=== PATIENT | female | born 1990 | race Caucasian/White ===

== ENCOUNTER 2022-11-24 20:44 | Outpatient (REF) | payer BC, SELFPAY ==
[2022-11-28 11:09] LABS: Age Gdln ACOG Testing Note (.); HPV Aptima Negative (Negative); IGP, Aptima HPV, rfx 16/18,45 Note (.)
== END 2022-11-24 20:45 | disposition home or self-care (01) ==
LOC: LAB 20:44
PROVIDERS: Visit Provider Physician Assistant
DX: Z12.4 Encounter for screening for malignant neoplasm of cervix (principal)
CPT/HCPCS: G0145

== ENCOUNTER 2023-12-30 19:39 | Outpatient (REF) | payer BC, SELFPAY ==
[2024-01-06 12:09] LABS: Age Gdln ACOG Testing Note (.); HPV Aptima Negative (Negative); IGP, Aptima HPV, rfx 16/18,45 Note (.)
== END 2023-12-30 19:40 | disposition home or self-care (01) ==
LOC: LAB 19:39
PROVIDERS: Visit Provider Physician Assistant
DX: Z01.419 Encounter for gynecological examination (general) (routine) without abnormal findings (principal)
CPT/HCPCS: 88175

== ENCOUNTER 2025-02-22 15:21 | Outpatient (REF) | payer BC, SELFPAY ==
--- OUTSIDE RECORDS SUMMARY | 2025-02-22 10:00 | XMS_ITS | Encounter Summary ---
Author Organization [facility] Address [address] [place] [address] Care Team Providers Care Marine Engineering Consultant Name Role Phone Rossana Reyes MD Primary Care Provider [phone] Reason for Visit * ReasonCommentsGynecologic Exam Encounter Details DateTypeDepartmentCare Team (Latest Contact Info)Bhaqqahnchz47/26/2025 10:00 AM ESTProcedure Visit [facility] [address] [facility] [id number] Ashely Nowak PA [address] [facility] [address] [place], [facility]11 Well woman exam with routine gynecological exam; Vaginal pain; Pelvic pain in female; Irregular periods/menstrual cycles Social History Tobacco UseTypesPacks/DayYears UsedDateSmoking Tobacco: NeverAlcohol UseStandard Drinks/WeekCommentsNot Currently0 (1 standard drink = 0.6 oz pure alcohol) CommentsNoSex and Gender InformationValueDate RecordedSex Assigned at BirthNot on fileLegal DojQexzei59/15/2023 11:47 PM EDTGender IdentityNot on file Sexual OrientationNot on filedocumented as of this encounter Last Filed Vital Signs Vital SignReadingTime TakenCommentsBlood Qpwxexqe598/7402/22/2025 10:03 AM EST Pulse--Temperature--Respiratory Rate--Oxygen Saturation--Inhaled Oxygen Concentration--Dandta239 kg (292 lb 1.9 oz)02/22/2025 10:03 AM ESTHeight--Body Mass Index45.7510 1:13 PM EDTdocumented in this encounter Progress Notes * CONNOR Otero - 02/22/2025 10:00 AM EST Reason for Appointment: Patient ID: Eli Leahy is a 34 y.o. female who presents for Gynecologic Exam Patient presents today for Annual Exam. and STD Check. MEDICATIONS Current Outpatient Medications Medication Instructions albuterol 2.5 mg, Every 4 hours PRN ferrous sulfate 325 (65 Fe) MG tablet TAKE 1 TABLET BY MOUTH IN THE MORNING AND IN THE EVENING. TAKE WITH MEALS. DO ALL THIS FOR 30 DAYS. ferrous sulfate 325 (65 Fe) MG tablet TAKE 1 TABLET BY MOUTH IN THE MORNING AND IN THE EVENING. TAKE WITH MEALS. DO ALL THIS FOR 30 DAYS. ibuprofen 800 MG tablet TAKE 1 TABLET BY MOUTH EVERY 8 HOURS NEEDED WITH FOOD montelukast (SINGULAIR) 10 mg, Oral, Daily sertraline (ZOLOFT) 25 mg, Daily Wixela Inhub 250-50 MCG/ACT aerosol powder INHALE 1 PUFF BY MOUTH AND INTO THE LUNGS TWICE DAILY FOR 30 DAYS. RINSE AFTER USE ALLERGIES Allergies Allergen Reactions Shellfish Allergy Shortness of breath Iodine Unknown Other Unknown PROBLEMS Active Ambulatory Problems Diagnosis Date Noted Well woman exam with routine gynecological exam 02/22/2025 Pelvic pain in female 02/22/2025 Resolved Ambulatory Problems Diagnosis Date Noted No Resolved Ambulatory Problems Past Medical History: Diagnosis Date Allergic rhinitis Anemia in ([facility]) Asthma (HCC) Cardiac murmur Hammer toe Heart palpitations Heartburn during ([facility]) HISTORY PAST MEDICAL HISTORY SOCIAL HISTORY Past Medical History: Diagnosis Date Allergic rhinitis Anemia in ([facility]) Asthma (HCC) Cardiac murmur Hammer toe Heart palpitations Heartburn during ([facility]) Social History Tobacco Use Smoking status: Never Smokeless tobacco: Not on file Vaping Use Vaping status: Never Used Substance Use Topics Alcohol use: Not Currently Drug use: Never FAMILY HISTORY No family history on file. SURGICAL HISTORY Past Surgical History: Procedure Laterality Date SECTION, LOW TRANSVERSE 09/19/2019 SECTION, LOW TRANSVERSE 02/03/2022 CT GUIDED TRANSVAGINAL TRANSRECTAL FLUID DRAIN 06/06/2020 CT GUIDED TRANSVAGINAL TRANSRECTAL FLUID DRAIN 06/06/2020 REVIEW OF SYSTEMS Review of Systems: Review of Systems Constitutional: Negative. HENT: Negative. Eyes: Negative. Respiratory: Negative. Cardiovascular: Negative. Gastrointestinal: Negative. Genitourinary: Negative. Musculoskeletal: Negative. Skin: Negative. Neurological: Negative. All other systems reviewed and are negative. Hematological: Negative. Endocrine: Negative. Allergic/Immunologic: Negative. OBJECTIVE Objective: Physical Exam Constitutional: Appearance: Normal appearance. She is well-developed. Genitourinary: Vulva normal. Right Adnexa: not tender and no mass present. Left Adnexa: not tender and no mass present. No cervical discharge. Breasts: Breasts are soft. Right: Normal. Left: Normal. HENT: Head: Normocephalic. Nose: Nose normal. Mouth/Throat: Mouth: Mucous membranes are moist. Cardiovascular: Rate and Rhythm: Normal rate and regular rhythm. Pulmonary: Effort: Pulmonary effort is normal. Breath sounds: Normal breath sounds. Abdominal: General: Bowel sounds are normal. There is no distension. Palpations: Abdomen is soft. Tenderness: There is no abdominal tenderness. There is no guarding or rebound. Musculoskeletal: General: No swelling. Normal range of motion. Cervical back: Normal range of motion. Right lower leg: No edema. Left lower leg: No edema. Neurological: General: No focal deficit present. Mental Status: She is alert and oriented to person, place, and time. Skin: General: Skin is warm and dry. Psychiatric: Mood and Affect: Mood normal. Behavior: Behavior normal. Vitals and nursing note reviewed. Exam conducted with a profile shaper operator present. Vitals: Estimated body mass index is 45.75 kg/m?? as calculated from the following: Height as of 12/30/23: 5' 7 . Weight as of this encounter: 292 lb 1.9 oz. BP: 118/74 Patient's last menstrual period was 02/17/2025 (exact date). ASSESSMENT & PLAN ICD-10-CM 1. Well woman exam with routine gynecological exam Z01.419 Pap Smear HPV DNA probe, amplified POCT urinalysis dipstick manually resulted 2. Vaginal pain R10.20 POCT urinalysis dipstick manually resulted SURESWAB(R) ADVANCED VAGINITIS PLUS, TMA CHLAMYDIA TRACHOMATIS (GENITO/STI) Neisseria gonorrhea DNA probe, direct 3. Pelvic pain in female R10.20 SURESWAB(R) ADVANCED VAGINITIS PLUS, TMA CHLAMYDIA TRACHOMATIS (GENITO/STI) Neisseria gonorrhea DNA probe, direct US Pelvis w/ TV 4. Irregular periods/menstrual cycles N92.6 US Pelvis w/ TV Orders Placed This Encounter Procedures HPV DNA probe, amplified US Pelvis w/ TV CHLAMYDIA TRACHOMATIS (GENITO/STI) Neisseria gonorrhea DNA probe, direct POCT urinalysis dipstick manually resulted Annual Wellness Exam: Patient presents today for routine annual exam. Patient states she has complaints of AUB and pelvicpain, pt given ultrasound order to have obtained. . Patients vitals were reviewed and within normal limits. Growth and development is noted to be appropriate for age. Menstrual history is noted to be irregular with concerns reported. No mental health concerns was expressed. Pap Smear: Speculum was inserted into the vagina and pap was obtained without difficulty. HPV testing was performed per age guideline. Patient was advised that pap results could take anywhere from 7 to 10 days to receive and our office will reach out to the patient with those once we have them. Patient can also view results via [employer]. I reinforced importance of condom use for STI prevention. Patient requested cultures to be performed with today's visit. Breast Exam: Upon examination, clinical breast exam was noted to be normal. Patient was counseled on breast self-awareness, including the importance of knowing what is normal for her own breasts and promptly reporting any changes such as new lumps, skin dimpling, nipple discharge, or pain. Screening mammogram recommended annually beginning at age 40 or earlier if risk factors are present. Discussed signs and symptoms of breast cancer and when to seek medical attention. Answered all patient questions. Contraceptive Counseling (if applicable): Patient is currently using vasectomy as a form of contraceptive. Patient does not desire control at this time. Follow Up: Patient is to return to our office in one year for annual exam unless needed otherwise. Documented by Vanessa Maria LPN on behalf of: CONNOR Otero documented in this encounter Plan of Treatment DateTypeDepartmentCare Team (Latest Contact Info)Zusmuxmaqmw45/10/2025 9:00 AM ESTAncillary Procedure [facility] [address] [place] [id number] 02/27/2026 11:00 AM ESTProcedure Visit [facility] [address] [facility] [place] [phone] Ashely Nowak PA [address] [facility] [place] [address] NameTypePriorityAssociated DiagnosesOrder SchedulePap SmearPathology and CytologyRoutine Well woman exam with routine gynecological exam Ordered: 02/22/2025HPV DNA probe, amplifiedMicrobiologyRoutine Well woman exam with routine gynecological exam Ordered: 02/22/2025SURESWAB(R) ADVANCED VAGINITIS PLUS, TMAPathology and CytologyRoutine Vaginal pain Pelvic pain in female Ordered: 02/22/2025HLAMYDIA TRACHOMATIS (GENITO/STI)LabRoutine Vaginal pain Pelvic pain in female Ordered: 02/22/2025Neisseria gonorrhea DNA probe, directLabRoutine Vaginal pain Pelvic pain in female Ordered: 02/22/2025US Pelvis w/ TVImagingRoutine Pelvic pain in female Irregular periods/menstrual cycles Expected: 02/22/2025, Expires: 08/22/2025documented as of this encounter Procedures Procedure NamePriorityDate/TimeAssociated DiagnosisCommentsPOCT URINALYSIS PLEOEIWQUvpkaod17/26/2025 10:48 AM EST Well woman exam with routine gynecological exam Vaginal pain documented in this encounter Results * POCT urinalysis dipstick manually resulted (02/22/2025 10:48 AM EST)Component ValueRef RangeTest MethodAnalysis TimePerformed AtPathologist SignatureColor, UAYellowClarity, UAClearGlucose, UANegativeNegative - 2000(110) ++++ mg/dL Bilirubin, UANegativeNegative - 4(70) +++ mg/dLKetones, UANegativeNegative - 160(16) ++++ mg/dLSpec Grav, UA1.0151 - 1.03Blood, UANegativeNegative - 50 Julio/mcLpH, UA6.05 - 9Protein, UANegativeNegative - 1999(20) ++++ mg/dL Urobilinogen, UA0.20.2 - 12 mg/dLLeukocytes, UANegativeNegative - 500+++ Francisco/mcLNitrite, UANegativeNegative - PositiveSpecimen (Source)Anatomical Location / LateralityCollection Method / VolumeCollection TimeReceived Time Urine02/22/2025 10:48 AM EST Narrative Authorizing ProviderResult TypeResult StatusDale [facility] OF CARE TEST ENTER/EDIT ORDERABLESFinal Result documented in this encounter Visit Diagnoses Diagnosis Well woman exam with routine gynecological exam Routine gynecological examination Vaginal pain Unspecified symptom associated with female genital organs Pelvic pain in female Unspecified symptom associated with female genital organs Irregular periods/menstrual cycles documented in this encounter Care Teams Team MemberRelationshipSpecialtyStart DateEnd Date Rossana Reyes MD [address] [place] [address], [address], [place] [address] PCP - GeneralFamily Medicine11/24/22documented as of this encounter
--- OUTSIDE RECORDS SUMMARY | 2025-02-22 15:26 | XMS_ITS | Clinical Summary ---
Author Organization [facility] Address [address] [facility] [facility], [address] [place] [address] Care Team Providers Care Metal Bending Machine Operator Name Role Phone Reyes Rossana DRE - AUTOMATIC CIGAR WRAPPER TENDER Primary Care Provider Social History Tobacco UseTypesPacks/DayYears UsedDateSmoking Tobacco: Never Assessed CommentsUnknownSex and Gender InformationValueDate RecordedSex Assigned at Obgvoz6501/31/2025 12:58 PM ESTLegal WwfWjkcbd49/04/2025 12:55 PM ESTGender PnelugneTaiwyj47/04/2025 12:58 PM ESTSexual JxhwphkbivwIazllefu67/04/2025 12:58 PM EST Plan of Treatment DateTypeDepartmentCare Team (Latest Contact Info)Vitbtjmoxwc48/10/2026 10:00 AM ESTOffice Visit [facility] [address] [place] [address] [address] [place] [address] [place] [address] [place] [address] [address] [place] [address] [facility] MaintenanceDue DateLast DoneCommentsDepression Iukcqf5910/26/2002Varicella vaccine (1 of 2 - 13+ 2-dose series)10/27/2003HIV xxikvy6010/26/2005Hepatitis C bxxswn6610/26/2008DTaP/Tdap/Td vaccine (1 - Tdap) 2009Hepatitis B vaccine (1 of 3 - 19+ 3-dose series)2009Pap smear 10/27/2011Cervical cancer wixgxj4910/26/2020HPV (without or with Pap)2020Flu vaccine (#1)10/28/2024OVID-19 Vaccine ( season)2024HPV vaccine (No Doses Required)CompletedHepatitis A vaccineAged OutNo longer eligible based on patient's age to complete this topicHib vaccineAged OutNo longer eligible based on patient's age to complete this topicMeningococcal (ACWY) vaccineAged OutNo longer eligible based on patient's age to complete this topicMeningococcal B vaccineAged OutNo longer eligible based on patient's age to complete this topicPneumococcal 0-49 years VaccineAged OutNo longer eligible based on patient's age to complete this topicPolio vaccineAged OutNo longer eligible based on patient's age to complete this topic Care Teams Team MemberRelationshipSpecialtyStart DateEnd Date Rossana Reyes APRN - NP [address] [place] [phone] PCP - GeneralFamily Uzoukell78/4/25
--- OUTSIDE RECORDS SUMMARY | 2025-02-22 15:27 | XMS_ITS | Encounter Summary ---
Author Organization [facility] Address [address] [facility] [place] [address] Care Team Providers Care Spring Coiling Machine Setter Name Role Phone Rossana Reyes MD Primary Care Provider [phone] Encounter Details DateTypeDepartmentCare Team (Latest Contact Info)Gqwpeonnacl18/26/2025amboo flowsheet [facility] [address] [place] [address] [place] [address] Ashely Nowak PA [address] [facility] [address] [place], [place] [address] Social History Tobacco UseTypesPacks/DayYears UsedDateSmoking Tobacco: NeverAlcohol UseStandard Drinks/WeekCommentsNot Currently0 (1 standard drink = 0.6 oz pure alcohol) CommentsNoSex and Gender InformationValueDate RecordedSex Assigned at BirthNot on fileLegal PohKmpcpa08/15/2023 11:47 PM EDTGender IdentityNot on file Sexual OrientationNot on filedocumented as of this encounter Plan of Treatment DateTypeDepartmentCare Team (Latest Contact Info)Ttapgnhbvnz48/10/2025 9:00 AM ESTAncillary Procedure [facility] [place] [address] 02/27/2026 11:00 AM ESTProcedure Visit [facility] [address] [place], [place] [address] [address] Ashely Nowak PA [address] [place] [address] [place] [address] documented as of this encounter Visit Diagnoses Not on filedocumented in this encounter Care Teams Team MemberRelationshipSpecialtyStart DateEnd Date Rossana Reyes MD [address], [place] [address] PCP - GeneralFamily Medicine11/24/22documented as of this encounter
--- OUTSIDE RECORDS SUMMARY | 2025-02-22 15:27 | XMS_ITS | Clinical Summary ---
Author Organization [facility] Address [address] [place] [address] Care Team Providers Care Promotional Advertising Assistant Name Role Phone Rossana Reyes MD Primary Care Provider [phone] Allergies Active AllergyReactionsCriticalityNoted FwvpKtgslyaeWqxozlZiixxwq11/28/2023Other Xzyfcvf9111/24/2022Shellfish AllergyShortness of gmwqomKazc60/20/2019 Medications MedicationSigDispense QuantityRefillsLast FilledStart DateEnd DateStatus ferrous sulfate 325 (65 Fe) MG tablet TAKE 1 TABLET BY MOUTH IN THE MORNING AND IN THE EVENING. TAKE WITH MEALS. DO ALL THIS FOR 30 DAYS.10/25/2022ctive Wixela Inhub 250-50 MCG/ACT aerosol powder INHALE 1 PUFF BY MOUTH AND INTO THE LUNGS TWICE DAILY FOR 30 DAYS. RINSE AFTER USE10/07/2022ctive ferrous sulfate 325 (65 Fe) MG tablet TAKE 1 TABLET BY MOUTH IN THE MORNING AND IN THE EVENING. TAKE WITH MEALS. DO ALL THIS FOR 30 DAYS.10/01/2022ctive ibuprofen 800 MG tablet TAKE 1 TABLET BY MOUTH EVERY 8 HOURS NEEDED WITH FOOD02/05/2022ctive montelukast (Singulair) 10 MG tablet Take 10 mg by mouth in the morning.05/08/2022ctive albuterol (2.5 MG/3ML) 0.083% nebulizer solution Inhale 2.5 mg every 4 (four) hours if rpvwna0104/25/2024tive sertraline (Zoloft) 25 MG tablet Take 25 mg by mouth Daily5Active predniSONE (Deltasone) 10 MG tablet Indications:Plantar fasciitis of right foot1 tablet twice daily x 7 days; followed by 1 tablet daily as directed until complete 21 tablet Discontinued Active Problems ProblemNoted DateDiagnosed DateWell woman exam with routine gynecological exam 02/22/2025Pelvic pain in ixwlfo8302/22/2025 Encounters DateTypeDepartmentCare LpldKehgihjdvxl47/26/2025 10:00 AM ESTProcedure Visit [facility] [address] [place] [address] [place] [address] Ashely Nowak PA Well woman exam with routine gynecological exam; Vaginal pain; Pelvic pain in female; Irregular periods/menstrual zcrocy4202/22/2025amboo flowsheet [facility]DE [facility] [address] [place] [address] [place] [address] Ashely Nowak PA from Last 3 Months Family History RelationNameStatusCommentsFatherAliveMotherAlive Social History Tobacco UseTypesPacks/DayYears UsedDateSmoking Tobacco: Never Tobacco Cessation:Counseling Given: Not Answered Alcohol UseStandard Drinks/WeekCommentsNot Currently0 (1 standard drink = 0.6 oz pure alcohol)CommentsNoSex and Gender InformationValueDate RecordedSex Assigned at BirthNot on fileLegal CmrRuvfew58/15/2023 11:47 PM EDTGender IdentityNot on fileSexual OrientationNot on file Last Filed Vital Signs Vital SignReadingTime TakenCommentsBlood Lohfeaok743/7402/22/2025 10:03 AM EST Pulse--Temperature--Respiratory Rate--Oxygen Saturation--Inhaled Oxygen Concentration--Tdmoji399 kg (292 lb 1.9 oz)02/22/2025 10:03 AM AMRAbfgsu673.2 cm (5' 7 )12/30/2023 1:13 PM EDTBody Mass Index45.7512/30/2023 1:13 PM EDT Plan of Treatment DateTypeDepartmentCare Team (Latest Contact Info)Vzzieezbitr74/10/2025 9:00 AM ESTAncillary Procedure [facility] [address] [place] [address] [place] [address] 02/27/2026 11:00 AM ESTProcedure Visit [facility] [address] [facility] [place] [address] Ashely Nowak PA [address] [facility] [address] [place], [place] [id number] Procedures Procedure NamePriorityDate/TimeAssociated DiagnosisCommentsPOCT URINALYSIS TVIWTGFQRxrxmjc22/26/2025 10:48 AM EST Well woman exam with routine gynecological exam Vaginal pain from Last 3 Months Results * POCT urinalysis dipstick manually resulted (02/22/2025 10:48 AM EST)Component ValueRef RangeTest MethodAnalysis TimePerformed AtPathologist SignatureColor, UAYellowClarity, UAClearGlucose, UANegativeNegative - 2000(110) ++++ mg/dL Bilirubin, UANegativeNegative - 4(70) +++ mg/dLKetones, UANegativeNegative - 160(16) ++++ mg/dLSpec Grav, UA1.0151 - 1.03Blood, UANegativeNegative - 50 Julio/mcLpH, UA6.05 - 9Protein, UANegativeNegative - 2000(20) ++++ mg/dL Urobilinogen, UA0.20.2 - 12 mg/dLLeukocytes, UANegativeNegative - 500+++ Francisco/mcLNitrite, UANegativeNegative - PositiveSpecimen (Source)Anatomical Location / LateralityCollection Method / VolumeCollection TimeReceived Time Urine02/22/2025 10:48 AM EST Narrative Authorizing ProviderResult TypeResult StatusAmy She [facility] TEST ENTER/EDIT ORDERABLESFinal Result from Last 3 Months Insurance Care Teams Team MemberRelationshipSpecialtyStart DateEnd Date Rossana Reyes MD [address], [place] [address] PCP - GeneralFaspaulding rehabilitation [facility] Medicine11/24/22
--- OUTSIDE RECORDS SUMMARY | 2025-02-22 15:28 | XMS_ITS | CCD ---
Author Organization [facility] Care Team Providers Care Phd Intern Name Role Phone SAMSA ., RUDOLPH Admitting Unavailable SAMSA ., RUDOLPH Attending Unavailable TAM ., DR COLLIER Consulting Unavailable ANNE-MARIE, DIANE Primary Care Unavailable TAM ., DR COLLIER Admitting Unavailable TAM ., DR COLLIER Attending Unavailable TAM ., DR COLLIER Consulting Unavailable TAM ., DR COLLIER Attending Unavailable ANNE-MARIE, DIANE Primary Care Unavailable TAM ., DR COLLIER Admitting Unavailable TAM ., DR COLLIER Admitting Unavailable TAM ., DR COLLIER Consulting Unavailable TAM ., DR COLLIER Attending Unavailable ANNE-MARIE, DIANE Primary Care Unavailable TAM ., DR COLLIER Attending Unavailable TAM ., DR COLLIER Admitting Unavailable ANNE-MARIE, DIANE Primary Care Unavailable WILBURN, YUNG Attending Unavailable ANNE-MARIE, DIANE Primary Care Unavailable WILBURN, YNUG Admitting Unavailable ANNE-MARIE, DIANE Primary Care Unavailable SAMSA ., RUDOLPH Admitting Unavailable SAMSA ., RUDOLPH Attending Unavailable ANNE-MARIE, DIANE Primary Care Unavailable TAM ., DR COLLIER Admitting Unavailable TAM ., DR COLLIER Attending Unavailable ANNE-MARIE, DIANE Primary Care Unavailable SAMSA ., RUDOLPH Consulting Unavailable SAMSA ., RUDOLPH Attending Unavailable SAMSA ., RUDOLPH Admitting Unavailable TAM ., DR COLLIER Procedure Practitioner Unavail able TAM ., DR COLLIER Consulting Unavailable TAM ., DR COLLIER Attending Unavailable ANNE-MARIE, DIANE Primary Care Unavailable TAM ., DR COLLIER Admitting Unavailable JONI DAVIS Consulting Unavailable MARQUITAAYAYESHA SARAH Consulting Unavailable MARILYN CRAWFORD Consulting Unavailable CORY ALCALA Consulting Unavailable TAM ., DR COLLIER Admitting Unavailable TAM ., DR COLLIER Consulting Unavailable TAM ., DR COLLIER Attending Unavailable ANNE-MARIE, DIANE Primary Care Unavailable Zieber, Ramin Consulting Unavailable TAM ., DR COLLIER Consulting Unavailable TAM ., DR COLLIER Attending Unavailable ANNE-MARIE, DIANE Primary Care Unavailable TAM ., DR COLLIER Admitting Unavailable Zieber, Ramin Consulting Unavailable TAM ., DR COLLIER Consulting Unavailable TAM ., DR COLLIER Attending Unavailable ANNE-MARIE, DIANE Primary Care Unavailable TAM ., DR COLLIER Admitting Unavailable ANNE-MARIE, DIANE Primary Care Unavailable TAM ., DR COLLIER Attending Unavailable TAM ., DR COLLIER Admitting Unavailable WENDOVER, DR MARY ANNE Mckeon Consulting Unavailable TAM ., DR COLLIER Consulting Unavailable TAM ., DR COLLIER Admitting Unavailable TAM ., DR COLLIER Consulting Unavailable TAM ., DR COLLIER Attending Unavailable ANNE-MARIE, DIANE Primary Care Unavailable ASHELY NOWAK Attending Unavailable Eric ELLISON, [facility] Primary Care Provider Reyes VIDEO GAME ENGINEER-FEEDER LOADER, [facility] Primary Care Provider Reyes VIDEO GAME ENGINEER-[facility], [facility] Primary Care Provider REYES, ARTURO Primary Care Unavailable GABRIEL GARCIA Attending Unavailable REYES, ARTURO Referring Unavailable REYES, ARTURO Primary Care Unavailable LAURYN CHANEL Referring Unavailable REYES, ARTURO Primary Care Unavailable REYES, ARTURO Referring Unavailable REYES, ARTURO Primary Care Unavailable Reyes VIDEO GAME ENGINEER-[facility], [facility] Primary Care Provider REYES, ARTURO Attending Unavailable REYES, ARTURO Referring Unavailable REYES, ARTURO Primary Care Unavailable REYES, ARTURO Attending Unavailable REYES, ARTURO Referring Unavailable REYES, ARTURO Primary Care Unavailable LAURYN CHANLE Attending Unavailable REYES, ARTURO Referring Unavailable REYES, ARTURO Primary Care Unavailable REYES, ARTURO Attending Unavailable REYES, ARTURO Referring Unavailable REYES, ARTURO Primary Care Unavailable REYES, ARTURO Attending Unavailable REYES, ARTURO Referring Unavailable REYES, ARTURO Primary Care Unavailable BECKY REECE Attending Unavailable REYES, ARTURO Referring Unavailable REYES, ARTURO Primary Care Unavailable BECKY REECE Attending Unavailable REYES, ARTURO Referring Unavailable REYES, ARTURO Primary Care Unavailable BECKY REECE Attending Unavailable REYES, ARTURO Referring Unavailable REYES, ARTURO Primary Care Unavailable Allergies Allergy ClassificationReported Allergen(s)Allergy TypeDate of OnsetReaction(s) Facility (4 sources)IodineDrug Khmcbov58-30-9080MrjnrhcOF[facility] Work Phone: (4 sources)ShellfishPropensity to adverse zypebuobl33-29-6861Tvsuxuloi of breath [facility] Healthcare (4 sources)OtherAllergy to ircwmkgpt53-58-5995CylmxhqNFSG Healthcare (20 sources)Shellfish; Translations: [SHELLFISH DERIVED]Propensity to adverse reactions to xmjz54-08-1923Cdeuvfjjc [facility]ath[facility] Medications Current Medications MedicationDrug Class(es)DatesSig (Normalized)Sig (Original)albuterol 0.83 mg/ml inhalation solution (20 sources)beta2-Adrenergic AgonistStart: 49-23-7560duja 3 mL by inhalation every four hours as needed for wheezingalbuterol (PROVENTIL,VENTOLIN) 2.5 mg /3 mL (0.083 %) nebulizer solution Indications: Moderate persistent asthma, unspecified whether complicated , Acute bronchitis, unspecified organism Inhale 3 mL (2.5 mg total) by nebulization every 4 (four) hours as needed for wheezing or shortness of breath. 75 mL 2 04/25/2024 ActiveStart: 07-09-2022 End: 33-06-3944yiuu 2 puff(s) by inhalation every four hours as neededalbuterol HFA 90 mcg/act inhaler INHALE 2 PUFFS INTO THE LUNGS EVERY 4 HOURS NEEDED FOR SHORTNESS OF BREATH 07/09/2022 12/30/2023 DiscontinuedStart: 02-22-2020 End: 13-15-7074shgx 2 puff(s) by inhalation every four hours as needed for wheezingalbuterol (PROVENTIL HFA;VENTOLIN HFA) 90 mcg/actuation inhaler Indications: Moderate persistent asthma with acute exacerbation Inhale 2 puffs every 4 (four) hours as needed for wheezing or shortnessof breath. 18 g 2 02/02/2024 Active End: 25-16-3015kpcjnkspm HFA 90 mcg/act inhaler every 4 (four) hours. 12/30/2023 Discontinuedamoxicillin 500 mg oral capsule (1 source)Penicillin-class AntibacterialStart: 12-23-2024 End: 59-34-3154xmsh 1 capsule by mouth in the morning, then take 1 capsule by mouth at bedtimeamoxicillin (AMOXIL) 500 mg capsule Indications: 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 Take 1capsule (500 mg total) by mouth in the morning and 1 capsule (500 mg total) before bedtime. Do all this for 7 days. 14 capsule 12/23/2024 12/30/2024 Activeamoxicillin 875 mg / clavulanate 125 mg oral tablet (4 sources)Penicillin-class AntibacterialStart: 09-02-2024 End: 66-80-0246djap 1 tablet by mouth once in the morningamoxicillin-pot clavulanate (AUGMENTIN) 875-125 mg per tablet Indications: Right non-suppurative otitis media Take 1 tablet by mouth in the morning and 1 tablet before bedtime. Do all this for 7 days. 14 tablet 09/02/2024 09/09/2024 ActiveStart: 04-25-2024 End: 61-15-4401xwlg 1 tablet by mouth once in the morningamoxicillin-pot clavulanate (AUGMENTIN) 875-125 mg per tablet Take 1 tablet by mouth in the morningand 1 tablet before bedtime. Do all this for 10 days. 20 tablet 04/25/2024 05/05/2024 ActiveStart: 02-02-2024 End: 87-49-6962vrnl 1 tablet by mouth once in the morningamoxicillin-pot clavulanate (AUGMENTIN) 875-125 mg per tablet Take 1 tablet by mouth in the morningand 1 tablet before bedtime. Do all this for 7 days. 14 tablet 02/02/2024 02/09/2024 Activeazithromycin 250 mg oral tablet (13 sources)Macrolide AntimicrobialStart: 05-11-2024 End: 85-21-1321kkil 1 tablet by mouth in the morning, then take 2 tablets by mouth once daily, then take 1 tablet by mouth once dailyazithromycin (ZITHROMAX) 250 mg tablet Take 1 tablet (250 mg total) by mouth in the morning for 5 days. Take 2 tablets the first day, then 1 tablet daily for 4 days.. 6 tablet 05/11/2024 05/16/2024 Active End: 30-54-4322tbcx 1 tablet by mouth in the morningazithromycin (ZITHROMAX) 500 mg tablet Take 1 tablet (500 mg total) by mouth in the morning. 05/11/2024 Discontinued (Therapy completed)60 actuat budesonide 0.16 mg/actuat / formoterol fumarate 0.0045 mg/actuat metered dose inhaler (3 sources)Corticosteroid, beta2-Adrenergic Agonist End: 63-57-3444Yqavmpmmd 160-4.5 MCG/ACT inhaler every 12 (twelve) hours. 12/30/2023 Discontinuedcalcium polycarbophil 625 mg oral tablet (12 sources)Start: 84-92-7021ltzm 1 tablet by mouth in the morningpolycarbophil (FIBERCON) 625 mg tablet Take 1 tablet (625 mg total) by mouth in the morning. 30 tablet 2 10/05/2024 Activecholecalciferol 0.125 mg oral tablet (9 sources)Vitamin DStart: 57-40-7296qdbu 1 tablet by mouth in the morning cholecalciferol 25 mcg (1,000 unit) tablet Take 1 tablet (1,000 Units total) by mouth in the morning. 12/23/2024 ActiveStart: 29-46-1454yqwj 1 tablet by mouth once in the morningcholecalciferol, vitamin D3, (VITAMIN D3) 5,000 units tablet Indications: Vitamin D deficiency Take1 tablet (5,000 Units total) by mouth in the morning. 90 tablet 12/23/2024 Activediclofenac sodium 75 mg delayed release oral tablet (1 source)Nonsteroidal Anti-inflammatory DrugStart: 05-26-2023 End: 18-97-7379kzyu 1 tablet by mouth twice daily as needed for paindiclofenac (VOLTAREN) 75 mg EC tablet Take 1 tablet (75 mg total) by mouth 2 (two) times a day as needed (back pain) for up to 10 days. 20 tablet 0 05/26/2023 06/05/2023 Activeferrous sulfate 325 mg oral tablet (20 sources)Start: 10-01-2022 End: 24-33-7056kpua 1 tablet by mouth at mealtimeferrous sulfate 325 (65 FE) MG tablet Indications: Iron deficiency anemia, unspecified iron deficiency anemia type TAKE 1 TABLET BY MOUTH IN THE MORNING AND IN THE EVENING. TAKE WITH MEALS. DO ALL THIS FOR 30 DAYS. 180 tablet 5 06/21/2024 Activefluticasone propionate 0.05 mg/actuat metered dose nasal spray (20 sources)CorticosteroidStart: 66-09-6434kfko 2 spray(s) nasal route in the morningfluticasone propionate (FLONASE) 50 mcg/actuation nasal spray SPRAY 2 SPRAYS INTO EACH NOSTRIL IN THE MORNING 48 mL 1 02/29/2024 ActiveStart: 05-26-2023 End: 54-02-6744szci 2 spray(s) nasal route in the morningfluticasone propionate (FLONASE) 50 mcg/actuation nasal spray Administer 2 sprays into each nostrilin the morning. 16 mL 02/02/2024 02/29/2024 Zajaknmvgcgv52 actuat fluticasone propionate 0.25 mg/actuat / salmeterol 0.05 mg/actuat dry powder inhaler (20 sources)Corticosteroid, beta2-Adrenergic AgonistStart: 07-79-4059xevt 1 puff(s) by mouth twice dailyWixela Inhub 250-50 MCG/ACT aerosol powder INHALE 1 PUFF BY MOUTH AND INTO THE LUNGS TWICE DAILY FOR 30 DAYS. RINSE AFTER USE 10/07/2022 ActiveStart: 46-79-9320qtby 1 puff(s) by inhalation at bedtime fluticasone propion-salmeteroL (WIXELA INHUB) 250-50 mcg/dose DISKUS Inhale 1 puff in the morning and at bedtime. 07/29/2022 ActiveStart: 09-45-3533tfya 1 puff(s) by inhalation at bedtimefluticasone propion-salmeteroL (WIXELA INHUB) 250-50 mcg/dose DISKUS Inhale 1 puff in the morning and at bedtime. 0 07/29/2022 Urspsj16 hr guaiFENesin 600 mg extended release oral tablet (20 sources)Start: 13-92-8935huij 1 tablet by mouth onceguaiFENesin (MUCINEX) 600 mg tablet extended release 12hr Take 1 tablet (600 mg total) by mouth every 12 (twelve) hours. 30 tablet 05/11/2024 ActiveStart: 04-25-2024 End: 38-57-9628hbhv 1 tablet by mouth onceguaiFENesin (MUCINEX) 600 mg tablet extended release 12hr Take 1 tablet (600 mg total) by mouth every 12 (twelve) hours for 10 days. 20 tablet 04/25/2024 05/05/2024 ActiveStart: 05-26-2023 End: 88-56-6798wbsr 1 tablet by mouth onceguaiFENesin (MUCINEX) 600 mg tablet extended release 12hr Take 1 tablet (600 mg total) by mouth every 12 (twelve) hours for 10 days. 20 tablet 0 05/26/2023 06/05/2023 ActivehydrOXYzine hydrochloride 10 mg oral tablet (3 sources)AntihistamineStart: 12-23-2024 End: 91-80-5652mdob 1 tablet by mouth every eight hours as needed for anxiety and anxiety and anxietyhydrOXYzine (ATARAX) 10 mg tablet Indications: Anxiety Take 1 tablet (10 mg total) by mouth every 8(eight) hours as needed for anxiety for up to 20 days. 30 tablet 12/23/2024 01/12/2025 Activeibuprofen 800 mg oral tablet (4 sources)Nonsteroidal Anti-inflammatory DrugStart: 09-63-6922tnzg 1 tablet by mouth every eight hours as neededibuprofen 800 MG tablet TAKE 1 TABLET BY MOUTH EVERY 8 HOURS NEEDED WITH FOOD 02/05/2022 Activeloratadine 10 mg oral tablet (20 sources)Start: 05-26-2023 End: 52-51-5971qnme 1 tablet by mouth in the morningloratadine (CLARITIN) 10 mg tablet TAKE 1 TABLET (10 MG TOTAL) BY MOUTH IN THE MORNING 90 tablet 1 1 04/25/2023 Activemeclizine hydrochloride 12.5 mg oral tablet (20 sources)AntiemeticStart: 88-63-3056cghn 1 tablet by mouth in the morning, then take 1 tablet by mouth at bedtimemeclizine (ANTIVERT) 12.5 mg tablet Indications: Vertigo Take 1 tablet (12.5 mg total) by mouth in the morning and 1 tablet (12.5 mg total) before bedtime. 60 tablet 1 12/23/2024 ActiveStart: 11-18-2023 End: 51-38-0097ttmnrvgkh (ANTIVERT) 25 mg tablet Indications: Vertigo Chew 1 tablet (25 mg total) and swallow 3 (three) times a day as needed for dizziness. 30 tablet 2 11/18/2023 12/23/2024 Discontinued (Dose adjustment)montelukast 10 mg oral tablet (8 sources)Leukotriene Receptor AntagonistStart: 99-37-2930zgwv 1 tablet by mouth in the morningmontelukast (Singulair) 10 MG tablet Take 10 mg by mouth in the morning. 05/08/2022 Activemontelukast (SINGULAIR) 5 mg chewable tablet Chew 1 tablet (5 mg total) and swallow nightly. Activenorethindrone 0.35 mg oral tablet (3 sources)Start: 10-28-2022 End: 66-92-4662iyas 1 tablet by mouth in the morningnorethindrone (Incassia) 0.35 MG tablet Indications: Encounter for surveillance of contraceptive pills Take 1 tablet (0.35 mg) by mouth in the morning. 28 tablet 12 10/28/2022 12/30/2023 Discontinuedondansetron 4 mg oral tablet (20 sources)Serotonin-3 Receptor AntagonistStart: 05-07-2024 End: 48-85-3239coeg 1 tablet by mouth every eight hours as needed for nausea and vomitingondansetron (ZOFRAN) 4 mg tablet Take 1 tablet (4 mg total) by mouth every 8 (eight) hours as needed for nausea or vomiting. 20 tablet 09/02/2024 Activepantoprazole 40 mg delayed release oral tablet (14 sources)Proton Pump InhibitorStart: 09-02-2024 End: 38-06-2457qsep 1 tablet by mouth once daily before breakfast, then take 1 tablet by mouth at bedtimepantoprazole (PROTONIX) 40 mg EC tablet Indications: Gastroesophageal reflux disease, unspecified whether esophagitis present Take 1 tablet (40 mg total) by mouth every morning before breakfast. TAKE1 TABLET (40 MG TOTAL) BY MOUTH IN THE MORNING AND BEFORE BEDTIME 90 tablet 10/05/2024 01/20/2025 Discontinued (Therapy completed)predniSONE 20 mg oral tablet (5 sources)Start: 04-25-2024 End: 27-86-7578crel 2 tablets by mouth in the morningpredniSONE (DELTASONE) 20 mg tablet Take 2 tablets (40 mg total) by mouth in the morning for 5 days. 10 tablet 04/25/2024 04/30/2024 ActiveStart: 66-29-6653zeqieiGVLW (Deltasone) 10 MG tablet Indications: Plantar fasciitis of right foot 1 tablet twice daily x 7 days; followed by 1 tablet daily as directed until complete 21 tablet 12/16/2022 Activesertraline 25 mg oral tablet (11 sources)Serotonin Reuptake InhibitorStart: 73-07-0386cqat 1 tablet by mouth in the morningsertraline (ZOLOFT) 25 mg tablet Indications: Anxiety Take 1 tablet (25 mg total) by mouth in the morning. 90 tablet 1 01/23/2025 Active Start: 12-23-2024 End: 44-45-3252byhl 1 tablet by mouth in the morningsertraline (ZOLOFT) 25 mg tablet Indications: Anxiety Take 1 tablet (25 mg total) by mouth in the morning. 90 tablet 1 01/20/2025 01/23/2025 Discontinued (Reorder) Completed/Discontinued Medications MedicationDrug Class(es)DatesSig (Normalized)Sig (Original)benzonatate 100 mg oral capsule (15 sources)Non-narcotic AntitussiveStart: 01-20-2025 End: 66-23-8872fkuz 1 capsule by mouth three times daily as needed for cough benzonatate (TESSALON PERLES) 100 mg capsule Indications: Mild persistent asthma with exacerbation , Upper respiratory infection, viral Take 1 capsule (100 mg total) by mouth 3 (three) times a day asneeded for cough. 30 capsule 01/20/2025 02/03/2025 Discontinued (Therapy completed)Start: 05-07-2024 End: 45-35-3675akyd 1 capsule by mouth three times daily as needed for cough benzonatate (TESSALON PERLES) 100 mg capsule Take 1 capsule (100 mg total) by mouth 3 (three) timesa day as needed for cough. 30 capsule 05/07/2024 12/23/2024 Discontinued (Therapy completed)cyclobenzaprine hydrochloride 5 mg oral tablet (20 sources)Muscle RelaxantStart: 05-26-2023 End: 80-18-3017uahl 1 tablet by mouth three times daily as needed for muscle spasmscyclobenzaprine (FLEXERIL) 5 mg tablet Take 1 tablet (5 mg total) by mouth 3 (three) times a day asneeded for muscle spasms. 30 tablet 05/26/2023 12/23/2024 Discontinued (Therapy completed)methylPREDNISolone 4 mg oral tablet (20 sources)CorticosteroidStart: 10-18-2024 End: 14-84-3473vbpr 1 tablet by mouth in the morningmethylPREDNISolone (MEDROL, KADEN,) 4 mg tablet Indications: Mild persistent asthma with exacerbation, Upper respiratory infection, viral Take 1 tablet (4 mg total) by mouth in the morning. follow package directions. 21 tablet 01/20/2025 02/03/2025 Discontinued (Therapy completed)Start: 05-26-2023 End: 04-60-8346gzvi 1 tablet by mouth in the morningmethylPREDNISolone (MEDROL, KADEN,) 4 mg tablet Take 1 tablet (4 mg total) by mouth in the morning. follow package directions. 21 tablet 02/02/2024 Active Problems Active Problems Problem ClassificationProblemDateDocumented DateEpisodic/ChronicAnxiety disorders (5 sources)Anxiety; Translations: [Anxiety disorder, unspecified]Onset: 424292-41-3437VwlmygxZdunll (20 sources)Unspecified asthma, uncomplicated; Translations: [Moderate persistent asthma]Onset: 307053-77-2547ZvdfegdOceammzzbj associated with dizziness or vertigo (6 sources)Vertigo; Translations: [Dizziness and giddiness]Onset: 12-23-2024 00-66-4023KvdpkhmcFqmsmksamc and other anemia (1 source)Iron deficiency anemia; Translations: [Iron deficiency anemia, unspecified]04-60-2378EzdxabbzYqnuvfujql disorders (4 sources)Gastroesophageal reflux disease; Translations: [Gastro-esophageal reflux disease without esophagitis]Onset: 441063-08-0669XekaketDgsbwawphov chest pain (5 sources)Chest pain, unspecified; Translations: [Chest pain]Onset: 11-29-2024 57-59-9857ZomwozmqRimyrxugykg deficiencies (2 sources)Vitamin D deficiency; Translations: [Vitamin D deficiency, unspecified]Onset: 415029-85-3062XigawsqVtxec ear and sense organ disorders (1 source)Malignant otitis externa; Translations: [Malignant otitis externa, right ear]51-00-8449UfuapafXsbjm ear and sense organ disorders (1 source)Malignant otitis externa, right ear; Translations: [Malignant otitis externa, right ear]Onset: 32-01-7026NznywchCvgki ear and sense organ disorders (2 sources)Bilateral earache; Translations: [Otalgia, bilateral]02-03-2025 EpisodicOther ear and sense organ disorders (1 source)Otalgia, bilateral; Translations: [Otalgia, bilateral]Onset: 17-86-6453UgqiqaicTlysp lower respiratory disease (1 source)Cough; Translations: [Acute cough]11-03-0375IdwkkwugSovzz nervous system disorders (1 source)Paresthesia; Translations: [Paresthesia of skin]37-73-0469Abivlrpf Other upper respiratory infections (4 sources)Upper respiratory infection; Translations: [Acute upper respiratory infection, unspecified]Onset: 104723-95-8819QxxmdabfAmqnadtv codes; unclassified (4 sources)Obstructive sleep apnea (adult) (pediatric); Translations: [OBSTRUCTIVE SLEEP APNEA]Onset: 54-91-9760GnsrmwvSkpfqnfn codes; unclassified (20 sources)Obstructive sleep apnea syndrome; Translations: [Obstructive sleep apnea (adult) (pediatric)]Onset: 882936-58-4868EtrhvimQzgzyuk disorders (2 sources)Subclinical hypothyroidism; Translations: [Other specified hypothyroidism]Onset: 524966-68-1765ZaxdbjrJibqrynqieoz (1 source)CONTACT W/AND (SUSP) EXPOS COVID-19; Translations: [CONTACT W/AND (SUSP) EXPOS COVID-19]Onset: 85-83-2079Owmdzvhsuxec (1 source)Acute cough; Translations: [Acute cough]Onset: 04-25-2024 Past or Other Problems Problem ClassificationProblemDateDocumented DateEpisodic/ChronicAbdominal pain (9 sources)Right lower quadrant pain; Translations: [Epigastric pain]Onset: 827584-15-3025JqhfwtfnCxllb bronchitis (2 sources)Acute bronchitis; Translations: [Acute bronchitis, unspecified]Onset: 833558-60-8616DrgvetjtFkvgeycmdp and other anemia (20 sources)Anemia; Translations: [Anemia, unspecified]Onset: 06-20-2020 67-94-0305ZmtxpvxdJlxvpwniwy and other anemia (1 source)Anemia, unspecified; Translations: [Anemia, unspecified]Onset: 32-80-8256RxokunahObmeikxx mellitus without complication (1 source)Other abnormal glucose; Translations: [OTHER ABNORMAL GLUCOSE]Onset: 54-63-2432UluvipbaGbspdxgx or abnormal glucose tolerance complicating ; childbirth; or the puerperium (1 source)Gestational diabetes mellitus in childbirth, unspecified control; Translations: [GEST DM CHILDBIRTHUNS CONTROL]Onset: 54-41-7371Jelxgidr Immunizations and screening for infectious disease (2 sources)Encounter for screening for human papillomavirus (HPV); Translations: [Encounter for screening for infections with a predominantly sexual mode of transmission]Onset: 21-64-2965FdgmyetnHuyoqgd and fatigue (3 sources)Fatigue; Translations: [Other fatigue]Onset: 128545-73-5881 EpisodicMood disorders (20 sources)Mood disordersOnset: 10-01-2022 Resolved: 340544-48-0068Khcxt complications of ; puerperium affecting management of mother (1 source)Onset (spontaneous) of labor after 37 completed weeks of gestation but before 39 completed weeks gestation, with delivery by (planned) section; Translations: [ONSET SPNT LBR 37WK<39WK DELC SEC]Onset: 02-12-2022 EpisodicOther complications of ; puerperium affecting management of mother (1 source)Diseases of the respiratory system complicating childbirth; Translations: [DISEASES RESP SYS COMP CHILDBIRTH]Onset: 86-31-8083IermablgKhlom complications of (4 sources)Maternal care for excessive growth, third trimester, not applicable or unspecified; Translations: [MAT CARE EXCSS FT GR 3RD TRI UNS] Onset: 54-05-6882QwonemkzEqxzb ear and sense organ disorders (20 sources)Acute otitis externa of left ear; Translations: [Unspecified acute noninfective otitis externa, left ear]Onset: 840081-60-7735ZyhxmfpxYlgqv ear and sense organ disorders (20 sources)Sensation of blocked ear; Translations: [Other specified disorders of left ear]Onset: 904044-26-2536VjwzxogmHlrmu female genital disorders (1 source)Other specified noninflammatory disorders of vagina; Translations: [OTH SPEC NONINFLAMMATORY D/O VAGINA]Onset: 38-61-9413BtclueqqOmjzs lower respiratory disease (1 source)CoughOnset: 11-17-8761SzhllalwNdqtk nervous system disorders (1 source)Paresthesia of skin; Translations: [Paresthesia of skin]Onset: 40-03-2498EzuepoxcHqqqe non-traumatic joint disorders (18 sources)Pain in left knee; Translations: [Pain in joint, lower leg]Onset: 224136-13-0045PqukkhcbPezyw non-traumatic joint disorders (1 source)Knee painOnset: 74-00-4932EqcheqqvItjty and delivery including normal (9 sources)Encounter for care and examination of lactating mother; Translations: [Encounter for routine follow-up]Onset: 16-42-7455UgwuqbjhHkqil screening for suspected conditions (not mental disorders or infectious disease) (20 sources)Encounter for screening for Streptococcus B; Translations: [Encounter for screening for malignant neoplasm of cervix]Onset: 09-24-2021 EpisodicOther upper respiratory disease (1 source)Nasal congestionOnset: 79-66-9874TyzlnomdIbiasm media and related conditions (4 sources)Otitis media of right ear; Translations: [Otitis media, unspecified, right ear]Onset: 821207-74-3810QsvlsvuwHsimprvecgtneu and other problems of amniotic cavity (1 source)Full-term premature rupture of membranes, unspecified as to length of time between rupture and onset of labor; Translations: [FT PROM UNS TM BTWN RUPT ONSET LABR]Onset: 02-01-3583CzefyndhWvrecnkb (3 sources)Maternal care for low transverse scar from previous delivery; Translations: [MAT CARE LW TRANS SCAR PREV C/S DEL]Onset: 02-03-2022 EpisodicResidual codes; unclassified (1 source)38 weeks gestation of ; Translations: [38 WEEKS GESTATION OF ]Onset: 42-00-4123FjfcvhktAtrlgyic codes; unclassified (1 source)37 weeks gestation of ; Translations: [37 WEEKS GESTATION OF ]Onset: 44-92-5641ZlstnxrgNzhydjub codes; unclassified (1 source)31 weeks gestation of ; Translations: [31 WEEKS GESTATION OF ]Onset: 46-88-6141JzxluumxOclpnqaz codes; unclassified (1 source)PainOnset: 36-66-6093SpohjrgqPtmsjcvunkv; intervertebral disc disorders; other back problems (20 sources)Acute low back pain; Translations: [Acute bilateral low back pain without sciatica]Onset: 512683-34-5735QhjomtnySxkqvpkwctct (20 sources)Onset: 12-17-2018 Resolved: 609943-98-4510Lypbjmomhjyr (1 source)Acute pain of left pwol80-51-9556Khekj infection (4 sources)Enteroviral vesicular stomatitis with exanthem; Translations: [ENTEROVIRL VESICULR STOMAT EXANTHEM]Onset: 07-85-2813Qqmrgfzj Results Test NameValueInterpretationReference RangeFacilityAPTTon 83-05-5881pIVA Coag (Bld) [Time]30 aWinsps21-25HsfYmijjzLake Granbury Medical CenterComment on above:Performed By: #### PTT ####[facility] ([facility])[address] [place] [address] VIRB-TYPE NATRIURETIC PEPTIDEon 87-20-4322Hvxogkbofkf peptide B (Bld) [Mass/Vol]55 pg/mLNormal<=100ProLake Granbury Medical CenterComment on above:Performed By: #### BNP ####[facility] ([address] [place] [address] VIRCBC WITH AUTO DIFFERENTIALon 11-29-2024 BASOPHILS ABSOLUTE COUNT (10*3/UL) BY AUTOMATED COUNT0.0 10*3/uLNormal0.0-0.2 [facility] Cleveland-FairhillComment on above:Performed By: #### CBCA ####[facility] ([address], [id number] VIRBASOPHILS RELATIVE PERCENT BY AUTOMATED COUNT0.7 %NormalProLake Granbury Medical CenterComment on above:Performed By: #### CBCA ####[address], [place] VIRCELLAVISION DIFFERENTIAL TYPE AUTOMATED DIFFERENTIALNormalProLake Granbury Medical CenterComment on above:Performed By: #### CBCA ####[facility] ([address], [id number] VIREosinophils (Bld) [#/Vol]0.1 10*3/uLNormal0.0-0.4 [facility] Companyment on above:Performed By: #### CBCA ####[facility] ([address], [id number] VIR EOSINOPHILS RELATIVE PERCENT BY AUTOMATED COUNT2.6 %NormalProLake Granbury Medical CenterComment on above:Performed By: #### CBCA ####[facility] ([address], [place] VIRErythrocyte distribution width (RBC) [Ratio]14.8 %Pyhkap46.5-15[facility]-FairhillComment on above:Performed By: #### CBCA ####[facility] ([address], [id number] VIRHematocrit (Bld) [Volume fraction]36.1 % Mucpoi70-79LctRuahvxSelect Medical Specialty Hospital - Cleveland-FairhillComment on above:Performed By: #### CBCA ####[facility] ([address] [id number] VIRHemoglobin (Bld) [Mass/Vol]12.1 g/bVQzsbrk91.7-15.5PFayette [facility] Comment on above:Performed By: #### CBCA ####[facility] ([address] [id number] VIRLYMPHOCYTES ABSOLUTE COUNT (10*3/UL) BY AUTOMATED COUNT1.5 10*3/uLNormal1.0-3.5PFayette County Memorial Hospital Comment on above:Performed By: #### CBCA ####[facility] ([address], [place] VIRLYMPHOCYTES RELATIVE PERCENT BY AUTOMATED COUNT27.1 %NormalSelect Medical Specialty Hospital - Cleveland-FairhillComment on above:Performed By: #### CBCA ####[facility] ([address], [place] VIRMCH (RBC) [Entitic mass]26.9 ssTvn64-65DbmNfejzsSelect Medical Specialty Hospital - Cleveland-FairhillComment on above:Performed By: #### CBCA ####[facility] ([address], [place] VIRMCHC (RBC) [Mass/Vol]33.5 g/oGPaxhbd25-51SknXzpvnwSelect Medical Specialty Hospital - Cleveland-FairhillComment on above:Performed By: #### CBCA ####[facility] ([address] [place] [address] VIRMCV (RBC) [Entitic vol]81 fHVjpjve30-556FdcPkorljSelect Medical Specialty Hospital [facility] Comment on above:Performed By: #### CBCA ####[facility] ([address], [id number] VIRMONOCYTES ABSOLUTE COUNT (10*3/UL) BY AUTOMATED COUNT0.4 10*3/uLNormal0.0-0.9[facility] Cleveland-FairhillComment on above:Performed By: #### CBCA ####[facility] ([address], [place] VIRMONOCYTES RELATIVE PERCENT BY AUTOMATED COUNT 8.1 %NormalSelect Medical Specialty Hospital - Cleveland-FairhillComment on above:Performed By: #### CBCA ####[facility] ([address], [id number] VIRNEUTROPHILS ABSOLUTE COUNT BY AUTOMATED COUNT3.4 10*3/uLNormal1.5-6.6 [facility]-FairhillComment on above:Performed By: #### CBCA ####[facility] ([address], [place] VIR NEUTROPHILS RELATIVE PERCENT BY AUTOMATED COUNT61.5 %[facility] Shriners HospitalComment on above:Performed By: #### CBCA ####[facility] ([address], [id number] VIRPlatelet mean volume (Bld) [Entitic vol]8.2 fLNormal7-12PFayette County Memorial HospitalComment on above: Performed By: #### CBCA ####[facility] ([address], [place] VIRPlatelets (Bld) [#/Vol]217 10*3/jDXugmai473-491 [facility] HospitalComment on above:Performed By: #### CBCA ####[facility] ([address], [place] VIRRBC COUNT 4.49 X10E12/LNormal3.8-5.2PCentennial Peaks Hospital HospitalComment on above:Performed By: #### CBCA ####[facility] ([facility])[address], [id number] VIRWBC (Bld) [#/Vol]5.6 10*3/uLNormal4-11[facility]-FairhillComment on above:Performed By: #### CBCA ####[facility] ([facility])[address], [id number] VIRCOMPREHENSIVE METABOLIC PANELon 31-81-7114Eqmxwrp [Mass/Vol]4.0 g/dLNormal3.2-5.3PFayette County Memorial HospitalComment on above:Performed By: #### CMP ####[facility] ([facility] [place] [address] VIRALP [Catalytic activity/Vol]66 U/VFpqiel24-621KyiFcwtbpLake Granbury Medical CenterComment on above: Performed By: #### CMP ####[facility] ([place] [address] [place] [address] VIRALT [Catalytic activity/Vol]21 U/LNormal<=31 [facility]-FairhillComment on above:Performed By: #### CMP ####[facility] ([facility] [place] [address] VIRAnion gap [Moles/Vol]10 mmol/LNormal5-15ProLake Granbury Medical CenterComment on above: Performed By: #### CMP ####[facility] ([place] [address] [place] [address] VIRAST [Catalytic activity/Vol]14 U/LNormal<=41 [facility]-FairhillComment on above:Performed By: #### CMP ####[facility] ([facility] [place] [place] [address] VIRBilirubin [Mass/Vol]0.7 mg/dLNormal0.3-1.2PFayette County Memorial HospitalComment on above: Performed By: #### CMP ####[facility] ([address] [place] [address] VIRCalcium [Mass/Vol]8.7 mg/dLNormal8.5-10.5PFayette County Memorial HospitalComment on above:Performed By: #### CMP ####[facility] ([address] [place] [address] VIRChloride [Moles/Vol]102 mmol/YErruwo02-233RhhNgqbwuLake Granbury Medical CenterComment on above: Performed By: #### CMP ####[facility] ([address] [place] [address] VIRCO2 [Moles/Vol]25 mmol/VFcsbuu77-59YsmItirniFayette County Memorial HospitalComment on above:Performed By: #### CMP ####[address] [place] [address] VIRCreatinine [Mass/Vol]0.77 mg/dLNormal0.40-1.00ProLake Granbury Medical CenterComment on above: Result Comment: METHOD TRACEABLE TO IDMS STANDARDPerformed By: #### CMP ####[address], [place] [address] VIREGFR (CKD-EPI) NON-RACE DEPENDENT>^90Normal>=60ProLake Granbury Medical CenterComment on above:Result Comment: eGFR not reported due to non-numeric value for Creatinine. Reported eGFR is based on the CKD-EPI 2021 equation that does not use a race coefficient.Performed By: #### CMP ####[facility] ([address] [place] [address] VIRGlucose [Mass/Vol]93 mg/pBCvgdmr73-12ZwjQpycuyLake Granbury Medical CenterComment on above:Performed By: #### CMP ####[facility] ([address] [place] [address] VIRPotassium [Moles/Vol]3.8 mmol/LNormal3.5-5.0[facility] Comment on above:Performed By: #### CMP ####[facility] ([facility])[address] [place], [place] [address] [place] [address] VIRProtein [Mass/Vol]7.1 g/dLNormal 6.0-8.0[facility]-FairhillComment on above:Performed By: #### CMP ####[facility] ([address], [place] [address] VIRSodium [Moles/Vol]137 mmol/XYinkab285-303SohWgwjdiSelect Medical Specialty Hospital [facility] Comment on above:Performed By: #### CMP ####[facility] ([address] [place] [address] VIRUrea nitrogen [Mass/Vol]11 mg/dL Normal5-23ProLake Granbury Medical CenterComment on above:Performed By: #### CMP ####[facility] ([address], [place] [address] VIRD-DIMERon 11-29-2024D DIMER<^101Hyxmgl0-588HfnUghelaSelect Medical Specialty Hospital [facility] Comment on above:Result Comment: Results <255 ng/mL DDU: The presensence of a VTE can safely be excluded with a negative D-Dimer result and Wells score. A negative result doesn't exclude the possibility of DIC. The test should be repeated along with other diagnostic tests if the patient's symptoms persist or worsen.Performed By: #### DDMR ####[facility] ([address], [place] VIRMAGNESIUMon 77-39-1865Xehflawpd [Mass/Vol]1.8 mg/dLNormal1.8-2.6ProLake Granbury Medical CenterComment on above:Performed By: #### MG ####[facility] ([address] [place] [address] VIRPOCT NURSING URINE MACROSCOPIC UAon 00-41-4281MFOQUNUUF NURNegative NormalNegativeProMedica Sarpy HospitalComment on above:Performed By: #### NUM ####[facility] ([address], [place] [address] VIRBLOOD/HGB NURTraceAbnormalNegativeProMedica Sarpy HospitalComment on above:Performed By: #### NUM ####[facility] ([address] [place] [address] VIRGLUCOSE NURNegativeNormalNegativeProGenesis Hospitalca Sarpy HospitalComment on above:Performed By: #### NUM ####[facility] ([address] [place] [address] VIRKETONES SAMIA NegativeNormalNegativeProGenesis Hospitalca Sarpy HospitalComment on above:Performed By: #### NUM ####[facility] ([address] [place] [address] VIRLEUKOCYTE ESTERASE NURNegativeNormalNegativeProvidence Hospitalca Northridge Hospital Medical CenterComment on above:Performed By: #### NUM ####[facility] ([address] [place] [address] VIRNITRITE SAMIA NegativeNormalNegativeProGenesis Hospitalca Sarpy HospitalComment on above:Performed By: #### NUM ####[facility] ([address] [place] [address] VIRPH NUR7.3Ardsbo1.0, 6.0, 6.5, 7.0, 7.5, 8.0, 8.5, 5.5 [facility]-FairhillComment on above:Performed By: #### NUM ####[facility] ([address] [place] [address] VIRPROTEIN NURNegativeNormalNegativeProMedica Sarpy HospitalComment on above:Performed By: #### NUM ####[facility] ([address] [address] VIRSPECIFIC GRAVITY NUR1.613Soyfic6.010, 1.015, 1.020, 1.025ProLake Granbury Medical CenterComment on above:Performed By: #### NUM ####[facility] ([address] [address] VIRUROBILINOGEN NUR0.2 E.U./dLNormalProLake Granbury Medical CenterComment on above:Performed By: #### NUM ####[facility] ([address] [address] VIRPOCT , URINE (NUCG)on 11-29-2024 Beta HCG ( test) Ql (U)IndeterminateNormalNegative, Indeterminate [facility]FairhillComment on above:Result Comment: Repeat testing in 48 - 72 hours.Performed By: #### NUCG ####[facility] ([address] [address] VIRPREGNANCY, URINEon 74-83-0437Xngh HCG ( test) Ql (U)NegativeNormalNegativeSelect Medical Specialty [facility] Comment on above:Performed By: #### CBCA #### [facility] ([place]) [address] [place] [address] VIRPROTIME AND INRon 20-69-2963GBB2.4Xhgucv1.9-1.2PFayette County Memorial HospitalComment on above:Performed By: #### PINR ####[facility] ([address] VIRPT Coag (PPP) [Time]11.7 sNormal9.8-13.2PFayette County Memorial HospitalComment on above:Performed By: #### PINR ####[facility] ([address] VIRTROP I, HIGH SENSITIVITY 1 HOURon 53-17-4090ZZXRQLCC I, HIGH SENSITIVITY2 ng/LNormal<16ProLake Granbury Medical CenterComment on above: Performed By: #### CBCA #### [facility] ([facility]) [address] [place] [address] VIRTROPONIN I, HIGH SENSITIVITY 0 HOURon 77-27-7770DHOEFBPQ I, HIGH SENSITIVITY3 ng/LNormal<16ProLake Granbury Medical CenterComment on above: Performed By: #### CBCA #### [facility] ([facility]) [address] [place] [address] VIRCBC WITH AUTO DIFFERENTIALon 69-89-1717MMXNISKER ABSOLUTE COUNT (10*3/UL) BY AUTOMATED COUNT0.0 10*3/uLNormal0.0-0.2PFayette County Memorial HospitalComwalter [facility]. [facility] on above:Performed By: #### CBCA #### [facility] ([facility]) [address] [place] [address] VIRBASOPHILS RELATIVE PERCENT BY AUTOMATED COUNT0.5 %Normal [facility]-FairhillComwalter p. [facility] on above:Performed By: #### CBCA #### [facility] ([facility]) [address] [place] [address] VIRCELLAVISION DIFFERENTIAL TYPEAUTOMATED DIFFERENTIALNormal [facility]-FairhillComment on above:Performed By: #### CBCA #### [facility] ([facility]) [address] [place] [address] VIREosinophils (Bld) [#/Vol]0.2 10*3/uLNormal0.0-0.4[facility]-FairhillComwalter p. [facility] on above:Performed By: #### CBCA #### [facility] ([facility]) [address] [place] [address] VIREOSINOPHILS RELATIVE PERCENT BY AUTOMATED COUNT4.0 %Normal [facility] Cleveland-FairhillComment on above:Performed By: #### CBCA #### [facility] ([facility]) [address] [place] [address] VIRErythrocyte distribution width (RBC) [Ratio]14.4 %Normal 11.5-15[facility]-FairhillComment on above:Performed By: #### CBCA #### [facility] ([facility]) [address] [place] [address] VIRHematocrit (Bld) [Volume fraction]37.9 %Bcwjbh49-90NevIjmzraLake Granbury Medical CenterComment on above:Performed By: #### CBCA #### [facility] ([facility]) [address] [place] [address] VIRHemoglobin (Bld) [Mass/Vol]12.7 g/iVUmseou12.7-15.5PFayette County Memorial HospitalComment on above:Performed By: #### CBCA #### [facility] ([facility]) [address] [place] [address] VIRLYMPHOCYTES ABSOLUTE COUNT (10*3/UL) BY AUTOMATED COUNT1.4 10*3/uLNormal1.0-3.5PFayette County Memorial HospitalComment on above:Performed By: #### CBCA #### [facility] ([facility]) [address] [place] [address] VIRLYMPHOCYTES RELATIVE PERCENT BY AUTOMATED COUNT29.5 %Normal [facility]-FairhillComment on above:Performed By: #### CBCA #### [facility] ([facility]) [address] [place] [address] VIRMCH (RBC) [Entitic mass]27.2 nrIfzook27-04TzyOluagmLake Granbury Medical CenterComment on above:Performed By: #### CBCA #### [facility] ([facility]) [address] [place] [address] VIRMCHC (RBC) [Mass/Vol]33.6 g/sYGoscfa08-89HrhUmhmav Sarpy HospitalComment on above:Performed By: #### CBCA #### [facility] ([facility]) [address] [place] [address] VIRMCV (RBC) [Entitic vol]81 xVOnzsmf29-539YlbLyzayj Fremont HospitalComment on above:Performed By: #### CBCA #### [facility] ([facility]) [address] [place] [address] VIRMONOCYTES ABSOLUTE COUNT (10*3/UL) BY AUTOMATED COUNT0.4 10*3/uLNormal0.0-0.9[facility]hillComwalter [facility] on above:Performed By: #### CBCA #### [facility] ([facility]) [address] [place] [address] VIRMONOCYTES RELATIVE PERCENT BY AUTOMATED COUNT7.7 %Normal [facility]FairhillComwalter [facility] on above:Performed By: #### CBCA #### [facility] ([facility]) [address] [place] [address] VIRNEUTROPHILS ABSOLUTE COUNT BY AUTOMATED COUNT2.7 10*3/uL Normal1.5-6.6[facility]FairhillComwalter p. [facility] on above:Performed By: #### CBCA #### [facility] ([facility]) [address] [place] [address] VIRNEUTROPHILS RELATIVE PERCENT BY AUTOMATED COUNT58.3 %Normal [facility] Cleveland-FairhillComment on above:Performed By: #### CBCA #### [facility] ([facility]) [address] [place] [address] VIRPlatelet mean volume (Bld) [Entitic vol]9.1 fLNormal7-12 [facility]-FairhillComment on above:Performed By: #### CBCA #### [facility] ([facility]) [address] [place] [address] VIRPlatelets (Bld) [#/Vol]226 10*3/hUIuaets541-004LdcMnyppe Fremont HospitalComment on above:Performed By: #### CBCA #### [facility] ([facility]) [address] [place] [address] VIRRBC COUNT4.68 X10E12/LNormal3.8-5.2PFayette County Memorial HospitalComment on above:Performed By: #### CBCA #### [facility] ([facility]) [address] [place] [address] VIRWBC (Bld) [#/Vol]4.7 10*3/uLNormal4-11ProLake Granbury Medical CenterComment on above:Performed By: #### CBCA #### [facility] ([facility]) [address] [place] [address] VIRCOMPREHENSIVE METABOLIC PANELon 13-32-5643Tpietrs [Mass/Vol] 4.3 g/dLNormal3.2-5.3PFayette County Memorial HospitalComment on above:Performed By: #### CMP #### [facility] ([facility]) [address] [place] [address] VIRALP [Catalytic activity/Vol]65 U/UKsbhyc60-859BnuCzmzluLake Granbury Medical CenterComment on above:Performed By: #### CMP #### [facility] ([facility]) [address] [place] [address] VIRALT [Catalytic activity/Vol]18 U/LNormal<=31PFayette County Memorial HospitalComment on above:Performed By: #### CMP #### [facility] ([facility]) [address] [place] [address] VIRAnion gap [Moles/Vol]8 mmol/LNormal5-15ProLake Granbury Medical CenterComment on above:Performed By: #### CMP #### [facility] ([facility]) [address] [place] [address] VIRAST [Catalytic activity/Vol]13 U/LNormal<=41ProLake Granbury Medical CenterComment on above:Performed By: #### CMP #### [facility] ([facility]) [address] [place] [address] VIRBilirubin [Mass/Vol]0.5 mg/dLNormal0.3-1.2PFayette County Memorial HospitalComment on above:Performed By: #### CMP #### [facility] ([facility]) [address] [place] [address] VIRCalcium [Mass/Vol]8.9 mg/dLNormal8.5-10.5PFayette County Memorial HospitalComment on above:Performed By: #### CMP #### [facility] ([facility]) [address] [place] [address] VIRChloride [Moles/Vol]106 mmol/FZwdquq59-002RmoGhhwaqLake Granbury Medical CenterComment on above:Performed By: #### CMP #### [facility] ([facility]) [address] [place] [address] VIRCO2 [Moles/Vol]27 mmol/PKwjavi08-73DflZjhxyeFayette County Memorial HospitalComment on above:Performed By: #### CMP #### [facility] ([facility]) [address] [place] [address] VIRCreatinine [Mass/Vol]0.67 mg/dLNormal0.40-1.00ProLake Granbury Medical CenterComment on above:Result Comment: METHOD TRACEABLE TO IDTN STANDARDPerformed By: #### CMP #### [facility] ([facility]) [address] [place] [address] VIREGFR (CKD-EPI) NON-RACE DEPENDENT>^90Normal>=60ProLake Granbury Medical CenterComment on above:Result Comment: Reported eGFR is based on the CKD-EPI 2021 equation that does not use a race coefficient. EGFR not calculated due to patient's gender not being defined.Performed By: #### CMP #### [facility] ([facility]) [address] [place] [address] VIRGlucose [Mass/Vol]91 mg/iSGuptbr84-80VusCeqrjzLake Granbury Medical CenterComment on above:Performed By: #### CMP #### [facility] ([facility]) [address] [place] [address] VIRPotassium [Moles/Vol]3.9 mmol/LNormal3.5-5.0[facility]-FairhillComment on above:Performed By: #### CMP #### [facility] ([facility]) [address] [place] [address] VIRProtein [Mass/Vol]6.8 g/dLNormal6.0-8.0[facility]-FairhillComment on above:Performed By: #### CMP #### [facility] ([facility]) [address] [place] [address] VIRSodium [Moles/Vol]141 mmol/EBfxsip134-088GeaUbjlfu [facility] HospitalComment on above:Performed By: #### CMP #### [facility] ([facility]) [address] [place] [address] VIRUrea nitrogen [Mass/Vol]10 mg/dLNormal5-23ProLake Granbury Medical CenterComment on above:Performed By: #### CMP #### [facility] ([facility]) [address] [place] [address] VIRIRON AND TIBCon [id number] [Mass/Vol]42 ug/yBWpf12-978 [facility]-FairhillComment on above:Performed By: #### FEPR #### [facility] ([facility]) [address] [place] [address] VIRIRON IZOYWIS139 ug/gFVwhhxy794-668CqcFpnfat [facility] Comment on above:Performed By: #### FEPR #### [facility] ([facility]) [address] [place] [address] VIRIRON YSRMBAVEWF92 % IEAWHQKHOAQoq99-64RidWbgnin [place] HospitalComment on above:Performed By: #### FEPR #### [facility] ([facility]) [address] [place] [address] VIRTransferrin [Mass/Vol]226 mg/qWHvyzqa428-536RynNdsorj [facility] HospitalComment on above:Performed By: #### FEPR #### [facility] ([facility]) [address] [place] [address] VIRLIPID PROFILEon 81-61-8110Wfjgaffgfnl [Mass/Vol]169 mg/dL Agtddz817-560NmvNegjnlSelect Medical Specialty Hospital - Cleveland-FairhillComment on above:Performed By: #### LIPR #### [facility] ([facility]) [address] [place] [address] VIRCholesterol in HDL [Mass/Vol]51 mg/dLNormal>39ProLake Granbury Medical CenterComment on above:Result Comment: HDL <40 mg/dL - High Risk HDL > or = 40mg/dL- Desirable HDL >60 mg/dL - Negative RiskPerformed By: #### LIPR #### [facility] ([facility]) [address] [place] [address] VIRCholesterol in LDL [Mass/Vol]105 mg/dLNormal<130Select [facility] - Cleveland-FairhillComment on above:Result Comment: LDL <100 mg/dL - Desirable LDL >160 mg/dL - High RiskPerformed By: #### LIPR #### [facility] ([facility]) [address] [place] [address] VIRCHOLESTEROL:HDL3.8Nciypp1.0-5.0[facility] Comment on above:Performed By: #### LIPR #### [facility] ([facility]) [address] [place] [address] VIRTriglyceride [Mass/Vol]65 mg/lUEtlfpb49-727DodHqwpvu [facility] HospitalComment on above:Performed By: #### LIPR #### [facility] ([facility]) [address] [place] [address] VIRVERY LOW IBQVHLYXGGL53 mg/dLNormal0-30ProLake Granbury Medical CenterComment on above:Performed By: #### LIPR #### [facility] ([facility]) [address] [place] [address] VIRT4, FREEon 40-28-3722Ytbr T4 [Mass/Vol]0.86 ng/dLNormal 0.61-1.60ProLake Granbury Medical CenterComment on above:Performed By: #### FT4 #### [facility] ([facility]) [address] [place] [address] VIRTSH WITH REFLEXon 19-91-6548KOZ1.48 uIU/mLLow0.49-4.67 [facility] CenterComment on above:Performed By: #### TSHR #### [facility] ([facility]) [address] [place] [address] VIRVITAMIN B12on 34-16-4904Rojpqjlgs (Vitamin B12) [Mass/Vol] 743 pg/yPVybfba589-423DawZdxush [facility]ont HospitalComment on above:Performed By: #### B12 #### [facility] ([facility]) [address] [place] [address] VIRVITAMIN D 25 HYDROXYon 30-57-7156QWVXVGE D 25 HYD TOT21.4 ng/mLLow30.0-100.0Select [facility] - Cleveland-FairhillComment on above:Order Comment: Vitamin D status 25 [place] Vitamin D Deficiency <20 ng/mL Insufficiency 20-29 ng/mL Sufficiency 30-100 ng/mL Toxicity >100 ng/mL NOTE: A pediatric reference range has not been established by the cage maker of this kit. The [place] [employer] recommends a Vitamin D level of = or >20ng/mL in infants and children.Performed By: #### VITD #### [facility] ([facility]) [address] [place] [address] VIRXR KNEE LT MIN 4 VWSon [id number] KNEE LT MIN 4 VWSXR KNEE LT MIN 4 VWS XR KNEE LT MIN 4 VWS History: Acute pain of left knee Findings: No fracture or destructive lesion Impression: No acute findings. Consider MRI if you suspect occult process. Finalized by Luis Valle MD on 09/27/2024 2:[address] [facility] [address] ABDOMEN AND PELVIS WO CONTon [id number] ABDOMEN AND PELVIS WO CONTCT ABDOMEN AND PELVIS WO CONT CLINICAL INFORMATION: Right lower quadrant abdominal pain; Epigastric pain. TECHNIQUE: CT Abdomen and Pelvis without intravenous contrast. All CT scans at this facility use dose modulation, iterative reconstruction, and/or weight based dosing when appropriate to reduce radiation dose to as low as reasonably achievable. COMPARISON: CT abdomen pelvis 04/03/2013 FINDINGS: Benign calcified right lower lobe granuloma. The liver, spleen, gallbladder, adrenal glands, and pancreas are unremarkable. No evidence of biliary dilatation. No renal collecting system dilatation or stones. Bladder is decompressed limiting evaluation. Retroflexed uterus. No bowel obstruction or inflammatory changes. Normal colonic stool burden. Normal appendix. Stomachis unremarkable. No small bowel distention. No free fluid or free air. The abdominal aorta is normal in course and caliber. No enlarged lymph nodes identified. Mild degenerative changes in the spine. Vertebral body heights are maintained. No aggressive osseous lesions identified. Small fat-containing umbilical hernia. IMPRESSION: * No acute process in the abdomen or pelvis. Finalized by Adi Chavarria MD on 09/20/2024 11:26 [facility], Xpress CoV-2, FLU, RSV Plus (Cepheid)on 04-25-2024 External Poct Influenza A CepheidNegativeNegativeProOhiohealth Nelsonville Health Center SystemExternal Poct Influenza B CepheidNegativeNegativeProOhiohealth Nelsonville Health Center SystemExternal Poct Rsv CepheidNegativeNegativeSelect Medical [facility] SystemInterpretation and review of laboratory resultsNormalProChildren's Hospital of ColumbusARS-CoV-2 (COVID-19) RNA RIKI+probe Ql (Unsp spec)NegativeNegativeProMedica [facility] Clinic [facility] SystemProOhiohealth Nelsonville Health Center SystemIGP,APTIMA HPV,AGE GDLNon 71-25-8775CHC GDLN ACOG TESTINGNote.NOMS HealthcareComment on above:TESTS RESULT FLAG UNITS REF RANGE LAB Clinician Provided Cytology Information Source.............Cervix;Endocervix No. of containers..01 ThinPrep Vial Age Aarti CHAO Shantel... FLAG LEGEND: L-Low Normal,H-High Normal,LL-Alert Low,HH-Alert High <-Panic Low,>-Panic High,A-Abnormal,AA-Critical Abnormal Performed at: 01 =[address] [place] [address] Susi Jimenez MD, HPV APTIMANegativeNegativeNOMS HealthcareComment on above:This nucleic acid amplification test detects fourteen high- risk HPV types (16,18,31,33,35,39,45,51,52,56,58,59,66,68) without differentiation. Performed at: =[address] [id number] Labor Arbitrator: Susi Jimenez MD, Phone: [phone] Performed at: WB - [facility] [address], [place] [id number] Labor Arbitrator: Susi Jimenez MD, Phone: [phone] IGP, APTIMA HPV, RFX 16/18,45Note.NOMS [facility] Cleveland EastComment on above:TESTS RESULT FLAG UNITS REF RANGE LAB DIAGNOSIS: 02 NEGATIVE FOR INTRAEPITHELIAL LESION OR MALIGNANCY. Specimen adequacy: 02 Satisfactory for evaluation. Endocervical and/or squamous metaplastic cells (endocervical component) are present. Performed by: Valentino Grimes Location And Measurement Technician ([facility]) . 02 Note: Note 02 The Pap smear is a screening test designed to aid in the detection of premalignant and malignant conditions of the uterine cervix. It is not a diagnostic procedure and should not be used as the sole means of detecting cervical cancer. Both false-positive and false-negative reports do occur. Test Methodology: Note 02 This liquid based ThinPrep(R) pap test was screened with the use of an image guided system. HPV Genotype Reflex Note 02 Criteria not met, HPV Genotype not performed. FLAG LEGEND: L-Low Normal,H-High Normal,LL-Alert Low,HH-Alert High <-Panic Low,>-Panic High,A-Abnormal,AA-Critical Abnormal Performed at: 02 WB [facility] [address] [place] [address] Susi Jimenez MD, BRUSH-SPATULA CERVIX ENDOCERVIX CLINISYNCNOMS [facility] AUTO DIFFon [id number] #0.0 103/ulNormal0.0-0.1 The [facility] Bing, MD, Cancer Centerment on above:Performed By: #### CBC #### [facility] [address] [place] [address] Dr. Kavitha WillisBasophils/100 WBC (Bld)0.2 %Normal0.2-2.0The [facility] Comment on above:Performed By: #### CBC #### [facility] [address] [place] [address] Dr. Kavitha Kamara #0.0 103/ulNormal0.0-0.7The [facility] HospitalComment on above: Performed By: #### CBC #### [facility] [address] [place] [address] Dr. Kavitha Dorseyosinophils/100 WBC (Bld)0.1 %Critically low0.9-7.0The [facility].H. Bing, MD, Cancer Centerment on above:Performed By: #### CBC #### [facility] [address] [place] [address] Dr. Kavitha Dorseyrythrocyte distribution width (RBC) [Ratio]14.5 %Qwtuzf59.0-15.0 [facility] Ohioment on above:Performed By: #### CBC #### [facility] [address] [place] [address] Dr. Kavitha WillisHematocrit (Bld) [Volume fraction]27.0 %Critically low36.0-48.0 [facility] Ohioment on above:Performed By: #### CBC #### [facility] [address] [place] [address] Dr. Kavitha WillisHemoglobin (Bld) [Mass/Vol]9.0 g/dLCritically low12.0-16.0The [facility] on above:Performed By: #### CBC #### [facility] [address] [place] [address] Dr. Kavitha Gutierrez #0.03 10e3/ulNormal0.00-0.03The [facility]udy HospitalComment on above:Performed By: #### CBC #### [facility] [address] [address] [address] Kavitha Gutierrez %0.3 %Normal0.0-0.5The [facility] HospitalComment on above: Performed By: #### CBC #### [facility] [address] [address] [address] Kavitha Negron #0.8 103/ulCritically low1.2-3.8The [facility] Comment on above:Performed By: #### CBC #### [facility] [address] [address] [address] Kavitha Cavazoshocytes/100 WBC (Bld)7.0 %Critically low20.5-60.0The [facility] HospitalComment on above:Performed By: #### CBC #### [facility] [address] [place] [address] Dr. Kavitha AlcocerUAL DIFF REQNONormalThe [facility] HospitalComment on above: Performed By: #### CBC #### [facility] [address] [address] [address] Kavitha Hines (RBC) [Entitic mass]29.1 tzOnctoa78.7-34.0The [facility] HospitalComment on above:Performed By: #### CBC #### [facility] [address] [place] [address] Dr. Kavitha Hines (RBC) [Mass/Vol]33.3 g/jOWwmzlf22.9-35.2The [facility] HospitalComment on above:Performed By: #### CBC #### [facility] [address] [place] [address] Dr. Kavitha Hines (RBC) [Entitic vol]87.4 cSTschlj90.0-99.0The [facility] HospitalComment on above:Performed By: #### CBC #### [facility] [address] [place] [address] Dr. Kavitha Lobo #0.6 103/ulNormal0.3-0.8The [facility] HospitalComment on above:Performed By: #### CBC #### [facility] [address] [address] [address] Kavitha Rochaocytes/100 WBC (Bld)5.1 %Normal1.7-12.0[facility] Comment on above:Performed By: #### CBC #### [facility] [address] [place] [address] Dr. Kavitha Hills #10.3 103/ulCritically high1.4-6.5The [facility] Comment on above:Performed By: #### CBC #### [facility] [address] [place] [address] Dr. Kavitha Jayutrophils/100 WBC (Bld)87.3 %Critically high43.0-75.0The [facility] HospitalComment on above:Performed By: #### CBC #### [facility] [address] [place] [address] Dr. Kavitha Cooklet mean volume (Bld) [Entitic vol]10.9 fLNormal9.5-13.5The [facility] HospitalComment on above:Performed By: #### CBC #### [facility] [address] [place] [address] Dr. Kavitha WillisPLT118 103/ulCritically khy006-373Fgt [facility] HospitalComment on above:Result Comment: A rare platelet clump seen which may falsely decrease the platelet count. Notify lab if redraw and repeat platelet count required.Performed By: #### CBC #### [facility] [address] [place] [address] Dr. Kavitha WillisRBC3.09 106/ulCritically low4.20-5.40The [facility] HospitalComment on above:Performed By: #### CBC #### [facility] [address] [place] [address] Dr. Kavitha WillisWBC11.8 103/ulCritically high4.0-11.0The [facility] HospitalComment on above:Performed By: #### CBC #### [facility] [address] [place] [address] Dr. Kavitha Romero AUTO DIFFon [id number] #0.0 103/ulNormal0.0-0.1The [facility] HospitalComment on above:Performed By: #### CBC #### [facility] [address] [address] [address] Kavitha WillisBasophils/100 WBC (Bld)0.3 %Normal0.2-2.0The [facility] Comment on above:Performed By: #### CBC #### [facility] [address] [place] [address] Dr. Kavitha Kamara #0.1 103/ulNormal0.0-0.7The [facility] HospitalComment on above: Performed By: #### CBC #### [facility] [address] [place] [address] Dr. Kavitha Dorseyosinophils/100 WBC (Bld)0.7 %Critically low0.9-7.0The [facility] HospitalComment on above:Performed By: #### CBC #### [facility] [address] [place] [address] Dr. Kavitha Dorseyrythrocyte distribution width (RBC) [Ratio]14.3 %Dwlqvp90.0-15.0 [facility] HospitalComment on above:Performed By: #### CBC #### [facility] [address] [place] [address] Dr. Kavitha WillisHematocrit (Bld) [Volume fraction]34.4 %Critically low36.0-48.0 The [facility] HospitalComment on above:Performed By: #### CBC #### [facility] [address] [place] [address] Dr. Kavitha WillisHemoglobin (Bld) [Mass/Vol]11.3 g/dLCritically low12.0-16.0The [facility] HospitalComment on above:Performed By: #### CBC #### [facility] [address] [place] [address] Dr. Kavitha Gutierrez #0.05 10e3/ulCritically high0.00-0.03The [facility] Comment on above:Performed By: #### CBC #### [facility] [address] [address] [address] Kavitha Gutierrez %0.7 %Critically high0.0-0.5The [facility] HospitalComment on above:Performed By: #### CBC #### [facility] [address] [address] [address] Kavitha Negron #1.8 103/ulNormal1.2-3.8The [facility] HospitalComment on above:Performed By: #### CBC #### [facility] [address] [address] [address] Kavitha Cavazoshocytes/100 WBC (Bld)22.9 %Hcqelq39.5-60.0The [facility] HospitalComment on above:Performed By: #### CBC #### [facility] [address] [place] [address] Dr. Kavitha AlcocerUAL DIFF REQNONormalThe [facility] HospitalComment on above: Performed By: #### CBC #### [facility] [address] [place] [address] Dr. Kavitha Hines (RBC) [Entitic mass]28.4 sgWtexyl58.7-34.0The [facility] HospitalComment on above:Performed By: #### CBC #### [facility] [address] [place] [address] Dr. Kavitha Hines (RBC) [Mass/Vol]32.8 g/zREruosc06.9-35.2The [facility] HospitalComment on above:Performed By: #### CBC #### [facility] [address] [place] [address] Dr. Kavitha Hines (RBC) [Entitic vol]86.4 kJZdwptn96.0-99.0The [facility] HospitalComment on above:Performed By: #### CBC #### [facility] [address] [place] [address] Dr. Kavitha Lobo #0.6 103/ulNormal0.3-0.8The [facility] HospitalComment on above:Performed By: #### CBC #### [facility] [address] [address] [address] Kavitha Rochaocytes/100 WBC (Bld)7.3 %Normal1.7-12.0The [facility] on above:Performed By: #### CBC #### [facility] [address] [place] [address] Dr. Kavitha JayUT #5.2 103/ulNormal1.4-6.5The [facility] HospitalComment on above:Performed By: #### CBC #### [facility] [address] [place] [address] Dr. Kavitha Jayutrophils/100 WBC (Bld)68.1 %Ifkhrq03.0-75.0The [facility] HospitalComment on above:Performed By: #### CBC #### [facility] [address] [place] [address] Dr. Kavitha WillisPlatelet mean volume (Bld) [Entitic vol]11.8 fLNormal9.5-13.5The [facility] HospitalComment on above:Performed By: #### CBC #### [facility] [address] [place] [address] Dr. Kavitha WillisPLT160 103/ylVorjdt697-107Mjs [facility], Cancer Centerment on above: Performed By: #### CBC #### [facility] [address] [place] [address] Dr. Kavitha WillisRBC3.98 106/ulCritically low4.20-5.40The [facility], Cancer Centerment on above:Performed By: #### CBC #### [facility] [address] [place] [address] Dr. Kavitha WillisWBC7.6 103/ulNormal4.0-11.0The [facility] on above: Performed By: #### CBC #### [facility] [address] [place] [address] Dr. Kavitha Christiansonvid-19 PCR (CVDTB)on 12-89-6825NDCH-CoV-2 (COVID-19) RNA RIKI+probe Ql (Unsp spec)Not detectedNormalNOT DETECTEDOhiohealth Berger Hospital Comment on above:Result Comment: When diagnostic testing is negative, the possibility of a false negative should be considered in the context of a patient's recent exposures and the presence of clinical signs and symptoms consistent with SARS-CoV-2. This test is not yet approved or cleared by the [place] FDA. When there are no FDA-approved or cleared tests available, and other criteria are met, FDA can make tests available under an emergency access mechanism called an Emergency Use Authorization (EUA). The EUA for this test is supported by the [place] of Health and Human Service's declaration that circumstances exist to justify the emergency use of in vitro diagnostics for the detection and/or diagnosis of the virus that causes COVID-19. This EUA will remain in effect for the duration of the COVID-19 declaration justifying emergency of IVDs, unless it is terminated or revoked by the FDA (after which the test may no longer be used).Performed By: #### DRUGRPD #### [facility] [address] [place] [address] Dr. Kavitha WillisDRUG SCREEN RAPID (URINE)on 60-72-9772LDIOapcqoduRxdrizZSPRHVHP [facility] on above:Performed By: #### DRUGRPD #### [facility] [address] [place] [address] Dr. Kavitha WillisBARNegativeNormalNEGATIVEOhiohealth Berger HospitalComment on above: Performed By: #### DRUGRPD #### [facility] [address] [place] [address] Dr. Kavitha WillisBUPNegativeNormalNEGATIVEOhiohealth Berger HospitalComment on above: Performed By: #### DRUGRPD #### [facility] [address] [place] [address] Dr. Kavitha WillisBZONegativeNormalNEGATIVEOhiohealth Berger HospitalComwalter p. [facility] on above: Performed By: #### DRUGRPD #### [facility] [address] [place] [address] Dr. Kavitha WillisCOCNegativeNormalNEGATIVEOhiohealth Berger HospitalComment on above: Performed By: #### DRUGRPD #### [facility] [address] [place] [address] Dr. Kavitha TeeHolzer Medical Center – JacksonComwalter p. [facility] hospital on above: Result Comment: AMP (Amphetamine): 500ng/mL, BAR (Barbituates): 200 ng/mL, BZO (Benzodiazepines): 150 ng/mL, BUP (Buprenorphine): 10 ng/mL, FABIÁN (Cocaine): 150 ng/mL, mAMP (Methamphetamine): 500 ng/mL, MTD (Methadone): 200 ng/mL, OPI (Opiates): 100 ng/mL, OXY (Oxycodone): 100 ng/mL, PCP (Phencyclidine): 25 ng/mL, PPX (Propoxyphene): 300 ng/mL, THC (Cannabinoids): 50 ng/mL, TCA (Trycyclic Antidepressants): 300 ng/mLPerformed By: #### DRUGRPD #### [facility] [address] [place] [address] Dr. Kavitha WillisDRUG CUT HEADERDRUG CLASS TEST SYSTEM CUT-OFF CONCENTRATIONS ARE FOLLOWS:NormalOhiohealth Berger HospitalComwalter p. reuther psychiatric hospital on above:Performed By: #### DRUGRPD #### [facility] [address] [place] [address] Dr. Kavitha WillismAMPNegativeNormalNEGATIVESt. Charles Hospital on above: Performed By: #### DRUGRPD #### [facility] [address] [place] [address] Dr. Kavitha WillisMTDNegativeNormalNEGATIVEOhiohealth Berger HospitalComwalter p[facility] on above: Performed By: #### DRUGRPD #### [facility] [address] [place] [address] Dr. Kavitha SwiftINegativeNormalNEGATIVEOhiohealth Berger HospitalComwalter p. [facility] on above: Performed By: #### DRUGRPD #### [facility] [address] [place] [address] Dr. Kavitha WillisOXYNegativeNormalNEGATIVEOhiohealth Berger HospitalComwalter p[facility] on above: Performed By: #### DRUGRPD #### [facility] [address] [address] [address] Kavitha WillisPCPNegativeNormalNEGATIVEOhiohealth Berger HospitalComment on above: Performed By: #### DRUGRPD #### [facility] [address] [address] [address] Kavitha WillisPPXNegativeNormalNEGATIVEOhiohealth Berger HospitalComment on above: Performed By: #### DRUGRPD #### [facility] [address] [place] [address] Dr. Kavitha WillisTCANegativeNormalNEGATIVEOhiohealth Berger HospitalComment on above: Performed By: #### DRUGRPD #### [facility] [address] [place] [address] Dr. Kavitha WillisTHCNegativeNormalNEGATIVEOhiohealth Berger HospitalComment on above: Performed By: #### DRUGRPD #### [facility] [address] [place] [address] Dr. Kavitha Colón AND SCREENon 55-89-1186EQFM AND SCREENNegativeNormalThe [facility] HospitalComment on above:Performed By: #### DRUGRPD #### [facility] [address] [place] [address] Dr. Kavitha Lowery (CLEAN/CATCH) ORNAMENTAL IRONWORKER/MICRO IF IND.on 13-18-3414Oqkydhkzb Ql (U) NegativeNormalNEGATIVEOhiohealth Berger HospitalComment on above:Performed By: #### UACSIND #### [facility] [address] [place] [address] Dr. Kavitha Montielarity (U)CLEARNormalCLEAROhiohealth Berger HospitalComment on above: Performed By: #### UACSIND #### [facility] [address] [address] [address] Kavitha Rader (U)LT. YELLOWNormalYELLOWOhiohealth Berger HospitalComment on above:Performed By: #### UACSIND #### [facility] [address] [place] [address] Dr. Kavitha WillisGlucose Ql (U)NegativeNormalNEGChillicothe HospitalComment on above:Performed By: #### UACSIND #### [facility] [address] [address] [address] Kavitha WillisHemoglobin Ql (U)NegativeNormalNEGChillicothe Hospital Comment on above:Performed By: #### UACSIND #### [facility] [address] [address] [address] Kavitha WillisKetones Ql (U)NegativeNormalNEGATIVEThe [facility] City HospitalComment on above:Performed By: #### UACSIND #### [facility] [address] [address] [address] Kavitha WillisLEUKOCYTESNegativeNormalNEGATIVEOhiohealth Berger HospitalComment on above:Performed By: #### UACSIND #### [facility] [address] [place] [address] Dr. Kavitha WillisNitrite Ql (U)NegativeNormalNEGATIVEOhiohealth Berger HospitalComment on above:Performed By: #### UACSIND #### [facility] [address] [place] [address] Dr. Kavitha WillispH (U)6.0 [pH]Normal5-9The [facility] HospitalComment on above: Performed By: #### UACSIND #### [facility] [address] [place] [address] Dr. Kavitha WillisSPEC GRAVITY1.161Rdzswn6.005-<=1.025The [facility] HospitalComment on above:Performed By: #### UACSIND #### [facility] [address] [place] [address] Dr. Kavitha Lowery PROTEINNegativeNormalNEGATIVE/ TRACEThe [facility] Comment on above:Performed By: #### UACSIND #### [facility] [address] [place] [address] Dr. Kavitha Lozada MICRO INDNOT INDICATEDNoDoctors HospitalComment on above:Performed By: #### UACSIND #### [facility] [address] [place] [address] Dr. Kavitha Sebastianinogen Qn (U)0.2 {Erica'U}/dLNormal0.2 - 1.0The [facility] HospitalComment on above:Performed By: #### UACSIND #### [facility] [address] [place] [address] Dr. Kavitha Stout B STREP CULTUREon 01-23-2022. agalactiae Ag Ql (Unsp spec) Culture Observations: NEGATIVE FOR GROUP B STREPTOCOCCUS.NormalThe [facility] HospitalComment on above: Performed By: #### DRUGRPD #### [facility] [address] [place] [address] Dr. Kavitha Sherman PREG GROWTHon [id number] PREG GROWTHEXAMINATION: US PREG GROWTH HISTORY: Large for gestation age fetus COMPARISON: Ultrasound anatomy 09/16/2021, 10/23/2021 FINDINGS: Heart Rate: 149.0 bpm Number: 1.0 Position: CEPHALIC Amniotic Fluid Volume: 11.5 cm Maximum Vertical Pocket: 3.9 cm BIOMETRY: BPD: 8.2 cm cm; 32 weeks 6 days; 76% HC: 29.8 cmcm; 33 weeks 0 days; 47% AC: 28.2 cm cm; 32 weeks 2 days; 64% FL: 6.7 cm cm; 34 weeks 3 days; 94% EFW: 2103.9 grams; 81% FL/AC: 23.8 FL/BPD: 81.8 HC/AC: 1.1 GESTATIONAL AGE: Age by EDC: 31 weeks 5 days MULUGETA by EDC: 02/13/2022 Age by US: 33 weeks, 1 day MULUGETA by US: 02/03/2022 IMPRESSION: 1. Single live intrauterine with growth detailed above. Electronically authenticated by: RAMIN ALVAREZ Date: 2021-12-17 16:25[facility] ACOG PANEL 2: 30 to 65on 11-27-2021..NormalOhiohealth Berger HospitalComment on above:Result Comment: Performed at: WBPerformed By: #### COXSIGM #### [facility] [address] [place] [address] Dr. Kavitha Ramos Gdln ACOG Bpmjqag71-68PjaguqCfwDoctors HospitalComment on above:Performed By: #### COXSIGM #### [facility] [address] [place] [address] Dr. Kavitha WillisDIAGNOSIS:CommentSelect Medical [facility] on above: Result Comment: NEGATIVE FOR INTRAEPITHELIAL LESION OR MALIGNANCY. Performed at: WBPerformed By: #### COXSIGM #### [facility] [address] [place] [address] Dr. Kavitha WillisHPV AptimaNegativeNormalNegativeThe [facility] on above:Result Comment: This nucleic acid amplification test detects fourteen high-risk HPV types (16,18,31,33,35,39,45,51,52,56,58,59,66,68) without differentiation. Performed at: =GPerformed By: #### COXSIGM #### [facility] [address] [place] [address] Dr. Kavitha WillisMethodology:CommentSelect Medical [facility] on above: Result Comment: This liquid based ThinPrep(R) pap test was screened with the use of an image guided system. Performed at: WBPerformed By: #### COXSIGM #### [facility] [address] [place] [address] Dr. Kavitha WillisNote:CommentSelect Medical [facility] on above:Result Comment: The Pap smear is a screening test designed to aid in the detection of premalignant and malignant conditions of the uterine cervix. It is not a diagnostic procedure and should not be used as the sole means of detecting cervical cancer. Both false-positive and false-negative reports do occur. . Performed at: WBPerformed By: #### COXSIGM #### [facility] [address] [place] [address] Dr. Kavitha WillisPerformed by:CommentSelect Medical [facility] on above: Result Comment: Linda Isidro, Location And Measurement Technician (ASCP) Performed at: WBPerformed By: #### COXSIGM #### [facility] [address] [place] [address] Dr. Kavitha WillisSpecimen adequacy:CommentMagruder HospitalComwalter p. reuther psychiatric hospital on above:Result Comment: Satisfactory for evaluation. Endocervical and/or squamous metaplastic cells (endocervical component) are present. Performed at: WBPerformed By: #### COXSIGM #### [facility] [address] [place] [address] Dr. Kavitha WillisCHLAMYDIA/GONOCOCCUS RIKI (SWAB/URINE/PAPon [id number] trachomatis, NAANegativeNormalNegativeOhiohealth Berger HospitalComment on above: Performed By: #### CT/NGNA #### [facility] [address] [place] [address] Dr. Kavitha WillisNeisseria gonorrhoeae, NAANegativeNormalNegativeOhiohealth Berger HospitalComwalter p. reuther psychiatric hospital on above:Performed By: #### CT/NGNA #### [facility] [address] [place] [address] Dr. Kavitha WillisVAGINITIS/VAGINOSIS DNA PROBEon 11-21-6170Bbkiqsb speciesNegative NormalNegativeOhiohealth Berger HospitalComwalter p. reuther psychiatric hospital on above:Performed By: #### VAGINT #### [facility] [address] [place] [address] Dr. Kavitha WillisGardnerella vaginalisNegativeSanteeNegCleveland Clinic Mercy Hospital Comment on above:Performed By: #### VAGINT #### [facility] [address] [place] [address] Dr. Kavitha WillisTrichomonas vaginalisNegativeSanteeNegCleveland Clinic Mercy Hospital Comment on above:Performed By: #### VAGINT #### [facility] [address] [place] [address] Dr. Kavitha WillisGTT 3 HR PREGon 91-18-6093Exisyup [Mass/Vol]82 mg/lQGzrtva32-373 Ohio[facility] Berger HospitalComwalter p. reuther psychiatric hospital on above:Performed By: #### GTT3P #### [facility] [address] [place] [address] Dr. Kavitha WillisGlucose [Mass/Vol]158 mg/dLNoDoctors HospitalComwalter p. reuther psychiatric hospital on above:Performed By: #### GTT3P #### [facility] [address] [place] [address] Dr. Kavitha WillisGlucose [Mass/Vol]130 mg/dLNoDoctors HospitalComment on above:Performed By: #### GTT3P #### [facility] [address] [place] [address] Dr. Kavitha WillisGlucose [Mass/Vol]118 mg/dLNormSalem Regional Medical CenterComment on above:Performed By: #### GTT3P #### [facility] [address] [place] [address] Dr. Kavitha WillisGLUCOSE - 1HRon 30-47-3565Fdnqjdt [Mass/Vol]155 mg/dLCritically uevo50-562Apf [facility] HospitalComment on above:Performed By: #### GLU1HR #### [facility] [address] [place] [address] Dr. Kavitha WillisHEMOGRAM AND PLATELon 75-87-6568Wyyuzevjui (Bld) [Volume fraction]31.7 %Critically low36.0-48.0The [facility] HospitalComment on above: Performed By: #### DRUGRPD #### [facility] [address] [place] [address] Dr. Kavitha WillisHemoglobin (Bld) [Mass/Vol]10.6 g/dLCritically low12.0-16.0The [facility] HospitalComment on above:Performed By: #### DRUGRPD #### [facility] [address] [place] [address] Dr. Kavitha HinesH (RBC) [Entitic mass]29.2 tmOpfugr72.7-34.0The [facility] HospitalComment on above:Performed By: #### DRUGRPD #### [facility] [address] [place] [address] Dr. Kavitha Hines (RBC) [Mass/Vol]33.4 g/nVTbbktm71.9-35.2The [facility] HospitalComment on above:Performed By: #### DRUGRPD #### [facility] [address] [place], [place] [address] Dr. Kavitha WillisMCV (RBC) [Entitic vol]87.3 iYMytaic18.0-99.0The [facility] HospitalComment on above:Performed By: #### DRUGRPD #### [facility] [address] [address] [address] Kavitha WillisPLT154 103/mdJkbcjc252-864Vdr [facility] HospitalComment on above: Performed By: #### DRUGRPD #### [facility] [address] [address] [address] Kavitha WillisRBC3.63 106/ulCritically low4.20-5.40The [facility] HospitalComment on above:Performed By: #### DRUGRPD #### [facility] [address] [place] [address] Dr. Kavitha WillisWBC6.3 103/ulNormal4.0-11.0The [facility] HospitalComment on above: Performed By: #### DRUGRPD #### [facility] [address] [place] [address] Dr. Kavitha Sherman PREG INCOMPLETE ANATOMYon [id number] PREG INCOMPLETE ANATOMY EXAMINATION: US PREG INCOMPLETE ANATOMY HISTORY: screening COMPARISON: Ultrasound anatomy 09/16/2021 FINDINGS: Presentation: Cephalic Heart rate: 147 bpm Anatomy: Right ventricle outflow tract, left ventricle outflow tract, diaphragm IMPRESSION: 1. Single live intrauterine . 2. Adequate visualization of cardiac outflow tracts and diaphragms; no appreciable abnormality. Electronically authenticated by: RAMIN ALVAREZ Date: 2021-10-23 17:30NormSalem Regional Medical CenterCOXSACKIE B VIRUS ANTIBODIESon 21-74-5285Jmouxxgxc B-1 Ab NegativeNormalNeg:<1:8The [facility] HospitalComment on above:Performed By: #### COXSIGM #### [facility] [address] [place] [address] Dr. Kavitha WillisCoxsblu B-2 AbNegativeNormalNeg:<1:8The [facility] Comment on above:Performed By: #### COXSIGM #### [facility] [address] [address] [address] Kavitha Fierro B-3 AbNegativeNormalNeg:<1:8The [facility] Comment on above:Performed By: #### COXSIGM #### [facility] [address] [address] [address] Kavitha Fierro B-4 AbNegativeNormalNeg:<1:8The [facility] Comment on above:Performed By: #### COXSIGM #### [facility] [address] [address] [address] Kavitha Fierro B-5 AbNegativeNormalNeg:<1:8The [facility] Comment on above:Performed By: #### COXSIGM #### [facility] [address] [place] [address] Dr. Kavitha Fierro B-6 AbNegativeNormalNeg:<1:8ThGuernsey Memorial Hospital Comment on above:Performed By: #### COXSIGM #### [facility] [address] [address] [address] Kavitha Fierro A VIRUS AB IGMon [id number] A16 IgMNegative NormalNeg:<1:10ThGuernsey Memorial HospitalComment on above:Performed By: #### COXSIKATIA #### [facility] [address] [address] [address] Kavitha Fierro A24 IgMNegativeNormalNeg:<1:10The [facility] Comment on above:Performed By: #### COXSIGM #### [facility] [address] [address] [address] Kavitha Fierro A7 IgMNegativeNormalNeg:<1:10ThGuernsey Memorial Hospital Comment on above:Performed By: #### COXSIGM #### [facility] [address] [place] [address] Dr. Kavitha Fierro A9 IgMNegativeNormalNeg:<1:10ThGuernsey Memorial Hospital Comment on above:Performed By: #### COXSIGM #### [facility] [address] [address] [address] Kavitha WillisGROUP A STREP CULTUREon 10-16-2021. pyogenes Ag Ql (Unsp spec) Culture Observations: NEGATIVE FOR GROUP A STREPTOCOCCUS.NormalThe [facility] HospitalComment on above: Performed By: #### DRUGRPD #### [facility] [address] [address] [address] Kavitha WillisSTREPT SCREENon 01-05-4239EITUF SCREEN ANegativeNormalNEGATIVEThe [facility] HospitalComment on above:Performed By: #### DRUGRPD #### [facility] [address] [address] [address] Kavitha WillisUS PREG ANATOMY SINGLEon [id number] PREG ANATOMY SINGLE EXAMINATION: US PREG ANATOMY SINGLE HISTORY: screening COMPARISON: No relevant comparison available. TECHNIQUE: Transabdominal sonographic examination was performed for obstetrical and evaluation. FINDINGS: Number: 1 Heart Rate: 153.0 bpm H.B. /min Amniotic Fluid Volume: Subjectively normal position: Breech presentation, longitudinal lie Placental Location: Posterior, grade 0. Placental edge 5.8 cm from the cervical os Cervix Length: 4.1 cm, closed, nabothian cysts. Normally visualized anatomy: Cerebellum, choroid plexus, cisterna magna, lateral cerebral ventricles, orbits, midline falx, hard palate, four-chamber heart, stomach, kidneys, bladder, umbilical cord insertion into the abdomen, three-vessel cord, cervical spine, thoracic spine, lumbar spine, sacral spine, right upper extremity, left upper extremity, right lower extremity, left lower extremity Suboptimally visualized anatomy: RVOT, LVOT, diaphragm BIOMETRY: BPD: 4.6 cm 20 weeks 0 days , 55% HC: 17.9 cm 20 weeks 2 days, 66% AC: 14.8 cm 20 weeks 0 days, 50% FL: 3.5 cm 21 weeks 0 days, 82% EFW:355.6 grams; 13 ounces, 79% FL/AC: 23.7 FL/BPD: 75.8 HC/AC: 1.2 GESTATIONAL AGE: Age by EDC: 19 weeks 6 days MULUGETA by EDC: 02/09/2022 Age by current US: 20 weeks 2 days MULUGETA by current US: 02/12/2022 IMPRESSION: Suboptimal visualization of the ventricular outflow tracts and diaphragm Otherwise normal anatomy scan *Reference: [employer] Practice Guideline for the performance of Obstetric Ultrasound Examinations, December 28, 2006. Electronically authenticated by: MARY ANNE MCKEON Date: 2021-09-24 16:[address] [place], [place] [address]ABO/Rhon 39-31-6769LXN/RhNegativeUniversity Hospitals [facility] Comment on above:Performed By: #### [id number], [id number] #### [facility] [address], [place] [address]Hipf Don 13-23-6343Az D InterpPositiveRegency Hospital ToledoComment on above:Performed By: #### [id number], [id number] #### [facility] [address], [place] [address]Sy D InterpPosiEast Ohio Regional HospitalComment on above:Performed By: #### [id number] #### [facility] [address] [place] [address] Vital Signs Date TimeVital SignValuePerforming SirydtiggQqvewenk95-31-2504 09:36-0500Body gtemcf988.2 cmAssumpta Destiney ERICKSON-FEEDER LOADER Work Phone: [facility]11-07-2025 09:36-0500Body mass index (BMI) [Ratio]45.03 kg/x9Dytecxvf Destiney MCPHERSONN-FEEDER LOADER Work Phone: [facility]11-07-2025 09:36-0500Body bvwxavamodi40.59 [degF]Assumpta Destiney MCPHERSONN-FEEDER LOADER Work Phone: [facility]11-07-2025 09:36-0500Body xliyar022.46 kgAssumpta Destiney MCPHERSONN-FEEDER LOADER Work Phone: [facility]11-07-2025 09:36-0500Diastolic blood esuiplil32 mm[Hg]Assumpta Destiney MCPHERSONN-FEEDER LOADER Work Phone: [facility]11-07-2025 09:36-0500Heart rate 81 /minAssumpta Destiney MCPHERSONN-FEEDER LOADER Work Phone: 1([phone] [place], [place] [address]11-07-2025 09:36-2891ZsU9% (BldA) [Mass fraction]98 %Assumpta Destiney MCPHERSONN-FEEDER LOADER Work Phone: 1([phone])170-[address] [place], [place] 46[address]11-07-2025 09:36-0500Systolic blood esgbbpzj445 mm[Hg]Assumpta Destiney MCPHERSONN-FEEDER LOADER Work Phone: [phone]10-24-2025 09:39-0400Body fjxehk608.2 cmAssumpronnie Reece APRN-FEEDER LOADER Work Phone: 1([phone] [place], [place] [address]10-24-2025 09:39-0400Body mass index (BMI) [Ratio]45.28 kg/m4Obieatxb Destiney MCPHERSONN-FEEDER LOADER Work Phone: 1(203)172-[address] [place], [place] 46[address]10-24-2025 09:39-0400Body ofzaeuhngbc26.4 [degF]Assumpta Destiney MCPHERSONN-FEEDER LOADER Work Phone: [phone])444-[address] [place], [place] [address]10-24-2025 09:39-0400Body ogftop804.18 kgAssumpta Destiney MCPHERSONN-FEEDER LOADER Work Phone: 1(558)957-[address] [place], [place] [address]10-24-2025 09:39-0400Diastolic blood gkvjbsax28 mm[Hg]Assumpta Destiney MCPHERSONN-FEEDER LOADER Work Phone: 1([phone])325-[address] [place], [place] [address]10-24-2025 09:39-0400Heart rate 84 /minAssumpronnie Reece APRN-FEEDER LOADER Work Phone: [phone])373-[address] [place], [place] [address]10-24-2025 09:39-9098YqT3% (BldA) [Mass fraction]98 %Assumpta Destiney MCPHERSONN-FEEDER LOADER Work Phone: 1(091)242-[address] [place], [place] [address]10-24-2025 09:39-0400Systolic blood mm[Hg]Assumpta Destiney ERICKSON-FEEDER LOADER Work Phone: [facility]09-26-2025 09:45-0400Body imnfsy948.2 cmAssumpronnie Reece APRN-FEEDER LOADER Work Phone: [facility]09-26-2025 09:45-0400Body mass index (BMI) [Ratio]45.97 kg/m9Kegcxahxronnie Reece APRN-FEEDER LOADER Work Phone: [facility]09-26-2025 09:45-0400Body sayozevrukm18.1 [degF]Assumbipin Reece APRN-FEEDER LOADER Work Phone: [facility]09-26-2025 09:45-0400Body ybnhlb381.18 kgAssumpronnie Reece APRN-FEEDER LOADER Work Phone: [facility]09-26-2025 09:45-0400Diastolic blood vexriwoa53 mm[Hg]Assumpta Destiney MCPHERSONN-FEEDER LOADER Work Phone: [facility]09-26-2025 09:45-0400Heart rate 67 /minAssumpronnie Reece APRN-BETTIE Work Phone: [facility]09-26-2025 09:45-5479XuE2% (BldA) [Mass fraction]98 %Assumbipin Reece APRN-FEEDER LOADER Work Phone: [facility]09-26-2025 09:45-0400Systolic blood mm[Hg]Assumpta Destiney MCPHERSONN-FEEDER LOADER Work Phone: [facility]07-09-2025 10:34-0400Body mass index (BMI) [Ratio]44.99 kg/k1Frrhoxjuj Reyes VIDEO GAME ENGINEER-FEEDER LOADER Work Phone: [facility]07-09-2025 10:34-0400Body vxuybvhspdx47.81 [degF]Arturo Reyes VIDEO GAME ENGINEER-FEEDER LOADER Work Phone: [facility]07-09-2025 10:34-0400Body gokida149.17 kgAlerashaun Reyes VIDEO GAME ENGINEER-FEEDER LOADER Work Phone: [facility]07-09-2025 10:34-0400Diastolic blood muuvvddz33 mm[Hg]Arturo Reyes VIDEO GAME ENGINEER-FEEDER LOADER Work Phone: [facility]07-09-2025 10:340400Heart rate 79 /minAlerashaun Reyes VIDEO GAME ENGINEER-FEEDER LOADER Work Phone: [facility]07-09-2025 10:34-1424FmX9% (BldA) [Mass fraction]97 %Arturo Reyes VIDEO GAME ENGINEER-FEEDER LOADER Work Phone: [facility]07-09-2025 10:34-0400Systolic blood ixdwvwft566 mm[Hg]Arturo Reyes VIDEO GAME ENGINEER-FEEDER LOADER Work Phone: [facility]06-25-2025 15:11-0400Body rgauxh956.7 cmNannetetbinu AlonsoYanique VIDEO GAME ENGINEER-FEEDER LOADER Work Phone: [facility]06-25-2025 15:11-0400Body mass index (BMI) [Ratio]45.44 kg/w5Geovie Yanique VIDEO GAME ENGINEER-FEEDER LOADER Work Phone: [facility]06-25-2025 15:11-0400Body drcsnbclmuw97.49 [degF]Lauryn Chanel VIDEO GAME ENGINEER-FEEDER LOADER Work Phone: [facility]06-25-2025 15:11-0400Body foabit034.53 kgLauryn Chanel VIDEO GAME ENGINEER-FEEDER LOADER Work Phone: [facility]06-25-2025 15:11-0400Diastolic blood pbuibsrg79 mm[Hg]Lauryn Chanel VIDEO GAME ENGINEER-FEEDER LOADER Work Phone: [facility]06-25-2025 15:11-0400Heart rate 76 /minLauryn Chanel VIDEO GAME ENGINEER-FEEDER LOADER Work Phone: [facility]06-25-2025 15:11-5828GfJ5% (BldA) [Mass fraction]98 %Lauryn Chanel VIDEO GAME ENGINEER-FEEDER LOADER Work Phone: [facility]06-25-2025 15:11-0400Systolic blood baupilbs738 mm[Hg]Lauryn Chanel VIDEO GAME ENGINEER-FEEDER LOADER Work Phone: [facility]06-06-2025 07:38-0400Body xqwisr101.7 cmAroxadam Reyes VIDEO GAME ENGINEER-FEEDER LOADER Work Phone: [facility]06-06-2025 07:38-0400Body mass index (BMI) [Ratio]45.16 kg/h3Rubfchbuq Reyes VIDEO GAME ENGINEER-FEEDER LOADER Work Phone: [facility]06-06-2025 07:38-0400Body tkiedraelyj01.01 [degF]Arturo Rojas VIDEO GAME ENGINEER-FEEDER LOADER Work Phone: [facility]06-06-2025 07:38-0400Body zocyku258.72 kgAlerashaun Reyes VIDEO GAME ENGINEER-FEEDER LOADER Work Phone: [facility]06-06-2025 07:38-0400Diastolic blood mm[Hg]Arturo Reyes VIDEO GAME ENGINEER-FEEDER LOADER Work Phone: [facility]06-06-2025 07:38-0400Heart rate 92 /minAlejanabisi Reyes VIDEO GAME ENGINEER-FEEDER LOADER Work Phone: [facility]06-06-2025 07:38-1477IzT8% (BldA) [Mass fraction]98 %Arturo Bhagats VIDEO GAME ENGINEER-FEEDER LOADER Work Phone: [facility]06-06-2025 07:38-0400Systolic blood yqozgoyx385 mm[Hg]Arturo Reyes VIDEO GAME ENGINEER-FEEDER LOADER Work Phone: [facility]01-27-2025 10:35-0500Body mass index (BMI) [Ratio]45.77 kg/t6Arvddhsrprashaun Reyes VIDEO GAME ENGINEER-FEEDER LOADER Work Phone: [facility]01-27-2025 10:35-0500Body yyygwfwfnta49.1 [degF]Arturo Reyes VIDEO GAME ENGINEER-FEEDER LOADER Work Phone: [facility]01-27-2025 10:35-0500Body ixjlhq576.53 kgAlerashaun Reyes VIDEO GAME ENGINEER-FEEDER LOADER Work Phone: [facility]01-27-2025 10:35-0500Diastolic blood fqpinlnf68 mm[Hg]Arturo Reyes VIDEO GAME ENGINEER-FEEDER LOADER Work Phone: [facility]01-27-2025 10:35-0500Heart rate 97 /minAlerashaun Reyes VIDEO GAME ENGINEER-FEEDER LOADER Work Phone: [facility]01-27-2025 10:35-5203QyM5% (BldA) [Mass fraction]99 %Arturo Reyes VIDEO GAME ENGINEER-FEEDER LOADER Work Phone: [facility]01-27-2025 10:35-0500Systolic blood mm[Hg]Arturo Reyes VIDEO GAME ENGINEER-FEEDER LOADER Work Phone: [facility]10-02-2024 13:13-0400Body .2 Shyanne RYAN Work Phone: [facility] CenterBdgvyulpru59-06-6319 13:13-0400Body mass index (BMI) [Ratio]45.89 kg/m2Ashely RYAN Work Phone: [facility] CenterNqxdqwmoce68-73-9220 13:13-0400Body udkeou303.9 kgAshely RYAN Work Phone: [facility] CenterLyqntzoqwd94-74-8327 13:13-0400Diastolic blood dqvkoiqu72 mm[Hg]Ashely RYAN Work Phone: [facility] CenterDqsnhmukow72-04-1441 13:13-0400Systolic blood ouypofar747 mm[Hg]Ashely RYAN Work Phone: [facility] CenterRidtvzctwd92-52-8381 08:24-0400Body mass index (BMI) [Ratio]43.85 kg/p5Lquszteikrashaun Reyes VIDEO GAME ENGINEER-FEEDER LOADER Work Phone: [facility]08-21-2024 08:24-0400Body lkuupvwfiqu95.81 [degF]Arturo Reyes VIDEO GAME ENGINEER-FEEDER LOADER Work Phone: [facility]08-21-2024 08:24-0400Body ilcuph357.82 kgAlerashaun Reyes VIDEO GAME ENGINEER-FEEDER LOADER Work Phone: [facility]08-21-2024 08:24-0400Diastolic blood cvnvqgae05 mm[Hg]Arturo Reyes VIDEO GAME ENGINEER-FEEDER LOADER Work Phone: [facility]08-21-2024 08:24-0400Heart rate 80 /minAlerashaun Reyes VIDEO GAME ENGINEER-FEEDER LOADER Work Phone: [facility]08-21-2024 08:24-6144ElO6% (BldA) [Mass fraction]98 %Arturo Reyes VIDEO GAME ENGINEER-FEEDER LOADER Work Phone: [facility]08-21-2024 08:24-0400Systolic blood momfcyva922 mm[Hg]Arturo Rojas VIDEO GAME ENGINEER-FEEDER LOADER Work Phone: [facility]02-27-2024 11:44-0500Body mass index (BMI) [Ratio]45.1 kg/m8Zrkeqjkuorashaun Reyes VIDEO GAME ENGINEER-FEEDER LOADER Work Phone: [facility]02-27-2024 11:44-0500Body zjtwlpgnotg19.29 [degF]Arturo Reyes VIDEO GAME ENGINEER-FEEDER LOADER Work Phone: [facility]02-27-2024 11:44-0500Body vxdivt583.54 kgAlerashaun Reyes VIDEO GAME ENGINEER-FEEDER LOADER Work Phone: [facility] HospitalFlocastsnh [place] Qqqjkr49-37-7953 11:44-0500Diastolic blood eellwytu86 mm[Hg]Arturo Reyes APRN-FEEDER LOADER Work Phone: [facility] [place].lá Pcpbto96-22-1609 11:44-0500Heart rate 92 /minAlerashaun Reyes VIDEO GAME ENGINEER-FEEDER LOADER Work Phone: [facility]02-27-2024 11:44-7775KzG3% (BldA) [Mass fraction]99 %Arturo Reyes VIDEO GAME ENGINEER-FEEDER LOADER Work Phone: [facility] [place] Wagztg09-95-3122 11:44-0500Systolic blood ocsihwbz522 mm[Hg]Arturo Reyes APRN-FEEDER LOADER Work Phone: [facility] Encounters Encounter DateEncounter TypeCare ProviderFacilityStart: 02-03-2025 End: 19-89-7651Rrrvoc outpatient visit 15 minutesAssumpta [facility] VIDEO GAME ENGINEER-FEEDER LOADER Work Phone: [facility] Physicians Family MedicineComment on above: Ear pain, bilateral (Primary Dx); DizzinessStart: 02-03-2025 End: 83-81-3345yxdpaseipuXXYQMQKQ [facility] Ambulatory PPGStart: 01-23-2025 End: 03-30-0517Mlnhpq OnlyAssumpta [facility] AugustaiDiDiDN-FEEDER LOADER Work Phone: [facility] Physicians Family MedicineComment on above: AnxietyStart: 01-21-2025 End: 55-01-9406Kksrjz OnlyLauryn Chanel VIDEO GAME ENGINEER-FEEDER LOADER Work Phone: [facility] Physicians Family MedicineStart: 01-20-2025 End: 17-93-0143Qrrbwn outpatient visit 15 minutesAssumpta Prezi aCloakroom VIDEO GAME ENGINEER-FEEDER LOADER Work Phone: [facility] Physicians Family MedicineComment on above: Mild persistent asthma with exacerbation (Primary Dx); Upper respiratory infection, viral; AnxietyStart: 01-20-2025 End: 46-67-9025yzbztupcetFIEDZSFBFour [facility]s [facility]iatric [facility] Ambulatory PPGStart: 01-16-2025 End: 97-71-6486KubiuyWagewpb [facility] HospitalMed[facility] Physicians Family MedicineComment on above:AnxietyStart: 01-09-2025 End: 23-83-6292Kfxkhebkp encounterSmelissa JiangoMedvirginia Physicians [facility] MedicineStart: 01-04-2025 End: 39-35-1209Nlhjzaqdw encounterSilmarvin Nielsen [facility] MedicineStart: 12-23-2024 End: 61-99-3398Vdggxa outpatient visit 25 minutesAssumpAtlantiCare Regional Medical [facility] Destiney VIDEO GAME ENGINEER-FEEDER LOADER Work Phone: [facility] Physicians Family MedicineComment on above: Anxiety (Primary Dx); Subclinical hypothyroidism; Vitamin D deficiency; Chest pain, unspecified type; Vertigo; 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Start: 12-23-2024 End: 32-90-2791lzmfsmuoxgILATHQEHElmira Psychiatric Center Ambulatory PPGStart: 11-29-2024 End: 72-77-9881Bggsyzzhr department patient visitALEHolzer Health Systemtart: 11-24-2024 End: 04-79-0940Umrekn-up encounterAlerashaun Reyes VIDEO GAME ENGINEER-FEEDER LOADER Work Phone: [facility] Physicians Family MedicineComment on above: Lipid panel, Comprehensive metabolic panel, CBC auto differential, Additional followed-up results: 5Start: 68-08-9819lnlgrajlipRQQZURVXRAtrium Health Wake Forest Baptist Davie Medical Centertart: 10-18-2024 End: 33-24-8134vrndqlehedSHPKYONKFHCA [facility] Ambulatory PPGStart: 67-44-9061Jippwugmv for general adult medical examination without abnormal findingsTexas Health [facility] Ambulatory PPGStart: 10-18-2024 End: 87-17-7970Qjvjlf outpatient visit 15 minutesAlerashaun Reyes VIDEO GAME ENGINEER-FEEDER LOADER Work Phone: [facility] Physicians Family MedicineComment on above: Fatigue, unspecified type (Primary Dx); Healthcare maintenance; Encounter for lipid screening for cardiovascular disease; Anemia, unspecified type; ParesthesiaStart: 10-18-2024 End: 96-95-1833Kmovpqz encounter statusAlerashaun Reyes APRN-FEEDER LOADER Work Phone: [facility] [employer] Work Phone: Start: 10-05-2024 End: 85-98-9378Aowswq-up encounterMerdayna Nielsen Physicians Family MedicineComment on above:CT abdomen and pelvis without contrastStart: 10-05-2024 End: 08-48-9625Wfdtra outpatient visit 15 minutesArturo Reyes APRN-FEEDER LOADER Work Phone: [facility] Family MedicineComment on above: Gastroesophageal reflux disease, unspecified whether esophagitis present (Primary Dx); Acute pain of left kneeStart: 10-05-2024 End: 90-79-2447aiguxcwnifYWYQAQXSNHCA [facility] Ambulatory PPGStart: 09-26-2024 End: 64-91-1156KxwtnhHbydbhkul Rojas VIDEO GAME ENGINEER-FEEDER LOADER Work Phone: [facility] Physicians Family MedicineComment on above: Gastroesophageal reflux disease, unspecified whether esophagitis presentStart: 09-22-2024 End: 69-71-7796egqzgcqpnuOMNCXKMcLeod Regional Medical Center HospitalStart: 09-21-2024 End: 33-28-1465Svemes outpatient visit 15 minutesLauryn Chanel VIDEO GAME ENGINEER-FEEDER LOADER Work Phone: [facility] Physicians Family MedicineComment on above: Acute pain of left knee (Primary Dx)Start: 09-21-2024 End: 31-90-7306hsybzglmxtAKYMHKAvoyelles Hospital Ambulatory PPG Start: 09-16-2024 End: 40-58-7682lprikclvziTJLNVIGKICentral [facility] Medical Center HospitalStart: 09-06-2024 End: 79-67-0544Rhzuwltsg encounterSmelissa Nielsen Physicians Family MedicineComment on above:CTStart: 09-02-2024 End: 01-85-9391Zurrgv outpatient visit 15 minutesAlexabisi Bhagats VIDEO GAME ENGINEER-FEEDER LOADER Work Phone: [facility]icians Family MedicineComment on above: Right non-suppurative otitis media (Primary Dx); Gastroesophageal reflux disease, unspecified whether esophagitis present; Right lower quadrant abdominal pain; Epigastric painStart: 09-02-2024 End: 79-19-0236ptyhajaiibHFZDQLBVSHCA [facility] Ambulatory PPGStart: 06-21-2024 End: 43-06-2953IcicfrVntfjbwls Reyes VIDEO GAME ENGINEER-FEEDER LOADER Work Phone: [facility]ediatric[facility] Comment on above:Iron deficiency anemia, unspecified iron deficiency anemia type Start: 05-11-2024 End: 26-52-2441Ycwstg OnlyAlexand Reyes VIDEO GAME ENGINEER-FEEDER LOADER Work Phone: [facility] Family MedicineStart: 05-07-2024 End: 18-27-5681Qlksbq OnlyAlexandra Reyes VIDEO GAME ENGINEER-FEEDER LOADER Work Phone: [facility] Family MedicineStart: 04-25-2024 End: 11-39-4056Pbxciq outpatient visit 15 minutesAlexabisi Bhagats VIDEO GAME ENGINEER-FEEDER LOADER Work Phone: [facility] Family MedicineComment on above: Acute cough (Primary Dx); Moderate persistent asthma, unspecified whether complicated; Acute bronchitis, unspecified organism; Right otitis media, unspecified otitis media typeStart: 04-25-2024 End: 63-00-4998smzrsxnpvvSLYRTPBVAHCA [facility] Ambulatory PPGStart: 02-29-2024 End: 57-66-7840HyyvbtIxkynvlrn Reyes VIDEO GAME ENGINEER-FEEDER LOADER Work Phone: [facility] Start: 02-24-2024 End: 76-76-9061XjimjqWkatkknhc Reyes VIDEO GAME ENGINEER-FEEDER LOADER Work Phone: [facility] Start: 02-02-2024 End: 93-38-9492Svpvne outpatient visit 10 minutesAlexajudyra Reyes VIDEO GAME ENGINEER-FEEDER LOADER Work Phone: [facility] Comment on above:Vertigo (Primary Dx); Moderate persistent asthma with acute exacerbation; Acute maxillary sinusitis, recurrence not specifiedStart: 12-30-2023 End: 70-25-7015Iwqxat flowsheetAshely RYAN Work Phone: [facility] OBStart: 12-30-2023 End: 20-48-9485Hdlepf flowsheetAshely RYAN Work Phone: [facility] BCP OBStart: 12-30-2023 End: 72-67-2737Gsfldccqp Result EncounterAshely RYAN Work Phone: [facility] External Department UnsolicitedStart: 12-30-2023 End: 46-46-8670Egvhous encounter procedureAshely RYAN Work Phone: noms HealthcareStart: 12-30-2023 End: 59-15-5695Wkshuhlb preventive med est patient 18-39 yrsAshely She RYAN Work Phone: [facility] OBComment on above:Well woman exam with routine gynecological examStart: 12-30-2023 End: 36-29-6682zrijysulmqYJS RAMEYNot AvailableStart: 12-10-2023 End: 59-62-3212Aymrotaps encounterSweta JiangoMedvirginia Physicians Family MedicineComment on above:FMLAStart: 11-18-2023 End: 41-10-2476Yipbwgqxd encounterLisa Bunch CMAProMedica Physicians Family MedicineStart: 11-18-2023 End: 47-92-1961Wqvlby outpatient visit 10 minutesAlexandra Reyes VIDEO GAME ENGINEER-FEEDER LOADER Work Phone: [facility] Family MedicineComment on above: Vertigo (Primary Dx)Start: 11-11-2023 End: 40-88-9931Lbijcz OnlyAlexabisi Bhagats VIDEO GAME ENGINEER-FEEDER LOADER Work Phone: [facility] Comment on above:Health care maintenance (Primary Dx); Fatigue, unspecified type; Anemia, unspecified typeStart: 11-11-2023 End: 23-58-3921Yujrpvj encounter statusAlerashaun Reyes VIDEO GAME ENGINEER-FEEDER LOADER Work Phone: [facility] Work Phone: Start: 06-11-2023 End: 33-69-2242Anqvuq outpatient visit 10 minutesAlebisi Reyes VIDEO GAME ENGINEER-FEEDER LOADER Work Phone: [facility] Physicians Family MedicineComment on above: Acute bilateral back pain, unspecified back location (Primary Dx); Acute bilateral low back pain without sciatica; Low back pain without sciatica, unspecified back pain laterality, unspecified chronicityStart: 05-26-2023 End: 66-72-9016Tpthgm outpatient visit 10 minutesAleOBX Boatworksbisi Eric VIDEO GAME ENGINEER-FEEDER LOADER Work Phone: [facility] Internal Medicine/Pediatrics Comment on above:Upper respiratory tract infection, unspecified type (Primary Dx); Acute bilateral low back pain without sciaticaStart: 63-95-3464hzqboawzepIGDJGR LEHMANNFacility:W5Yuugb: 08-04-2022 End: 77-37-0048pyqvnlxtnjFHNSJX SAMSA .Facility:B0Qdcek: 02-11-2022 End: 47-42-5684quikarlatjZSGIIUDQI SYLVIADIOFacility:W6Nsofi: 02-07-2022 End: 61-85-9613naiihaszwqOJ TOM TAM .Facility:A8Jqdzb: 02-03-2022 End: 31-75-7417Elyqrmbdod and management of inpatientDR TOM TAM .Facility:H1 Start: 01-23-2022 End: 45-06-5876cdjlcruarjHP TOM TAM .Facility:G3Mflnu: 12-17-2021 End: 40-03-6998gtbahfbrsoRI TOM TAM .Facility:C9Flmfi: 11-21-2021 End: 38-44-0072lmlhscfhuyNN TOM TAM .Facility:K6Jthxs: 11-20-2021 End: 52-80-7463wizycetbmlGC TOM TAM .Facility:J3Oulhw: 2021 End: 68-78-3301iqbhhcrdvzMB TOM TAM .Facility:H1Ytcew: 10-23-2021 End: 44-41-1332nzvwsyssweUG TOM TAM .Facility:F6Bkgxd: 10-16-2021 End: 30-57-9984glqekqbpvtOA TOM TAM .Facility:B1Oiwqd: 09-24-2021 End: 56-75-7360badvdnzrgtIELSOO LEHMANNFacility:A9Urzhe: 35-00-3632qjpglrwndw DIANE LEHMANNFacility:H1 Procedures DateProcedureProcedure DetailPerforming ClinicianStart: 82-28-7839Ifsbg depression screening assessmentAssumpta DharmeshUNC Health Work Phone: Start: 69-86-7290Havcu depression screening assessment Assumpta [facility] Work Phone: Start: 57-10-0504Gpdzf depression screening assessment Arturo Reyes [facility] Work Phone: Start: 20-60-6280Gdwuqu-up visitFollow-Sam ORTIZtart: 40-06-4372Uydnm depression screening assessmentSweta Evans CNA Start: 55-33-0057Otroo depression screening assessmentLauryn Chanel [facility] Work Phone: Start: 94-83-7403TBES XPERT, XPRESS COV-2, FLU, RSV PLUS (CEPHEID)Arturo Reyes [facility] Work Phone: Start: 04-37-2523LOR,APTIMA HPV,AGE GDLNAshely RYAN Work Phone: Start: 40-66-1673Xwlfnwirhoa observation [Identifier] in Cervix by Cyto stainAlerashaun Reyes [facility] Work Phone: Start: 33-23-7359Qvmll depression screening assessment Arturo Reyes [facility] Work Phone: Start: 52-89-8467Tgsxsyuwsy of Products of Conception, Low Cervical, Open ApproachDR TOM TAM .Start: 92-39-4164Rnpwufabmqp observation [Identifier] in Cervix by Nataliia LITTLEJOHN Work Phone: Plan of Treatment DateCare ActivityDetailAuthorStart: 45-96-0719Ilrfsujtp for malignant neoplasm of cervixPap SmearProDekalb Regional Medical Center Health SystemStart: 07-79-5104Ldpuc BMI Screening Adult BMI ScreeningProvidence Hospitalca [facility] SystemStart: 05-66-9531Wbnwpjjkro Screening Depression ScreeningSelect Medical [facility] SystemStart: 18-51-8529Swash BMI Screening Adult BMI ScreeningProvidence Hospitalca [facility] SystemStart: 58-14-8530Louvipx Screening Tobacco ScreeningSelect Medical [facility] Rehabilitation Hospital Health SystemStart: 03-36-6796Tzzst BMI Follow Up PlanAdult BMI Follow Up PlanSelect Medical [facility]Health Rehabilitation Hospital SystemStart: 88-08-4618Pomqq BMI ScreeningAdult BMI ScreeningProvidence Hospitalca Health SystemStart: 97-24-1201Gqgzuysocr ScreeningDepression ScreeningProvidence Hospitalca Health SystemStart: 77-09-7506Qagnysl ScreeningTobacco ScreeningProvidence Hospitalca [facility] SystemStart: 57-63-0989Mhbjzpfmez ScreeningDepression ScreeningProvidence Hospitalca Health SystemStart: 97-78-0245Wwvpzko ScreeningTobacco ScreeningProvidence Hospitalca Health SystemStart: 73-86-4358Vtjxa BMI ScreeningAdult BMI ScreeningProvidence Hospitalca [facility] SystemStart: 84-27-0213Mjvrdkmcin ScreeningDepression ScreeningProvidence Hospitalca Health SystemStart: 22-13-8284Hosjzod ScreeningTobacco ScreeningProvidence Hospitalca Health SystemStart: 33-44-7966Htejb BMI ScreeningAdult BMI ScreeningProvidence Hospitalca [facility] SystemStart: 66-93-3727Igsipdbocq ScreeningDepression ScreeningProvidence Hospitalca [facility] SystemStart: 45-32-6101Jxwca BMI ScreeningAdult BMI ScreeningProvidence Hospitalca [facility] SystemStart: 91-06-5629Wshmjpp ScreeningTobacco ScreeningProvidence Hospitalca Health SystemStart: 06-05-2025 End: 33-21-1796Wydqjzn encounter wykcytyph36/09/2026 9:20 AM EDT Office Visit [facility] [address] [place] [address] Arturo Reyes VIDEO GAME ENGINEER-FEEDER LOADER [address] [place] [phone] [facility] MedicineStart: 20-63-2447Syfnh BMI ScreeningAdult BMI ScreeningProOhiohealth [facility] SystemStart: 48-77-4072Golqflh ScreeningTobacco ScreeningSelect Medical [facility] System Start: 03-08-2025 End: 10-99-4722Sigqzgv encounter aapshocgs54/10/2025 11:00 AM EST Office Visit [facility] [address] [address] Arturo Reyes VIDEO GAME ENGINEER-FEEDER LOADER [address] [place] [phone] [facility] MedicineStart: 02-09-2025 End: 67-94-3825kpwakinrnk83/13/2025 9:20 AM EST Lab [facility] Lab [address] [place] [address] DruKnaklmCleveland Clinic [facility] - LabStart: 02-03-2025 End: 76-08-9694Ydzuykh encounter fhupgpruw26/07/2025 9:40 AM EST Office Visit [facility] [address] [phone] Becky Reece, VIDEO GAME ENGINEER-FEEDER LOADER [address] [place] [address] [facility] Physicians [facility] MedicineStart: 94-99-4296Lmetdxt ScreeningTobacco ScreeningSelect Medical [facility] Rehabilitation Hospital SystemStart: 01-22-2025 End: 91-67-3473Exxfewj profile includes TSH WH0Oklsfpe profile includes TSH FT4 Lab Routine Subclinical hypothyroidism Expected: 01/22/2025 (Approximate), Expires: 12/23/2025[facility] Work Phone: Comment on above:Expected: 01/22/2025 (Approximate), Expires: 12/23/2025Start: 01-20-2025 End: 28-36-5528Wcbkpdd encounter tzoplvsny90/24/2025 10:00 AM EDT Office Visit [facility] [address] [place] [address] [place] [address] Becky Reece N, VIDEO GAME ENGINEER-FEEDER LOADER [address] [place] [address] JennyGrand [facility] MedicineStart: 01-06-2025 End: 95-95-7856Rckxayo encounter oqsyddxqm40/10/2025 10:00 AM EDT Office Visit [facility] [address] [place] [address] [place] [address] David Allen, [address] [place] [address], [address], [place] [address] [facility] Physicians [facility] MedicineStart: 01-02-2025 End: 22-36-4776Cpehbvu encounter yqhkpelpc79/06/2025 10:00 AM EDT Office Visit [facility] [address] [place] [phone] Ashely Nowak PA [address] [place] [address] [facility] OBStart: 12-23-2024 End: 28-23-1102Wkmpmaad stress test studyStress test (exercise only) Cardiac Services Routine Chest pain, unspecified type Expected: 12/23/2024, Expires: 12/23/2025[facility] Health SystemComment on above:Expected: 12/23/2024, Expires: 12/23/2025Start: 02-28-7781Qvmbe BMI ScreeningAdult BMI ScreeningProMedica Health SystemStart: 96-18-2774Snggbme ScreeningTobacco ScreeningProOhiohealth [facility] SystemStart: 10-18-2024 End: 62-59-5833NWD with ReflexTSH with Reflex Lab Routine Healthcare maintenance Anemia, unspecified type Fatigue, unspecified type Paresthesia Expected: 10/18/2024 (Approximate), Expires: 10/18/2025[facility] SystemComment on above:Expected: 10/18/2024 (Approximate), Expires: 10/18/2025Start: 10-05-2024 End: 61-85-6682QX Knee WO contrastMR knee left without contrast Imaging Routine Acute pain of left knee Expected: 10/05/2024, Expires: 10/05/2025[facility] Work Phone: Comment on above:Expected: 10/05/2024, Expires: 10/05/2025Start: 10-05-2024 End: 64-96-7683Xtpqtld encounter rvrotavuw92/09/2025 10:40 AM EDT Office Visit [facility] [address] [place] [address] Arturo Reyes APRN-FEEDER LOADER [address] [place] [phone] [facility] Family MedicineStart: 09-21-2024 End: 29-47-9545BL Knee - left 4 ViewsX-ray knee left minimum 4 views Imaging Routine Acute pain of left knee Expected: 09/21/2024, Expires: 09/21/2025 [facility] Work Phone: Comment on above:Expected: 09/21/2024, Expires: 09/21/2025Start: 09-16-2024 End: 28-44-8362Hkidkto encounter rqwbvgtud40/20/2025 3:30 PM EDT Appointment [facility] Imaging [address] [place] [address] [facility] - [place] ImagingStart: 09-02-2024 End: 68-33-9212PS Abdomen and Pelvis WO contrastCT abdomen and pelvis without contrast Imaging Routine Right lower quadrant abdominal pain Epigastric pain Expected: 09/02/2024, Expires: 09/02/2025[facility] Work Phone: Comment on above:Expected: 09/02/2024, Expires: 09/02/2025Start: 11-42-5585Clpdzfa ScreeningTobacco ScreeningSelect Medical [facility] Rehabilitation Hospital SystemStart: 95-63-1306Pxlqr BMI ScreeningAdult BMI ScreeningSelect Medical TriHealth Rehabilitation Hospital SystemStart: 36-07-9457Jgwrris ScreeningTobacco ScreeningSelect Medical [facility] Rehabilitation [facility] System Start: 12-30-2023 End: 66-73-7510Zdjvlzw encounter qahkwzocw84/02/2024 1:00 PM EDT Office Visit [facility] [address] [place] [phone] Ashely Nowak PA [address] [place] [address] ArrivedNOTN BCP OBComment on above:ArrivedStart: 11-18-2023 End: 48-85-5458Kxrmpff encounter jvebglpwv54/21/2024 8:30 AM EDT Office Visit [facility] [address] [place] [phone] Arturo Reyes VIDEO GAME ENGINEER-FEEDER LOADER [address] [place] [address] [place] [phone] [facility] Centertart: 11-02-2023 End: 31-20-6658Jgdgviz encounter fprmzygbm03/05/2024 4:15 PM EDT [facility] [address] [place] [phone] Arturo Reyes VIDEO GAME ENGINEER-FEEDER LOADER [address] [place] [address] [place] [phone] [facility] Physicians Family MedicineStart: 48-78-5908Wginukejti ScreeningDepression ScreeningSelect Medical [facility]Health Rehabilitation Hospital SystemStart: 28-81-5497Wmzcepgyd for malignant neoplasm of cervixPap SmearSelect Medical TriHealth Rehabilitation Hospital SystemStart: 17-28-2661OFuQ,Tdap and Td Vaccines (1 - Tdap)DTaP,Tdap and Td Vaccines (1 - Tdap)[facility] SystemStart: 73-63-2289Rwdgy BMI Follow Up PlanAdult BMI Follow Up PlanSelect Medical TriHealth Rehabilitation Hospital System End: 15-34-3728XIP W Auto Differential panel - BloodCBC auto differential Lab Routine Health care maintenance Anemia, unspecified type 1 Occurrences starting 11/11/2023 until 11/10/2024[facility] SystemComment on above:1 Occurrences starting 11/11/2023 until 11/10/2024 End: 80-91-8055ZQH W Auto Differential panel - BloodCBC auto differential Lab Routine Healthcare maintenance Anemia, unspecified type 1 Occurrences starting 10/18/2024 until 10/18/2025[facility] SystemComment on above:1 Occurrences starting 10/18/2024 until 10/18/2025 End: 43-38-0718Mptudwdcozryo metabolic 2000 panel - Serum or PlasmaComprehensive metabolic panel Lab Routine Health care maintenance 1 Occurrences starting 11/11/2023until 11/10/2024[facility] Work Phone: Comment on above:1 Occurrences starting 11/11/2023 until 11/10/2024 End: 51-63-0066Pmiacmkqfprig metabolic 2000 panel - Serum or PlasmaComprehensive metabolic panel Lab Routine Healthcare maintenance 1 Occurrences starting 10/18/2024 until 10/18/2025[facility] SystemComment on above:1 Occurrences starting 10/18/2024 until 10/18/2025 End: 84-34-5346Dseqobsdvwcflo vitamin b-12Vitamin B12 Lab Routine Healthcare maintenance Paresthesia 1 Occurrences starting 10/18/2024 until 10/18/2025 [facility] SystemComment on above:1 Occurrences starting 10/18/2024 until 10/18/2025ytology Cervical or vaginal smear or scraping studyPap Smear Pathology and Cytology Routine Well woman exam with routine gynecological exam Ordered: 12/30/2023[facility] [employer] Work Phone: comment on above:Ordered: 12/30/2023 End: 82-29-2040Sbwitsjj [Mass/volume] in Serum or PlasmaFerritin Lab Routine Health care maintenance Anemia, unspecified type 1 Occurrences starting 024 until 11/10/2024[facility] [place] SystemComment on above:1 Occurrences starting 11/11/2023 until 11/10/2024Human papilloma virus DNA [Presence] in Unspecified specimen by Probe with amplificationHPV DNA probe, amplified Microbiology Routine Well woman exam with routine gynecological exam Ordered: 12/30/2023[facility] [employer] GeneticsComment on above:Ordered: 12/30/2023 End: 53-14-4031Nsyw and TIBCIron and TIBC Lab Routine Health care maintenance Anemia, unspecified type 1 Occurrences starting 11/11/2023 until 11/10/2024 [facility] [place] SystemComment on above:1 Occurrences starting 11/11/2023 until 11/10/2024 End: 08-93-0042Lsfo and TIBCIron and TIBC Lab Routine Healthcare maintenance Anemia, unspecified type 1 Occurrences starting 10/18/2024 until 10/18/2025 [facility] [place] SystemComment on above:1 Occurrences starting 10/18/2024 until 10/18/2025 End: 05-58-3708Dgstw 1996 panel - Serum or PlasmaLipid profile Lab Routine Health care maintenance 1 Occurrences starting 11/11/2023 until 11/10/2024 [facility] [place]á SystemComment on above:1 Occurrences starting 11/11/2023 until 11/10/2024 End: 19-07-1565Wzbzv panelLipid panel Lab Routine Healthcare maintenance Encounter for lipid screening for cardiovascular disease 1 Occurrences starting 10/18/2024 until 10/18/2025[facility] HospitalWho [facility] Around You Work Phone: Comment on above:1 Occurrences starting 10/18/2024 until 10/18/2025 End: [id number] with ReflexTSH with Reflex Lab Routine Health care maintenance Fatigue, unspecified type 1 Occurrences starting 11/11/2023 until 11/10/2024[facility] SystemComment on above:1 Occurrences starting 11/11/2023 until 11/10/2024 End: 69-82-0131Bukcqfo D 25 hydroxyVitamin D 25 hydroxy Lab Routine Healthcare maintenance Fatigue, unspecified type Paresthesia 1 Occurrences starting 10/18/2024 until 10/18/2025[facility] SystemComment on above:1 Occurrences starting 10/18/2024 until 10/18/2025 Immunizations Immunization DateImmunizationNotesCare ProviderFacilityNEGATED: Highlighted row has not occurred!96-69-5393isfuvraqm, injectable, quadrivalent, preservative freeAlexandra Reyes VIDEO GAME ENGINEER-FEEDER LOADER Work Phone: [facility] HospitalL[facility] SystemComment on above:Deferred: Patient RefusedNEGATED: Highlighted row has not occurred!57-48-5532wyphqsyor, injectable, quadrivalent, preservative freeAlexandra Reyes VIDEO GAME ENGINEER-FEEDER LOADER Work Phone: [facility] SystemComment on above:Deferred: Patient decision Payers DatePayer CategoryPayerPolicy [id number] PPO[facility]M Member Subscriber Plan / Payer (Effective 2022-Present) Name: Eli Leahy MemberID: [id number] Relation to Subscriber: Spouse Name: Rudolph Leahy Date of : 1995 Address: [address] [place] [address] Payer ID: [id number] (NAIC) Group ID: [id number] Type: Not on file Address: [facility] [address] [place] [id number] 1.2.840.830903.1.13.693.2.7.3.419[id number] 2.16.840.1.038555.3.57[id number] 2.16840.1.326344.3.57[id number] 2.16840.1.539294.3.57[id number] 2.16840.1.322885.3.57[id number] 2.840.1.881272.3.57[id number] 2.0.1.502698.3.57[id number] 2.840.1.154296.3.57[id number] 2.0.1.186169.3.57[id number] 2.0.1.232074.3.57[id number] 2.0.1.474085.3.57[id number] 2.0.1.660490.3.57[id number] 2.0.1.971916.3.57[id number] 2.840.1.552618.3.57[id number] 2.0.1.515513.3.579.[id number] 2.840.1.307493.3.579.[id number] 2.840.1.088467.3.57[id number] 2.16840.1.448053.3.579.[id number] 2.16840.1.532549.3.579.[id number] 2.16840.1.272855.3.57[id number] 2.16840.1.450712.3.57[id number] 2.840.1.119624.3.579.2.[id number] 2.0.1.502558.3.57[id number] 2.0.1.777686.3.57[id number] 2.840.1.834650.3.579.[id number] 2.840.1.536024.3.579.[id number] 2.0.1.501539.3.57[id number] 2.0.1.880166.3.57[id number] 2.840.1.099014.3.579.2.641227-30-8074Woea-gmc26675859200-02-9768Rbui-exh [id number]-7999ZizyenuHJC604D1038519-18-8601Wmddmsd [id number] Social History DateTypeDetailFacilityStart: 10-01-2022 End: 34-44-6465[place] smoking status NHISNever smoked tobaccoNOMS Healthcare Start: 12-01-2023 End: 59-93-1562Xcstcbzpn beverage intakeEx-drinker (finding)[facility] Start: 05-10-2020 End: 91-03-2129Vfhvuco of Social functionSelect Medical TriHealth Rehabilitation Hospital SystemStart: 05-10-2020 End: 74-08-4790Lrqdvnv use panelSelect Medical TriHealth Rehabilitation Hospital SystemStart: 09-82-8197Fdk assigned at birthNot on fileSelect Medical TriHealth Rehabilitation Hospital SystemStart: 54-36-3376Qxclbuo use and exposureSmokeless tobacco non-userSelect Medical TriHealth Rehabilitation Hospital SystemStart: 04-25-2024 End: 41-00-9407Fajvprsrq beverage intakeCurrent non-drinker of alcohol (finding) [facility] HospitalFrequency of Alcohol ConsumptionNeverLima Memorial HospitalHow hard is it for you to pay for the very basics like food, housing, medical care, and heatingSomewhat hardMission Family Health Centertart: 11-02-2014 SexFemale (finding)[facility] HospitalHow often do you have a drink containing alcohol?NeverLima Memorial Hospital Functional Status QrxsIayaivmahfMxvevpOzmezksb92-04-5311Nckekwrwqgd anxiety disorder 7 item (MONICA-7)[facility] Clinical Notes 02-03-2022 to 02-03-2025 Note Date & TuxzXqxcUpwiwpsf45-89-1818 History of Present illness Narrative* Becky Reece APRN-FEEDER LOADER - 02/03/2025 9:40 AM EST Subjective Patient ID: Eli Leahy is a 34 y.o. female. Chief Complaint Chief Complaint Patient presents with Follow-up Right ear pain that comes and goes, dizziness is gone HPI HPI Patient reports intermittent dizziness we started more than 4 years ago but has been intermittent. Presently the dizziness has improved. However this dizziness goes and comes back. It started when her daughter was 9-month-old and the daughter is presently 5 years old. She has also been experiencingbilateral ear pain that radiates downward to her jaw. She recently was treated for ear infection inSeptember. She has completed her antibiotics but reports that she has continued to get intermittentear pain that is sudden, severe and last for less than a minute. A few weeks ago she had sudden loss of hearing on the right ear, everything sounded muffled. The ear pain has been occurring since thelast 1 year. She has never seen an ENT. 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 She has always passed the hearing test. There is no fever and no ear drainage. She has a lot of neck pain when she had the ear infection. But the neck pain has resolved. Active Problems Patient Active Problem List Diagnosis Moderate persistent asthma with acute exacerbation Absolute anemia Acute otitis externa of left ear Ear congestion, left BRENTON (obstructive sleep apnea) Acute bilateral low back pain without sciatica Acute pain of left knee Past Medical History Past Medical History: Diagnosis Date Allergic rhinitis Asthma Hernia, hiatal Visual disturbance Past Surgical History Past Surgical History: Procedure Laterality Date SECTION Family History Family History Problem Relation Age of Onset No Known Problems Mother No Known Problems Father Multiple myeloma Maternal Grandfather Bone cancer Maternal Grandfather Social History Social History Socioeconomic History Marital status: Spouse name: Not on file Number of children: Not on file Years of education: Not on file Highest education level: Not on file Occupational History Not on file Tobacco Use Smoking status: Never Smokeless tobacco: Never Vaping Use Vaping status: Never Used Substance and Sexual Activity Alcohol use: No Alcohol/week: 0.0 standard drinks of alcohol Drug use: No Sexual activity: Not Currently Partners: Male control/protection: None Other Topics Concern Not on file Social History Narrative Not on file Social Drivers of Health Financial Resource Strain: Medium Risk (06/11/2023) Overall Financial Resource Strain (CARDIA) Difficulty of Paying Living Expenses: Somewhat hard Food Insecurity: No Food Insecurity (02/03/2025) Hunger Screening Food Insecurity - Worry: Never True Food Insecurity - Inability: Never True Transportation Needs: No Transportation Needs (06/11/2023) PRAPARE - Transportation Lack of Transportation (Medical): No Lack of Transportation (Non-Medical): No Physical Activity: Not on file Stress: Not on file Social Connections: Not on file Interpersonal Safety: Not on file Housing Instability: Low Risk (06/11/2023) Housing Instability Housing Instability: No Allergies Allergies Allergen Reactions Shellfish Derived Shortness Of Breath Current Medications Current Outpatient Medications Medication Sig Dispense Refill albuterol (PROVENTIL HFA;VENTOLIN HFA) 90 mcg/actuation inhaler Inhale 2 puffs every 4 (four) hoursas needed for wheezing or shortness of breath. 18 g 2 albuterol (PROVENTIL,VENTOLIN) 2.5 mg /3 mL (0.083 %) nebulizer solution Inhale 3 mL (2.5 mg total)by nebulization every 4 (four) hours as needed for wheezing or shortness of breath. 75 mL 2 cholecalciferol 25 mcg (1,000 unit) tablet Take 1 tablet (1,000 Units total) by mouth in the morning. cholecalciferol, vitamin D3, (VITAMIN D3) 5,000 units tablet Take 1 tablet (5,000 Units total) by mouth in the morning. 90 tablet 0 ferrous sulfate 325 (65 FE) MG tablet TAKE 1 TABLET BY MOUTH IN THE MORNING AND IN THE EVENING. TAKE WITH MEALS. DO ALL THIS FOR 30 DAYS. 180 tablet 5 fluticasone propion-salmeteroL (WIXELA INHUB) 250-50 mcg/dose DISKUS Inhale 1 puff in the morning and at bedtime. fluticasone propionate (FLONASE) 50 mcg/actuation nasal spray SPRAY 2 SPRAYS INTO EACH NOSTRIL IN THE MORNING 48 mL 1 guaiFENesin (MUCINEX) 600 mg tablet extended release 12hr Take 1 tablet (600 mg total) by mouth every 12 (twelve) hours. 30 tablet 0 loratadine (CLARITIN) 10 mg tablet TAKE 1 TABLET (10 MG TOTAL) BY MOUTH IN THE MORNING 90 tablet 1 meclizine (ANTIVERT) 12.5 mg tablet Take 1 tablet (12.5 mg total) by mouth in the morning and 1 tablet (12.5 mg total) before bedtime. 60 tablet 1 montelukast (SINGULAIR) 5 mg chewable tablet Chew 1 tablet (5 mg total) and swallow nightly. ondansetron (ZOFRAN) 4 mg tablet Take 1 tablet (4 mg total) by mouth every 8 (eight) hours as needed for nausea or vomiting. 20 tablet 0 polycarbophil (FIBERCON) 625 mg tablet Take 1 tablet (625 mg total) by mouth in the morning. 30 tablet 2 sertraline (ZOLOFT) 25 mg tablet Take 1 tablet (25 mg total) by mouth in the morning. 90 tablet 1 No current facility-administered medications for this visit. Review of Systems Review of Systems Constitutional: Positive for activity change. Negative for appetite change, chills, fatigue and fever. HENT: Positive for ear pain. Negative for congestion, dental problem, drooling, ear discharge, hearing loss, nosebleeds, postnasal drip, sinus pain and sore throat. Eyes: Negative for photophobia, pain, discharge and visual disturbance. Respiratory: Negative for cough, chest tightness, shortness of breath and wheezing. Cardiovascular: Negative for chest pain and palpitations. Gastrointestinal: Negative for abdominal distention, abdominal pain, constipation, nausea and vomiting. Endocrine: Negative for cold intolerance and heat intolerance. Genitourinary: Negative for decreased urine volume, difficulty urinating, dyspareunia, dysuria, flank pain, hematuria, vaginal discharge and vaginal pain. Musculoskeletal: Negative for arthralgias, back pain, myalgias and neck stiffness. Skin: Negative. Negative for color change and rash. Allergic/Immunologic: Negative for environmental allergies and food allergies. Neurological: Positive for dizziness. Negative for tremors, seizures, syncope, light-headedness andheadaches. Hematological: Negative. Psychiatric/Behavioral: Negative for agitation, behavioral problems, sleep disturbance and suicidalideas. All other systems reviewed and are negative. Objective Vitals BP 118/72 (BP Site: Left Arm, BP Postition: Sitting) Pulse 81 Temp 36.4 C (97.6 F) (Oral) Ht 170.2 cm (5' 7.01 ) Wt 130.5 kg (287 lb 9.6 oz) SpO2 98% BMI 45.03 kg/m Physical Exam Physical Exam Vitals and nursing note reviewed. Constitutional: Appearance: Normal appearance. HENT: Head: Normocephalic. Right Ear: Hearing, tympanic membrane, ear canal and external ear normal. No decreased hearing noted. No laceration, drainage, swelling or tenderness. No middle ear effusion. There is no impacted cerumen. Tympanic membrane is not injected, scarred, perforated, erythematous, retracted or bulging. Tympanic membrane has normal mobility. Left Ear: Hearing, tympanic membrane, ear canal and external ear normal. No decreased hearing noted. No laceration, drainage, swelling or tenderness. No middle ear effusion. There is no impacted cerumen. Tympanic membrane is not injected, scarred, perforated, erythematous, retracted or bulging. Tympanic membrane has normal mobility. Nose: Nose normal. No nasal tenderness, mucosal edema, congestion or rhinorrhea. Right Turbinates: Not enlarged, swollen or pale. Left Turbinates: Not enlarged, swollen or pale. Right Sinus: No maxillary sinus tenderness or frontal sinus tenderness. Left Sinus: No maxillary sinus tenderness or frontal sinus tenderness. Mouth/Throat: Mouth: Mucous membranes are moist. Pharynx: No pharyngeal swelling, oropharyngeal exudate, posterior oropharyngeal erythema, uvula swelling or postnasal drip. Tonsils: No tonsillar exudate or tonsillar abscesses. Eyes: General: Lids are normal. Extraocular Movements: Right eye: Normal extraocular motion and no nystagmus. Left eye: Normal extraocular motion and no nystagmus. Conjunctiva/sclera: Conjunctivae normal. Right eye: Right conjunctiva is not injected. Left eye: Left conjunctiva is not injected. Neck: Thyroid: No thyroid mass, thyromegaly or thyroid tenderness. Cardiovascular: Rate and Rhythm: Normal rate and regular rhythm. Pulses: Dorsalis pedis pulses are 2+ on the right side and 2+ on the left side. Posterior tibial pulses are 2+ on the right side and 2+ on the left side. Heart sounds: Normal heart sounds, S1 normal and S2 normal. Pulmonary: Effort: Pulmonary effort is normal. Breath sounds: Normal breath sounds. No decreased breath sounds, wheezing, rhonchi or rales. Abdominal: General: Bowel sounds are normal. Palpations: Abdomen is soft. Tenderness: There is no abdominal tenderness. There is no right CVA tenderness or left CVA tenderness. Musculoskeletal: Cervical back: Normal range of motion. Right lower leg: No edema. Left lower leg: No edema. Skin: General: Skin is warm. Neurological: Mental Status: She is alert and oriented to person, place, and time. Psychiatric: Attention and Perception: Attention and perception normal. Mood and Affect: Mood and affect normal. Speech: Speech normal. Behavior: Behavior normal. Behavior is cooperative. Thought Content: Thought content normal. Cognition and Memory: Cognition and memory normal. Judgment: Judgment normal. Assessment/Plan 1. Ear pain, bilateral - [facility] - [place], [place]; Future 2. Dizziness - [facility] - [place], [place]; Future Orders Placed This Encounter Procedures [facility] - [place], [place] Patient was seen today she has intermittent dizziness that has lasted more than 4 years and ear pain that started about a year ago. I do feel like this patient will need evaluated by ENT Plan Will send her to an ENT for evaluation of dizziness and intermittent ear pain Side effects of prescribed medications reviewed with the patient. All the pertinent questions were answered. Return in about 4 months (around 06/03/2025) for ear pain and dizziness. This note is created with the assistance of a speech recognition program. While intending to generate a document that actually reflects the content of the visit, the document can still have some errors including those of syntax and sound a like substitutions which may escape proof reading. It such instances, actual meaning can be extrapolated by contextual diversion. ERON Barrett 02/03/25 1307 documented in this encounterLima [facility] Hospital10-24-2025 History of Present illness Narrative* ERON Barrett - 01/20/2025 10:00 AM EDT Subjective Patient ID: Eli Leahy is a 34 y.o. female. Chief Complaint Chief Complaint Patient presents with Follow-up GI issues-taking medication once a day and feeling better. Nasal Congestion Chest Congestion sick for 5 days started with sore throat on Thursday. Having clear drainage, children have been sick. HPI URI This is a new (Children were sick recently.) problem. The current episode started in the past 7 days (onset of symptoms was Thursday with a ticle on the throat, then congestion the next day and worsening as the days went by.). The problem has been gradually worsening. Associated symptoms include congestion, coughing, headaches (headache better), rhinorrhea, sneezing and wheezing. Pertinent negatives include no abdominal pain, chest pain, diarrhea, dysuria, ear pain, joint pain, joint swelling, nausea, neck pain, plugged ear sensation, rash, sinus pain, sore throat, swollen glands or vomiting. She has tried acetaminophen (lemon tea water. 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 The treatment provided mild (Patient has history of asthma) relief. Active Problems Patient Active Problem List Diagnosis Moderate persistent asthma with acute exacerbation Absolute anemia Acute otitis externa of left ear Ear congestion, left BRENTON (obstructive sleep apnea) Acute bilateral low back pain without sciatica Acute pain of left knee Past Medical History Past Medical History: Diagnosis Date Allergic rhinitis Asthma Hernia, hiatal Visual disturbance Past Surgical History Past Surgical History: Procedure Laterality Date SECTION Family History Family History Problem Relation Age of Onset No Known Problems Mother No Known Problems Father Multiple myeloma Maternal Grandfather Bone cancer Maternal Grandfather Social History Social History Socioeconomic History Marital status: Spouse name: Not on file Number of children: Not on file Years of education: Not on file Highest education level: Not on file Occupational History Not on file Tobacco Use Smoking status: Never Smokeless tobacco: Never Vaping Use Vaping status: Never Used Substance and Sexual Activity Alcohol use: No Alcohol/week: 0.0 standard drinks of alcohol Drug use: No Sexual activity: Not Currently Partners: Male control/protection: None Other Topics Concern Not on file Social History Narrative Not on file Social Drivers of Health Financial Resource Strain: Medium Risk (06/11/2023) Overall Financial Resource Strain (CARDIA) Difficulty of Paying Living Expenses: Somewhat hard Food Insecurity: No Food Insecurity (12/23/2024) Hunger Screening Food Insecurity - Worry: Never True Food Insecurity - Inability: Never True Transportation Needs: No Transportation Needs (06/11/2023) PRAPARE - Transportation Lack of Transportation (Medical): No Lack of Transportation (Non-Medical): No Physical Activity: Not on file Stress: Not on file Social Connections: Not on file Interpersonal Safety: Not on file Housing Instability: Low Risk (06/11/2023) Housing Instability Housing Instability: No Allergies Allergies Allergen Reactions Shellfish Derived Shortness Of Breath Current Medications Current Outpatient Medications Medication Sig Dispense Refill albuterol (PROVENTIL HFA;VENTOLIN HFA) 90 mcg/actuation inhaler Inhale 2 puffs every 4 (four) hoursas needed for wheezing or shortness of breath. 18 g 2 albuterol (PROVENTIL,VENTOLIN) 2.5 mg /3 mL (0.083 %) nebulizer solution Inhale 3 mL (2.5 mg total)by nebulization every 4 (four) hours as needed for wheezing or shortness of breath. 75 mL 2 cholecalciferol, vitamin D3, (VITAMIN D3) 5,000 units tablet Take 1 tablet (5,000 Units total) by mouth in the morning. 90 tablet 0 ferrous sulfate 325 (65 FE) MG tablet TAKE 1 TABLET BY MOUTH IN THE MORNING AND IN THE EVENING. TAKE WITH MEALS. DO ALL THIS FOR 30 DAYS. 180 tablet 5 fluticasone propion-salmeteroL (WIXELA INHUB) 250-50 mcg/dose DISKUS Inhale 1 puff in the morning and at bedtime. fluticasone propionate (FLONASE) 50 mcg/actuation nasal spray SPRAY 2 SPRAYS INTO EACH NOSTRIL IN THE MORNING 48 mL 1 guaiFENesin (MUCINEX) 600 mg tablet extended release 12hr Take 1 tablet (600 mg total) by mouth every 12 (twelve) hours. 30 tablet 0 loratadine (CLARITIN) 10 mg tablet TAKE 1 TABLET (10 MG TOTAL) BY MOUTH IN THE MORNING 90 tablet 1 meclizine (ANTIVERT) 12.5 mg tablet Take 1 tablet (12.5 mg total) by mouth in the morning and 1 tablet (12.5 mg total) before bedtime. 60 tablet 1 montelukast (SINGULAIR) 5 mg chewable tablet Chew 1 tablet (5 mg total) and swallow nightly. ondansetron (ZOFRAN) 4 mg tablet Take 1 tablet (4 mg total) by mouth every 8 (eight) hours as needed for nausea or vomiting. 20 tablet 0 polycarbophil (FIBERCON) 625 mg tablet Take 1 tablet (625 mg total) by mouth in the morning. 30 tablet 2 benzonatate (TESSALON PERLES) 100 mg capsule Take 1 capsule (100 mg total) by mouth 3 (three) timesa day as needed for cough. 30 capsule 0 methylPREDNISolone (MEDROL, KADEN,) 4 mg tablet Take 1 tablet (4 mg total) by mouth in the morning. follow package directions. 21 tablet 0 sertraline (ZOLOFT) 25 mg tablet Take 1 tablet (25 mg total) by mouth in the morning. 90 tablet 1 No current facility-administered medications for this visit. Review of Systems Review of Systems Constitutional: Negative for activity change, appetite change, fatigue and unexpected weight change. HENT: Positive for congestion, rhinorrhea and sneezing. Negative for dental problem, ear pain, hearing loss, postnasal drip, sinus pain, sore throat and trouble swallowing. Eyes: Negative for photophobia, discharge and visual disturbance. Respiratory: Positive for cough, shortness of breath and wheezing. Negative for apnea, choking and chest tightness. A lot of wheezing worse in the morning Cardiovascular: Negative for chest pain, palpitations and leg swelling. Gastrointestinal: Negative for abdominal distention, abdominal pain, constipation, diarrhea, nauseaand vomiting. Endocrine: Negative for cold intolerance, heat intolerance, polydipsia, polyphagia and polyuria. Genitourinary: Negative for difficulty urinating and dysuria. Musculoskeletal: Negative for back pain, joint pain, myalgias, neck pain and neck stiffness. Skin: Negative. Negative for color change and rash. Allergic/Immunologic: Negative for environmental allergies and food allergies. Neurological: Positive for headaches (headache better). Negative for dizziness and weakness. Hematological: Negative. Psychiatric/Behavioral: Negative for agitation, behavioral problems, dysphoric mood, sleep disturbance and suicidal ideas. The patient is not nervous/anxious. Objective Vitals BP 124/68 (BP Site: Left Arm, BP Postition: Sitting) Pulse 84 Temp 36.9 C (98.4 F) (Oral) Ht 170.2 cm (5' 7.01 ) Wt 131.2 kg (289 lb 3.2 oz) SpO2 98% BMI 45.28 kg/m Physical Exam Physical Exam Vitals and nursing note reviewed. Constitutional: Appearance: Normal appearance. HENT: Head: Normocephalic. Right Ear: Hearing, tympanic membrane, ear canal and external ear normal. No decreased hearing noted. No laceration, drainage, swelling or tenderness. No middle ear effusion. There is no impacted cerumen. Tympanic membrane is not injected, scarred, perforated, erythematous, retracted or bulging. Tympanic membrane has normal mobility. Left Ear: Hearing, tympanic membrane, ear canal and external ear normal. No decreased hearing noted. No laceration, drainage, swelling or tenderness. No middle ear effusion. There is no impacted cerumen. Tympanic membrane is not injected, scarred, perforated, erythematous, retracted or bulging. Tympanic membrane has normal mobility. Nose: Nose normal. No nasal tenderness, mucosal edema, congestion or rhinorrhea. Right Turbinates: Not enlarged, swollen or pale. Left Turbinates: Not enlarged, swollen or pale. Right Sinus: No maxillary sinus tenderness or frontal sinus tenderness. Left Sinus: No maxillary sinus tenderness or frontal sinus tenderness. Mouth/Throat: Mouth: Mucous membranes are moist. Pharynx: No pharyngeal swelling, oropharyngeal exudate, posterior oropharyngeal erythema, uvula swelling or postnasal drip. Tonsils: No tonsillar exudate or tonsillar abscesses. Eyes: General: Lids are normal. Extraocular Movements: Right eye: Normal extraocular motion and no nystagmus. Left eye: Normal extraocular motion and no nystagmus. Conjunctiva/sclera: Conjunctivae normal. Right eye: Right conjunctiva is not injected. Left eye: Left conjunctiva is not injected. Neck: Thyroid: No thyroid mass, thyromegaly or thyroid tenderness. Cardiovascular: Rate and Rhythm: Normal rate and regular rhythm. Pulses: Dorsalis pedis pulses are 2+ on the right side and 2+ on the left side. Posterior tibial pulses are 2+ on the right side and 2+ on the left side. Heart sounds: Normal heart sounds, S1 normal and S2 normal. Pulmonary: Effort: Pulmonary effort is normal. Breath sounds: Normal breath sounds. No decreased breath sounds, wheezing, rhonchi or rales. Abdominal: General: Bowel sounds are normal. Palpations: Abdomen is soft. Tenderness: There is no abdominal tenderness. There is no right CVA tenderness or left CVA tenderness. Musculoskeletal: Cervical back: Normal range of motion. Right lower leg: No edema. Left lower leg: No edema. Skin: General: Skin is warm. Neurological: Mental Status: She is alert and oriented to person, place, and time. Psychiatric: Attention and Perception: Attention and perception normal. Mood and Affect: Mood and affect normal. Speech: Speech normal. Behavior: Behavior normal. Behavior is cooperative. Thought Content: Thought content normal. Cognition and Memory: Cognition and memory normal. Judgment: Judgment normal. Assessment/Plan 1. Mild persistent asthma with exacerbation - methylPREDNISolone (MEDROL, KADEN,) 4 mg tablet; Take 1 tablet (4 mg total) by mouth in the morning. follow package directions. Dispense: 21 tablet; Refill: 0 - benzonatate (TESSALON PERLES) 100 mg capsule; Take 1 capsule (100 mg total) by mouth 3 (three) times a day as needed for cough. Dispense: 30 capsule; Refill: 0 2. Upper respiratory infection, viral - methylPREDNISolone (MEDROL, KADEN,) 4 mg tablet; Take 1 tablet (4 mg total) by mouth in the morning. follow package directions. Dispense: 21 tablet; Refill: 0 - benzonatate (TESSALON PERLES) 100 mg capsule; Take 1 capsule (100 mg total) by mouth 3 (three) times a day as needed for cough. Dispense: 30 capsule; Refill: 0 3. Anxiety - sertraline (ZOLOFT) 25 mg tablet; Take 1 tablet (25 mg total) by mouth in the morning. Dispense: 90 tablet; Refill: 1 No orders of the defined types were placed in this encounter. Patient reports low respiratory symptoms. Her children were sick recently and she thinks she may have contacted something from them. She will be treated for asthma exacerbation as well as upper respiratory infection Plan Continue inhalers Wixela and albuterol Continue Singulair Will add Medrol Dosepak because of the wheezing Will add Tessalon for cough Increase fluid intake Continue lemon and honey tea Side effects of prescribed medications reviewed with the patient. All the pertinent questions were answered. Return if symptoms worsen or fail to improve, for asthma exacerbation. This note is created with the assistance of a speech recognition program. While intending to generate a document that actually reflects the content of the visit, the document can still have some errors including those of syntax and sound a like substitutions which may escape proof reading. It such instances, actual meaning can be extrapolated by contextual diversion. ERON Barrett 01/20/25 1022 [facility] Miscellaneous Notes* Telephone Encounter - Linnea Stevenson CNA - 01/09/2025 3:19 PM EDT Patient called office about her FMLA form that we need to complete on our end * Telephone Encounter - Linnea Stevenson CNA - 01/09/2025 3:19 PM EDT FMLA form being faxed over documented in this [facility]10-13-2025 Telephone encounter Note* Telephone Encounter - Linnea Stevenson CNA - 01/09/2025 3:19 PM EDT Patient called office about her FMLA form that we need to complete on our end [facility]10-13-[facility] Telephone encounter Note* Telephone Encounter - Linnea Stevenson CNA - 01/09/2025 3:19 PM EDT FMLA form being faxed over [facility]10-[facility] Miscellaneous Notes* Telephone Encounter - Linnea Stevenson CNA - 01/04/2025 9:46 AM EDT Attempted to call patient to reschedule, left VM to call office back [facility] Telephone encounter Note* Telephone Encounter - Linnea Stevenson CNA - 01/04/2025 9:46 AM EDT Attempted to call patient to reschedule, left VM to call office back [facility]09-[facility] History of Present illness Narrative* Becky Reece APRN-BETTIE - 12/23/2024 10:00 AM EDT Subjective Patient ID: Eli Leahy is a 34 y.o. female. Chief Complaint Chief Complaint Patient presents with Follow-up HPI Patient was seen today due to multiple symptoms including chest pain, anxiety, vertigo, ear pain and thyroid issues. She has been having intermittent chest pain which radiates to the left arm and theback. She was seen and evaluated in the ER and all her testing were negative. However patient states that she is very concerned about this chest pain and will like to get a stress test because she isworried that she may have something going on in her heart. The result of the recent cardiac workup done in the ER was done with patient during this appointment. Her CBC, CMP, BNP, PT INR, APTT, D-dimer, troponin and magnesium were all within normal range except for slight low MCH. She reports history of hernia. EKG: Sinus rhythm . Left axis deviation . Low voltage, precordial leads . RSR' in V1 or V2, probably normal varian She had a recent chest x-ray which was negative done on 11/29/2024. Patient also reports that her chest pain seems to happen or get worse when she is anxious or stressed. Her anxiety has been getting worse lately. Sometimes her anxiety will precipitate dizziness, make her feel lightheaded, nausea and sometimes she is afraid of doing some activities with her family when she is very anxious example when she went to the is a with her family she suddenly started getting very anxious with palpitation and had difficulties continuing with dizzy experience. Patient reports of vertigo, she has had varicose of for so many years. But she feels like the vertigo has been getting worse lately and causing her nausea. She is presently on meclizine but states that the meclizine next her very tired and groggy. When she took the meclizine yesterday she ended up being very tired all day. She reports ear pain, especially the right ear. Sometimes the ear pops and there is reduced hearing. There was no drainage, no fever. Patient had abnormal thyroid profile in October with low TSH. But the free T4 was within normal range. She also had low vitamin-D levels. The result was discussed with her during this appointment. Eply maneuver was negative. Anxiety Presents for initial visit. Onset was more than 5 years ago. Symptoms include chest pain, depressedmood (post after first baby but did not take medication), dizziness, excessive worry, hyperventilation, irritability, nausea, nervous/anxious behavior, palpitations (when she gets anxious), panic and shortness of breath. Patient reports no compulsions, confusion, decreased concentration, drymouth, feeling of choking, impotence, insomnia, malaise, muscle tension, restlessness or suicidal ideas. Primary symptoms comment: dizziness. Has history of vertigo since last year, brain fog, cant think at times and has headache. Neck pain yesterday when she has dizzy spell.. Symptoms occur occasionally (went to [facility] and they have to stop because she was getting very anxious, nausea and dizzy). The severity of symptoms is severe and incapacitating. Risk factors include family history. Her past medical history is significant for anxiety/panic attacks. There is no history of bipolar disorder, CAD, CHF, hyperthyroidism or suicide attempts. Past treatments include nothing. Chest Pain This is a new problem. The current episode started 1 to 4 weeks ago. The problem occurs intermittently. The problem has been waxing and waning. Pain location: left side of the chest. startes at the side of the breast and then goes to the left side. The pain is at a severity of 5/10. The pain is moderate. The quality of the pain is described as sharp. The pain radiates to the left shoulder, left neck and upper back. Associated symptoms include back pain, diaphoresis, dizziness, nausea, palpitations (when she gets anxious) and shortness of breath. Pertinent negatives include no abdominal pain, claudication, cough, exertional chest pressure, fever, headaches, hemoptysis, irregular heartbeat, leg pain, lower extremity edema, malaise/fatigue, near-syncope, numbness, orthopnea, PND, sputum production, syncope, vomiting or weakness. The pain is aggravated by emotional upset (sometimes the painis random). She has tried NSAIDs for the symptoms. The treatment provided moderate relief. Risk factors include obesity. Her past medical history is significant for anxiety/panic attacks. Pertinent negatives for past medical history include no aortic aneurysm, no aortic dissection, no CAD, no hypertension, no pacemaker, no rheumatic fever, Wu syndrome and no valve disorder. Past medical history comments: mother has severe anxiety Her family medical history is significant for CAD (grand father had a heart attack), heart disease and sudden (grandfather had a heart attack). Pertinent negatives for family medical history include: no aortic dissection, no connective tissue disease, no diabetes, no hyperlipidemia, no hypertension, no Marfan's syndrome, no early NM, no PE, no PVD, no sickle cell disease, no stroke and no TIA. Prior workup: EKG, BNP Troponin. Active Problems Patient Active Problem List Diagnosis Moderate persistent asthma with acute exacerbation Absolute anemia Acute otitis externa of left ear Ear congestion, left BRENTON (obstructive sleep apnea) Acute bilateral low back pain without sciatica Acute pain of left knee Past Medical History Past Medical History: Diagnosis Date Allergic rhinitis Asthma Hernia, hiatal Visual disturbance Past Surgical History Past Surgical History: Procedure Laterality Date SECTION Family History Family History Problem Relation Age of Onset No Known Problems Mother No Known Problems Father Multiple myeloma Maternal Grandfather Bone cancer Maternal Grandfather Social History Social History Socioeconomic History Marital status: Spouse name: Not on file Number of children: Not on file Years of education: Not on file Highest education level: Not on file Occupational History Not on file Tobacco Use Smoking status: Never Smokeless tobacco: Never Vaping Use Vaping status: Never Used Substance and Sexual Activity Alcohol use: No Alcohol/week: 0.0 standard drinks of alcohol Drug use: No Sexual activity: Not Currently Partners: Male control/protection: None Other Topics Concern Not on file Social History Narrative Not on file Social Drivers of Health Financial Resource Strain: Medium Risk (06/11/2023) Overall Financial Resource Strain (CARDIA) Difficulty of Paying Living Expenses: Somewhat hard Food Insecurity: No Food Insecurity (12/23/2024) Hunger Screening Food Insecurity - Worry: Never True Food Insecurity - Inability: Never True Transportation Needs: No Transportation Needs (06/11/2023) PRAPARE - Transportation Lack of Transportation (Medical): No Lack of Transportation (Non-Medical): No Physical Activity: Not on file Stress: Not on file Social Connections: Not on file Interpersonal Safety: Not on file Housing Instability: Low Risk (06/11/2023) Housing Instability Housing Instability: No Allergies Allergies Allergen Reactions Shellfish Derived Shortness Of Breath Current Medications Current Outpatient Medications Medication Sig Dispense Refill albuterol (PROVENTIL HFA;VENTOLIN HFA) 90 mcg/actuation inhaler Inhale 2 puffs every 4 (four) hoursas needed for wheezing or shortness of breath. 18 g 2 albuterol (PROVENTIL,VENTOLIN) 2.5 mg /3 mL (0.083 %) nebulizer solution Inhale 3 mL (2.5 mg total)by nebulization every 4 (four) hours as needed for wheezing or shortness of breath. 75 mL 2 amoxicillin (AMOXIL) 500 mg capsule Take 1 capsule (500 mg total) by mouth in the morning and 1 capsule (500 mg total) before bedtime. Do all this for 7 days. 14 capsule 0 cholecalciferol, vitamin D3, (VITAMIN D3) 5,000 units tablet Take 1 tablet (5,000 Units total) by mouth in the morning. 90 tablet 0 ferrous sulfate 325 (65 FE) MG tablet TAKE 1 TABLET BY MOUTH IN THE MORNING AND IN THE EVENING. TAKE WITH MEALS. DO ALL THIS FOR 30 DAYS. 180 tablet 5 fluticasone propion-salmeteroL (WIXELA INHUB) 250-50 mcg/dose DISKUS Inhale 1 puff in the morning and at bedtime. fluticasone propionate (FLONASE) 50 mcg/actuation nasal spray SPRAY 2 SPRAYS INTO EACH NOSTRIL IN THE MORNING 48 mL 1 guaiFENesin (MUCINEX) 600 mg tablet extended release 12hr Take 1 tablet (600 mg total) by mouth every 12 (twelve) hours. 30 tablet 0 hydrOXYzine (ATARAX) 10 mg tablet Take 1 tablet (10 mg total) by mouth every 8 (eight) hours as needed for anxiety for up to 20 days. 30 tablet 0 loratadine (CLARITIN) 10 mg tablet TAKE 1 TABLET (10 MG TOTAL) BY MOUTH IN THE MORNING 90 tablet 1 meclizine (ANTIVERT) 12.5 mg tablet Take 1 tablet (12.5 mg total) by mouth in the morning and 1 tablet (12.5 mg total) before bedtime. 60 tablet 1 methylPREDNISolone (MEDROL, KADEN,) 4 mg tablet Take 1 tablet (4 mg total) by mouth in the morning. follow package directions. (Patient not taking: Reported on 12/23/2024) 21 tablet 0 ondansetron (ZOFRAN) 4 mg tablet Take 1 tablet (4 mg total) by mouth every 8 (eight) hours as needed for nausea or vomiting. 20 tablet 0 pantoprazole (PROTONIX) 40 mg EC tablet Take 1 tablet (40 mg total) by mouth every morning before breakfast. TAKE 1 TABLET (40 MG TOTAL) BY MOUTH IN THE MORNING AND BEFORE BEDTIME 90 tablet 0 polycarbophil (FIBERCON) 625 mg tablet Take 1 tablet (625 mg total) by mouth in the morning. 30 tablet 2 sertraline (ZOLOFT) 25 mg tablet Take 1 tablet (25 mg total) by mouth in the morning. 30 tablet 2 No current facility-administered medications for this visit. Review of Systems Review of Systems Constitutional: Positive for activity change, diaphoresis, fatigue and irritability. Negative for appetite change, chills, fever and malaise/fatigue. HENT: Positive for ear pain. Negative for congestion, dental problem, drooling, ear discharge, hearing loss, nosebleeds, postnasal drip, sinus pain, sore throat and trouble swallowing. Eyes: Negative for photophobia, pain, discharge, redness and visual disturbance. Respiratory: Positive for shortness of breath. Negative for cough, hemoptysis, sputum production, chest tightness and wheezing. Cardiovascular: Positive for chest pain and palpitations (when she gets anxious). Negative for orthopnea, claudication, syncope, PND and near-syncope. Gastrointestinal: Positive for nausea. Negative for abdominal distention, abdominal pain, blood in stool, constipation and vomiting. Endocrine: Negative for cold intolerance and heat intolerance. Genitourinary: Negative for decreased urine volume, difficulty urinating, dyspareunia, dysuria, flank pain, hematuria, impotence, vaginal discharge and vaginal pain. Musculoskeletal: Positive for back pain. Negative for arthralgias, myalgias and neck stiffness. Skin: Negative. Negative for color change and rash. Allergic/Immunologic: Negative for environmental allergies and food allergies. Neurological: Positive for dizziness and light-headedness. Negative for tremors, syncope, weakness,numbness and headaches. Hematological: Negative. Psychiatric/Behavioral: Negative for agitation, behavioral problems, confusion, decreased concentration, dysphoric mood, sleep disturbance and suicidal ideas. The patient is nervous/anxious. The patient does not have insomnia. All other systems reviewed and are negative. Objective Vitals BP 116/78 (BP Site: Left Arm, BP Postition: Sitting) Pulse 67 Temp 36.7 C (98.1 F) (Oral) Ht 170.2 cm (5' 7.01 ) Wt 133.2 kg (293 lb 9.6 oz) SpO2 98% BMI 45.97 kg/m Physical Exam Physical Exam Vitals and nursing note reviewed. Constitutional: Appearance: Normal appearance. Comments: Patient appears tired HENT: Head: Normocephalic. Right Ear: Hearing, tympanic membrane and external ear normal. No decreased hearing noted. No laceration, drainage, swelling or tenderness. No middle ear effusion. There is no impacted cerumen. Tympanic membrane is not injected, scarred, perforated, retracted or bulging. Tympanic membrane has normal mobility. Left Ear: Hearing, tympanic membrane, ear canal and external ear normal. No decreased hearing noted. No laceration, drainage, swelling or tenderness. No middle ear effusion. There is no impacted cerumen. Tympanic membrane is not injected, scarred, perforated, erythematous, retracted or bulging. Tympanic membrane has normal mobility. Ears: Comments: There was redness in the right ear canal. No injection of the tympanic membrane and no drainage of the ear seen. Nose: Nose normal. No nasal tenderness, mucosal edema, congestion or rhinorrhea. Right Turbinates: Not enlarged, swollen or pale. Left Turbinates: Not enlarged, swollen or pale. Right Sinus: No maxillary sinus tenderness or frontal sinus tenderness. Left Sinus: No maxillary sinus tenderness or frontal sinus tenderness. Mouth/Throat: Mouth: Mucous membranes are moist. Pharynx: No pharyngeal swelling, oropharyngeal exudate, posterior oropharyngeal erythema, uvula swelling or postnasal drip. Tonsils: No tonsillar exudate or tonsillar abscesses. Eyes: General: Lids are normal. Extraocular Movements: Right eye: Normal extraocular motion and no nystagmus. Left eye: Normal extraocular motion and no nystagmus. Conjunctiva/sclera: Conjunctivae normal. Right eye: Right conjunctiva is not injected. Left eye: Left conjunctiva is not injected. Neck: Thyroid: No thyroid mass, thyromegaly or thyroid tenderness. Cardiovascular: Rate and Rhythm: Normal rate and regular rhythm. Pulses: Dorsalis pedis pulses are 2+ on the right side and 2+ on the left side. Posterior tibial pulses are 2+ on the right side and 2+ on the left side. Heart sounds: Normal heart sounds, S1 normal and S2 normal. Pulmonary: Effort: Pulmonary effort is normal. Breath sounds: Normal breath sounds. No decreased breath sounds, wheezing, rhonchi or rales. Abdominal: General: Bowel sounds are normal. Palpations: Abdomen is soft. Tenderness: There is no abdominal tenderness. There is no right CVA tenderness or left CVA tenderness. Musculoskeletal: Cervical back: Normal range of motion. Right lower leg: No edema. Left lower leg: No edema. Skin: General: Skin is warm. Neurological: Mental Status: She is alert and oriented to person, place, and time. Comments: A shot Thien maneuver was done in the office but it was negative. Psychiatric: Attention and Perception: Attention and perception normal. Mood and Affect: Affect normal. Mood is anxious and depressed. Affect is not tearful or inappropriate. Speech: Speech normal. Behavior: Behavior normal. Behavior is cooperative. Thought Content: Thought content normal. Cognition and Memory: Cognition and memory normal. Judgment: Judgment normal. Assessment/Plan 1. Anxiety - sertraline (ZOLOFT) 25 mg tablet; Take 1 tablet (25 mg total) by mouth in the morning. Dispense: 30 tablet; Refill: 2 - hydrOXYzine (ATARAX) 10 mg tablet; Take 1 tablet (10 mg total) by mouth every 8 (eight) hours as needed for anxiety for up to 20 days. Dispense: 30 tablet; Refill: 0 2. Subclinical hypothyroidism - Thyroid profile includes TSH FT4; Future 3. Vitamin D deficiency - cholecalciferol, vitamin D3, (VITAMIN D3) 5,000 units tablet; Take 1 tablet (5,000 Units total) by mouth in the morning. Dispense: 90 tablet; Refill: 0 4. Chest pain, unspecified type - Stress test (exercise only); Future 5. Vertigo - meclizine (ANTIVERT) 12.5 mg tablet; Take 1 tablet (12.5 mg total) by mouth in the morning and 1 tablet (12.5 mg total) before bedtime. Dispense: 60 tablet; Refill: 1 6. 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 - amoxicillin (AMOXIL) 500 mg capsule; Take 1 capsule (500 mg total) by mouth in the morning and 1 capsule (500 mg total) before bedtime. Do all this for 7 days. Dispense: 14 capsule; Refill: 0 Orders Placed This Encounter Procedures Thyroid profile includes TSH FT4 Stress test (exercise only) Patient was seen for multiple symptoms including chest pain, dizziness, vertigo, and ear pain. We also reviewed the result of her thyroid profile. Plan Although patient has a negative cardiac blood work, there is a family history of heart attack with her grandfather. I will go ahead and get a stress test. If she is not able to complete exercise stress test the cardiology can change it to medications stress test. Will treat her for ear infection, I suspect that the ear infection could make her dizziness worse I suspect that her chest pain maybe related to anxiety, will start her on Zoloft for anxiety Will add hydroxyzine 12.5 mg to take as needed for anxiety Will decrease the dose of meclizine to 12.5 mg to see if with we reduced her side effects and work more effectively for her dizziness. I advised patient to keep her follow-up on January [address] Allen for re- evaluation of her symptoms. Will rechecked thyroid profile. Most recent ER records reviewed during this office visit. Side effects of prescribed medications reviewed with the patient. All the pertinent questions were answered. Patient noted to have elevated BMI and the following intervention(s) were applied: encouragement toexercise and prescribed diet education. Return in about 1 month (around 01/22/2025) for ear infection, dizziness, anxiety. This note is created with the assistance of a speech recognition program. While intending to generate a document that actually reflects the content of the visit, the document can still have some errors including those of syntax and sound a like substitutions which may escape proof reading. It such instances, actual meaning can be extrapolated by contextual diversion. ERON Barrett 12/23/24 1331 [facility] NoteXR CHEST 1 VW Procedure: Chest x-ray performed Number of views:1 History:Chest pain Comparison:03/13/2014 Findings: The heart and lungs show no acute findings, and the mediastinum and gloria are grossly negative . Impression: 1. No acute change. Finalized by Claude Sotelo MD on 11/29/2024 10:37 [facility] 10-18-2024 History of Present illness Narrative* ERON Tomlin - 10/18/2024 10:00 AM EDT Subjective Patient ID: Eli Leahy is a 33 y.o. female. Video Visit via Real-time Synchronous Audiovisual Provider Location: [facility] [address] [place] [id number] Patient Location: Patient's home Video Visit Consent Statement: I discussed risks, benefits, and alternatives of a real-time synchronous audiovisual consultation with the patient (and any accompanying persons) including the risks that the patient's personal health details and medical records will be discussed over real-time, synchronous, interactive video/audio/telecommunication technology, the visit will not be recorded withoutthe express consent of both the provider and the patient, and that there are some limitations compared to [id number] evaluations. The patient consented to the presence of additional virtual and/or in-person participants. We elected to proceed. LILIA Benitez presents via video visit as she is concerned about temporal pain. She reports she is feeling very drowsy after this pain occurs. She reports this has occurred on 2 occasions. She reports whenthis happened she had a sharp pain to the front of her face or temporal area that only lasted a fewsec and then she felt spacey and tired. She reports she felt like she was alert but felt like she was just there . She describes it is a quick shock that occurs. She reports it happened last and then again yesterday. She denies aura before this occurred. She reports she has gotten migraines in the past but not often, and never this type of pain. She thought maybe dehydration, however she drank water and gatorade, and despite increased fluids the same event occurred again. She does feel mild headache since yesterday to frontal of face. Thursday morning she reports having jaw pain, and today she has neck hurts. The following portions of the patient's history were reviewed and updated as appropriate: allergies, current medications, past family history, past medical history, past social history, past surgicalhistory, problem list, and medication reconciliation was completed including current medication andpost discharge medication. Review of Systems Constitutional: Positive for fatigue. Negative for chills, diaphoresis, fever and unexpected weightchange. HENT: Negative. Respiratory: Negative. Cardiovascular: Negative. Gastrointestinal: Negative. Skin: Negative. Neurological: Positive for headaches. Negative for weakness. Psychiatric/Behavioral: Negative for self-injury and suicidal ideas. Objective Physical Exam Constitutional: Comments: Video visit Psychiatric: Mood and Affect: Mood normal. Behavior: Behavior normal. Comments: Interacting and answering appropriately. Assessment/Plan Discussed need to ensure adequate fluid intake and also ensure increased electrolytes especially now with this heat. We will order wellness labs and additional labs for possible vitamin deficiency. Please keep a log and monitor if these symptoms are continuing to occur. I will send in steroid pack at this time for temporal pain. Discussed if these symptoms continue to occur we will need further evaluation and possibly need to rule out seizure. Eli was seen today for pain. Diagnoses and all orders for this visit: Healthcare maintenance - Lipid panel; Future - Comprehensive metabolic panel; Future - CBC auto differential; Future - Iron and TIBC; Future - TSH with Reflex; Future - Vitamin D 25 hydroxy; Future - Vitamin B12; Future Encounter for lipid screening for cardiovascular disease - Lipid panel; Future Anemia, unspecified type - CBC auto differential; Future - Iron and TIBC; Future - TSH with Reflex; Future Fatigue, unspecified type - TSH with Reflex; Future - Vitamin D 25 hydroxy; Future Paresthesia - TSH with Reflex; Future - Vitamin D 25 hydroxy; Future - Vitamin B12; Future Other orders - methylPREDNISolone (MEDROL, KADEN,) 4 mg tablet; Take 1 tablet (4 mg total) by mouth in the morning. follow package directions. ERON Tomlin 10/23/242101 documented in this encounterL[facility]07-[facility]25 Miscellaneous Notes* Telephone Encounter - Sweta Evans CNA - 10/05/2024 12:07 PM EDT Spoke to Eli. Verbalized understanding. ----- Message from ERON Tomlin sent at 09/22/2024 11:39 AM EDT ----- CT abdomen and pelvis is negative, except there is a small umbilical hernia. ----- Message ----- From: Interface - Rad Results/Orders In 1 Sent: 09/20/2024 11:27 AM EDT To: ERON Tomlin documented in this encounterLima [facility]07-09-2025 Telephone encounter Note* Telephone Encounter - Sweta Evans CNA - 10/05/2024 12:07 PM EDT Spoke to Eli. Verbalized understanding. ----- Message from ERON Tomlin sent at 09/22/2024 11:39 AM EDT ----- CT abdomen and pelvis is negative, except there is a small umbilical hernia. ----- Message ----- From: Interface - Rad Results/Orders In 1 Sent: 09/20/2024 11:27 AM EDT To: ERON Tomlin [facility]07-[facility] History of Present illness Narrative* ERON Tomlin - 10/05/2024 10:40 AM EDT Subjective Patient ID: Eli Leahy is a 33 y.o. female. HPI Eli presents to the office for follow up on GERD and knee pain. She has been taking Protonix 40 mg twice daily and reports this has been effective with GERD symptoms. However, she reports she has been having diarrhea often. She reports when she has diarrhea for the last 3-4 months. she does have abdominal cramping. She reports she feels better after having bowel movement. Eli was seen on 09/21/2024 for acute knee pain. She was instructed to rest ice and elevate leg and continue ibuprofen 800 mg twice daily with food. She was to continue knee brace and x-ray of left knee was ordered. X-ray completed on 09/27/2024 was negative. We were going to discuss additional imaging or physical therapy if knee pain continued. She reports she continues with pain and would like additional imaging. MRI ordered. Bilateral ear pain. A few days. Dizzy as well. The following portions of the patient's history were reviewed and updated as appropriate: allergies, current medications, past family history, past medical history, past social history, past surgicalhistory, problem list, and medication reconciliation was completed including current medication andpost discharge medication. Review of Systems Constitutional: Negative for chills, diaphoresis, fatigue, fever and unexpected weight change. HENT: Positive for ear pain. Respiratory: Negative. Cardiovascular: Negative. Gastrointestinal: Positive for diarrhea. Negative for blood in stool. Musculoskeletal: Positive for back pain. Skin: Negative. Neurological: Positive for dizziness. Psychiatric/Behavioral: Negative for self-injury and suicidal ideas. Objective Physical Exam Vitals and nursing note reviewed. Constitutional: General: She is not in acute distress. Appearance: Normal appearance. She is not ill-appearing. HENT: Head: Normocephalic and atraumatic. Right Ear: Ear canal and external ear normal. Tympanic membrane is not erythematous or retracted. Left Ear: Ear canal and external ear normal. Tympanic membrane is not erythematous or retracted. Ears: Comments: Fluid to bilateral TM. Neck: Vascular: No carotid bruit. Cardiovascular: Rate and Rhythm: Normal rate and regular rhythm. Pulses: Normal pulses. Heart sounds: Normal heart sounds. No murmur heard. Pulmonary: Effort: Pulmonary effort is normal. Breath sounds: Normal breath sounds. Abdominal: General: Bowel sounds are normal. Palpations: Abdomen is soft. Tenderness: There is no abdominal tenderness. Musculoskeletal: Cervical back: Normal range of motion and neck supple. Right lower leg: No edema. Left lower leg: No edema. Lymphadenopathy: Cervical: No cervical adenopathy. Skin: Findings: No erythema or rash. Neurological: General: No focal deficit present. Mental Status: She is alert and oriented to person, place, and time. Psychiatric: Mood and Affect: Mood normal. Behavior: Behavior normal. Assessment/Plan We will switch protonix to once daily as GERD symptoms are better controlled. Ensure adequate fluid intake. Recommend increase fiber intake. Recommend bland diet for the next week. Continue to monitor stools. MRI ordered for continued knee pain. Follow up in 3 months for GI issues. Eli was seen today for follow-up. Diagnoses and all orders for this visit: Gastroesophageal reflux disease, unspecified whether esophagitis present - pantoprazole (PROTONIX) 40 mg EC tablet; Take 1 tablet (40 mg total) by mouth every morning before breakfast. TAKE 1 TABLET (40 MG TOTAL) BY MOUTH IN THE MORNING AND BEFORE BEDTIME Acute pain of left knee - MR knee left without contrast; Future Other orders - polycarbophil (FIBERCON) 625 mg tablet; Take 1 tablet (625 mg total) by mouth in the morning. ERON Tomlin 10/11/24 1443 documented in this encounterL[facility]06-25-2025 History of Present illness Narrative* Lauryn Chanel, ERON - 09/21/2024 3:00 PM EDT Subjective CC: Left knee pain Patient ID: Eli Leahy is a 33 y.o. female. HPI Eli is here for complaint of left knee pain which started yesterday. States the entire area surrounding the knee cap is painful. Is able to walk without discomfort, but position changes such as squatting increases the knee pain. She denies any injury to the knee. 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 She has steel toe boots, orthotics and has a mat she can stand on. Unfortunately, states the matseems to make the pain in her knee worse. She started ibuprofen twice a day yesterday, and states she iced the knee yesterday, but didn't feel any of this helped. The following portions of the patient's history were reviewed and updated as appropriate: allergies, current medications, past family history, past medical history, past social history, past surgicalhistory, problem list, and medication reconciliation was completed including current medication andpost discharge medication. Review of Systems Constitutional: Positive for activity change. HENT: Negative. Eyes: Negative. Respiratory: Negative. Cardiovascular: Negative. Gastrointestinal: Negative. Musculoskeletal: Positive for gait problem and myalgias. Skin: Negative. Hematological: Negative. Psychiatric/Behavioral: Negative. Objective Physical Exam Vitals and nursing note reviewed. Constitutional: Appearance: Normal appearance. She is well-developed. Comments: BMI: 45.44 HENT: Head: Normocephalic and atraumatic. Right Ear: Hearing and external ear normal. Left Ear: Hearing and external ear normal. Nose: Nose normal. No rhinorrhea. Mouth/Throat: Lips: [place]. Mouth: Mucous membranes are moist. Pharynx: Oropharynx is clear. Uvula midline. No oropharyngeal exudate. Eyes: General: Lids are normal. Conjunctiva/sclera: Conjunctivae normal. Cardiovascular: Rate and Rhythm: Normal rate and regular rhythm. Pulses: Normal pulses. Heart sounds: Normal heart sounds. Pulmonary: Effort: Pulmonary effort is normal. Breath sounds: Normal breath sounds and air entry. Abdominal: General: There is no distension. Tenderness: There is no abdominal tenderness. Musculoskeletal: General: Tenderness present. Normal range of motion. Cervical back: Normal range of motion and neck supple. Left knee: Bony tenderness present. No swelling or deformity. Normal range of motion. Right lower leg: No edema. Left lower leg: No edema. Comments: Medial and lateral tenderness of left knee with palpation Lymphadenopathy: Cervical: No cervical adenopathy. Skin: General: Skin is warm and dry. Neurological: General: No focal deficit present. Mental Status: She is alert and oriented to person, place, and time. Psychiatric: Mood and Affect: Mood normal. Behavior: Behavior normal. Assessment/Plan RICE instructions given Continue Ibuprofen 800 mg 1 po bid, instructed on eating with medication, and using Prilosec Continue knee brace X-ray left knee Follow up in 2 weeks, may need PT or additional imaging Eli was seen today for knee pain. Diagnoses and all orders for this visit: Acute pain of left knee - X-ray knee left minimum 4 views; Future ERON Maddox 09/21/24 1542 documented in this encounterMayo [facility] HospitalBioDetego [id number] Miscellaneous Notes* Telephone Encounter - Linnea Stevenson CNA - 09/06/2024 12:53 PM EDT Abdomen and pelvis without contrast was approved, validate is from 09/06- 10/05 Authorization number [id number] documented in this encounterL[facility]06-10-2025 Telephone encounter Note* Telephone Encounter - Linnea Stevenson CNA - 09/06/2024 12:53 PM EDT Abdomen and pelvis without contrast was approved, validate is from 09/06- 10/05 Authorization number [id number] [facility]06-[facility] History of Present illness Narrative* Arturo Reyes APRN-BETTIE - 09/02/2024 7:40 AM EDT Subjective Patient ID: Eli Leahy is a 33 y.o. female. LILIA Benitez presents to the office with concern of stomach pains. She reports she has been having severe abdominal pain for the past week. Upon discussion it appears to be the epigastric area and she reports this radiates amongst the entire abdomen. She reports pain radiates around into the back and upinto the right shoulder. She reports these symptoms seemed to exacerbate after eating pizza the 1sttime and continues to exacerbate with different foods. She reports she is also having nausea and getting abdominal cramps and diarrhea. She reports she has been trying to change her diet to less fatty foods and that has helped minimally. She has been taking Tums and Zofran for symptoms. She also reports she has been having dizziness that has been worse the past 2 weeks. She reports she feels that the room is spinning and it causes her unable to focus. She reports the dizziness comesin waves and she feels that she will pass out. She also reports feeling like a hot flash. She reports this last occurred on Thursday. She has history of iron-deficiency anemia reports she has been taking her iron supplement routinely. The following portions of the patient's history were reviewed and updated as appropriate: allergies, current medications, past family history, past medical history, past social history, past surgicalhistory, problem list, and medication reconciliation was completed including current medication andpost discharge medication. Review of Systems Constitutional: Negative for chills, diaphoresis, fatigue, fever and unexpected weight change. HENT: Negative. Respiratory: Negative. Cardiovascular: Negative. Gastrointestinal: Positive for abdominal pain, diarrhea, nausea and vomiting. Negative for blood instool. Musculoskeletal: Positive for back pain. Skin: Negative. Neurological: Positive for dizziness. Psychiatric/Behavioral: Negative for self-injury and suicidal ideas. Objective Physical Exam Vitals and nursing note reviewed. Constitutional: General: She is not in acute distress. Appearance: Normal appearance. She is not ill-appearing. HENT: Head: Normocephalic and atraumatic. Cardiovascular: Rate and Rhythm: Normal rate and regular rhythm. Pulses: Normal pulses. Heart sounds: Normal heart sounds. No murmur heard. Pulmonary: Effort: Pulmonary effort is normal. Breath sounds: Normal breath sounds. Abdominal: General: Bowel sounds are normal. There is no distension. Palpations: Abdomen is soft. There is no mass. Tenderness: There is abdominal tenderness (RLQ tenderness). There is rebound. There is no guarding. Hernia: No hernia is present. Comments: Rebound tenderness Musculoskeletal: Right lower leg: No edema. Left lower leg: No edema. Skin: Findings: No erythema or rash. Neurological: General: No focal deficit present. Mental Status: She is alert and oriented to person, place, and time. Psychiatric: Mood and Affect: Mood normal. Behavior: Behavior normal. Assessment/Plan There is concern for possible gallbladder etiology, however after assessment I am concerned for Inflammation to appendix. Encouraged bland diet and low-fat low-cholesterol diet. Discussed warning signs and she will either call the office or go to the emergency room if symptomsworsen. Discussed if we are not able to get CT scan completed and symptoms severely worsen I can change the order to stat. We also discussed ordering labs however she will be due for wellness and labs in October. Right otitis media I will treat with Augmentin discussed side effects ensure to take with food. Encouraged increased hydration with electrolytes to see if this helps with dizziness. Start Protonix twice daily for 1 month as I am also concerned for acid reflux causing symptoms. Close follow up. Eli was seen today for abdominal pain. Diagnoses and all orders for this visit: Right non-suppurative otitis media - amoxicillin-pot clavulanate (AUGMENTIN) 875-125 mg per tablet; Take 1 tablet by mouth in the morning and 1 tablet before bedtime. Do all this for 7 days. Gastroesophageal reflux disease, unspecified whether esophagitis present - pantoprazole (PROTONIX) 40 mg EC tablet; Take 1 tablet (40 mg total) by mouth in the morning and 1 tablet (40 mg total) before bedtime. Right lower quadrant abdominal pain - CT abdomen and pelvis without contrast; Future Epigastric pain - CT abdomen and pelvis without contrast; Future Other orders - ondansetron (ZOFRAN) 4 mg tablet; Take 1 tablet (4 mg total) by mouth every 8 (eight) hours as needed for nausea or vomiting. ERON Tomlin 09/02/24 0851 documented in this encounterL[facility]01-27-2025 History of Present illness Narrative* ERON Tomlin - 04/25/2024 10:40 AM EST Subjective Patient ID: Eli Leahy is a 33 y.o. female. LILIA Benitez presents to the office for sick visit. She reports she began with symptoms Thursday and she has quickly worsened. She reports cough, chest pain, shortness of breath, congestion, body aches, lightheadedness, and phlegm production, but having trouble coughing it out. She has been taking albuterol nebulizer treatments and taking OTC medication with no relief. She reports her daughter was diagnosed with RSV. The following portions of the patient's history were reviewed and updated as appropriate: allergies, current medications, past family history, past medical history, past social history, past surgicalhistory, problem list, and medication reconciliation was completed including current medication andpost discharge medication. Review of Systems Constitutional: Positive for chills. Negative for diaphoresis, fatigue, fever and unexpected weightchange. HENT: Positive for congestion, ear pain, postnasal drip, rhinorrhea and sinus pressure. Respiratory: Positive for cough, chest tightness, shortness of breath and wheezing. Cardiovascular: Positive for chest pain. Objective Physical Exam Vitals and nursing note reviewed. Constitutional: Appearance: Normal appearance. HENT: Right Ear: Ear canal and external ear normal. Tympanic membrane is erythematous. Left Ear: Tympanic membrane, ear canal and external ear normal. Nose: Congestion and rhinorrhea present. Mouth/Throat: Mouth: Mucous membranes are moist. Pharynx: Oropharynx is clear. Posterior oropharyngeal erythema (mild) present. No oropharyngeal exudate. Eyes: Extraocular Movements: Extraocular movements intact. Conjunctiva/sclera: Conjunctivae normal. Cardiovascular: Rate and Rhythm: Normal rate and regular rhythm. Pulses: Normal pulses. Heart sounds: Normal heart sounds. Pulmonary: Effort: No respiratory distress. Breath sounds: No stridor. Wheezing (RLL and RUL) and rhonchi (RLL) present. Lymphadenopathy: Cervical: No cervical adenopathy. Skin: Capillary Refill: Capillary refill takes less than 2 seconds. Findings: No erythema or rash. Neurological: General: No focal deficit present. Mental Status: She is alert. Psychiatric: Mood and Affect: Mood normal. Behavior: Behavior normal. Assessment/Plan POCT covid/flu/RSV. Further treatment plan pending results. I will treat for acute bronchitis/right otitis media. Continue symptomatic treatment. She will call me if symptoms persist. Eli was seen today for cough and nasal congestion. Diagnoses and all orders for this visit: Acute cough - Cancel: SARS/FLU A+B/RSV by NAAT/Molecular (M4RT Collection Tube); Future - POCT Xpert, Xpress CoV-2, FLU, RSV Plus (Cepheid) Moderate persistent asthma, unspecified whether complicated - albuterol (PROVENTIL,VENTOLIN) 2.5 mg /3 mL (0.083 %) nebulizer solution; Inhale 3 mL (2.5 mg total) by nebulization every 4 (four) hours as needed for wheezing or shortness of breath. Acute bronchitis, unspecified organism - albuterol (PROVENTIL,VENTOLIN) 2.5 mg /3 mL (0.083 %) nebulizer solution; Inhale 3 mL (2.5 mg total) by nebulization every 4 (four) hours as needed for wheezing or shortness of breath. Right otitis media, unspecified otitis media type Other orders - amoxicillin-pot clavulanate (AUGMENTIN) 875-125 mg per tablet; Take 1 tablet by mouth in the morning and 1 tablet before bedtime. Do all this for 10 days. - guaiFENesin (MUCINEX) 600 mg tablet extended release 12hr; Take 1 tablet (600 mg total) by mouth every 12 (twelve) hours for 10 days. - predniSONE (DELTASONE) 20 mg tablet; Take 2 tablets (40 mg total) by mouth in the morning for 5 days. ERON Tomlin 04/25/24 1209 documented in this encounterLima [facility] Hospital11-05-2024 History of Present illness Narrative* ERON Tomlin - 02/02/2024 2:20 PM EST Subjective Video Visit via Real-time Synchronous Audiovisual Provider Location: [facility] [address] [place] [id number] Patient Location: Patient's home Video Visit Consent Statement: I discussed risks, benefits, and alternatives of a real-time synchronous audiovisual consultation with the patient (and any accompanying persons) including the risks that the patient's personal health details and medical records will be discussed over real-time, synchronous, interactive video/audio/telecommunication technology, the visit will not be recorded withoutthe express consent of both the provider and the patient, and that there are some limitations compared to [id number] evaluations. The patient consented to the presence of additional virtual and/or in-person participants. We elected to proceed. Patient ID: Eli Leahy is a 33 y.o. female. HPI Eli presents via video visit for dizziness with nausea. Eli reports while she was at work on Thursday she was bent over working on a machine, and when she got up, her vertigo started. She states it got so bad she had to leave work. She states she continues with dizziness and has been getting nauseous with it. She states fast movements make it worse. She states she has taken the meclizine, but it is not making the vertigo go away, it still persists today. She states she is concerned for ear infection as she started with allergy symptoms a few days prior, but Thursday morning she woke with ear pain and pressure. She also reports sinus congestion and pressure. No fever, body aches or chills. She states she feels that her asthma is acting up as she is feeling a little short of breath aswell. The following portions of the patient's history were reviewed and updated as appropriate: allergies, current medications, past family history, past medical history, past social history, past surgicalhistory, problem list, and medication reconciliation was completed including current medication andpost discharge medication. Review of Systems Constitutional: Negative for chills, diaphoresis, fever and unexpected weight change. HENT: Positive for congestion, ear pain, postnasal drip, rhinorrhea, sinus pressure and sinus pain.Negative for ear discharge. Respiratory: Positive for cough and shortness of breath. Cardiovascular: Negative. Neurological: Positive for dizziness and light-headedness. Negative for syncope, weakness and numbness. Objective Physical Exam Constitutional: General: She is not in acute distress. Appearance: Normal appearance. She is not ill-appearing. Comments: Video visit. HENT: Head: Normocephalic and atraumatic. Pulmonary: Effort: Pulmonary effort is normal. Neurological: Mental Status: She is alert. Psychiatric: Mood and Affect: Mood normal. Behavior: Behavior normal. Comments: Interacting appropriately. Assessment/Plan Possible otitis media with acute sinusitis. I will treat with augmentin, steroid pack, antihistamine, and flonase. If dizziness does not improve or she continues with ear pain, I need to see her in person. Ensure to stay hydrated. Work note provided. Eli was seen today for dizziness. Diagnoses and all orders for this visit: Moderate persistent asthma with acute exacerbation - albuterol (PROVENTIL HFA;VENTOLIN HFA) 90 mcg/actuation inhaler; Inhale 2 puffs every 4 (four) hours as needed for wheezing or shortness of breath. Other orders - methylPREDNISolone (MEDROL, KADEN,) 4 mg tablet; Take 1 tablet (4 mg total) by mouth in the morning. follow package directions. - fluticasone propionate (FLONASE) 50 mcg/actuation nasal spray; Administer 2 sprays into each nostril in the morning. - loratadine (CLARITIN) 10 mg tablet; Take 1 tablet (10 mg total) by mouth in the morning. - amoxicillin-pot clavulanate (AUGMENTIN) 875-125 mg per tablet; Take 1 tablet by mouth in the morning and 1 tablet before bedtime. Do all this for 7 days. ERON Tomlin 02/02/24 1457 documented in this encounterProvidence HospitalFood on the Table [id number] History of Present illness Narrative* CONNOR Otero - 12/30/2023 1:00 PM EDT Reason for Appointment: Patient ID: Eli Leahy is a 33 y.o. female who presents for Well Women Visit Patient presents today for Annual Exam. MEDICATIONS Current Outpatient Medications Medication Instructions ferrous sulfate 325 (65 Fe) MG tablet [...] FOOD montelukast (SINGULAIR) 10 mg, Oral, Daily predniSONE (Deltasone) 10 MG tablet 1 tablet twice daily x 7 days; followed by 1 tablet daily as directed until complete Wixela Inhub 250-50 MCG/ACT aerosol powder INHALE 1 PUFF BY MOUTH AND INTO THE LUNGS TWICE DAILY FOR 30 DAYS. RINSE AFTER USE ALLERGIES Allergies Allergen Reactions Shellfish Allergy Shortness of breath Iodine Unknown Other Unknown PROBLEMS Active Ambulatory Problems Diagnosis Date Noted No Active Ambulatory Problems Resolved Ambulatory Problems Diagnosis Date Noted No Resolved Ambulatory Problems Past Medical History: Diagnosis Date Allergic rhinitis Anemia in Asthma ([facility]/HCC) Cardiac murmur Hammer toe Heart palpitations Heartburn during HISTORY PAST MEDICAL HISTORY SOCIAL HISTORY Past Medical History: Diagnosis Date Allergic rhinitis Anemia in Asthma ([facility]/HCC) Cardiac murmur Hammer toe Heart palpitations Heartburn during Social History Tobacco Use Smoking status: Never [...] Objective: Physical Exam Constitutional: Appearance: Normal appearance. Genitourinary: Right Adnexa: not tender and no mass present. Left Adnexa: not tender and no mass present. No cervical discharge. Breasts: Breasts are soft. Right: Normal. Left: Normal. HENT: Head: Normocephalic. Nose: Nose normal. Mouth/Throat: Mouth: Mucous membranes are moist. Cardiovascular: Rate and Rhythm: Normal rate. Pulmonary: Effort: Pulmonary effort is normal. Abdominal: General: Bowel sounds are normal. Palpations: Abdomen is soft. Musculoskeletal: General: Normal range of motion. Cervical back: Normal range of motion. Neurological: General: No focal deficit present. Mental Status: She is alert. Skin: General: Skin is warm and dry. Psychiatric: Mood and Affect: Mood normal. Vitals and nursing note reviewed. Exam conducted with a piano assembler present. Vitals: Estimated body mass index is 45.89 kg/m as calculated from the following: Height as of this encounter: 5' 7 . Weight as of this encounter: 293 lb. BP: 110/70 Patient's last menstrual period was 11/30/2023. ASSESSMENT & PLAN ICD-10-CM 1. Well woman exam with routine gynecological exam Z01.419 Pap Smear HPV DNA probe, amplified Annual Exam: Patient presents today for an annual exam. Patient states she is doing well and has no complaints. Pap was obtained without difficulty. Orders Placed This Encounter Procedures HPV DNA probe, amplified Follow Up: Patient is to return in one year for annual unless needed otherwise. Documented by CONNOR Otero on behalf of: CONNOR Otero documented in this encounterJohn [facility]. [facility] [id number] Miscellaneous Notes* Telephone Encounter - Sweta Evans CNA - 12/10/2023 3:58 PM EDT Eli called office to inquire about FMLA paperwork for Vertigo. FABIAN gave patient fax number for employer to fax [employer] paperwork to office. [facility] Tele[facility] encounter Note* Telephone Encounter - Sweta Evans CNA - 12/10/2023 3:58 PM EDT Eli called office to inquire about FMLA paperwork for Vertigo. FABIAN gave patient fax number for employer to fax [employer] paperwork to office. [facility]08-21-[facility] Miscellaneous Notes* Telephone Encounter - Lisa Bunch CMA - 11/18/2023 1:57 PM EDT ----- Message from ERON Tomlin sent at 11/18/2023 1:38 PM EDT ----- Please let her know labs are unremarkable. * Telephone Encounter - Lisa Bunch CMA - 11/18/2023 1:57 PM EDT Called patient, no answer left message to call back * Telephone Encounter - Lisa Bunch CMA - 11/18/2023 1:57 PM EDT Patient called back into the office I did let her know about results, she verbalized understanding. documented [facility] Telephone encounter Note* Telephone Encounter - Lisa Bunch CMA - 11/18/2023 1:57 PM EDT ----- Message from ERON Tomlin sent at 11/18/2023 1:38 PM EDT ----- Please let her know labs are unremarkable. [facility] Telephone encounter Note* Telephone Encounter - Lisa Bunch CMA - 11/18/2023 1:57 PM EDT Called patient, no answer left message to call back [facility] Tele[facility] encounter Note* Telephone Encounter - Lisa Bunch CMA - 11/18/2023 1:57 PM EDT Patient called back into the office I did let her know about results, she verbalized understanding. [facility] History of Present illness Narrative* ERON Tomlin - 11/18/2023 8:30 AM EDT Subjective Patient ID: Eli Leahy is a 33 y.o. female. LILIA Benitez presents to the office with concern for vertigo. Eli reports she has history of Vertigo, as it has been ongoing intermittently for years, but worsening again the last few months. She is not sure what triggered it, but she would like to discuss FMLA for this as she had to call off work yesterday for it. Denies any recent illness or change in lifestyle. She reports starting congestion this morning and headache. She reports she has had some nausea with the vertigo as well. Reports headache is not typical. Ct brain in 2020- normal with pansinusitis. CTA head. Negative but if symptoms persist consider MRI. The following portions of the patient's history were reviewed and updated as appropriate: allergies, current medications, past family history, past medical history, past social history, past surgicalhistory, problem list, and medication reconciliation was completed including current medication andpost discharge medication. Review of Systems Constitutional: Positive for fatigue. Negative for chills, diaphoresis, fever and unexpected weightchange. HENT: Positive for congestion. Negative for ear discharge, ear pain, sore throat and trouble swallowing. Congestion started this morning Eyes: Negative. Respiratory: Negative for cough, chest tightness, shortness of breath and wheezing. Cardiovascular: Negative for chest pain, palpitations and leg swelling. Gastrointestinal: Positive for nausea. Negative for abdominal pain, blood in stool, constipation, diarrhea and vomiting. Endocrine: Negative for polydipsia, polyphagia and polyuria. Genitourinary: Negative for difficulty urinating, dysuria, flank pain, frequency, hematuria and urgency. Musculoskeletal: Negative for gait problem, joint swelling, myalgias and neck pain. Skin: Negative. Negative for color change and rash. Neurological: Positive for dizziness. Negative for tremors, syncope, weakness, light-headedness, numbness and headaches. Vertigo Psychiatric/Behavioral: Negative for self-injury and suicidal ideas. Objective Physical Exam Vitals and nursing note reviewed. Constitutional: General: She is not in acute distress. Appearance: Normal appearance. She is well-developed. She is not ill-appearing. HENT: Head: Normocephalic and atraumatic. Right Ear: Tympanic membrane, ear canal and external ear normal. Left Ear: Tympanic membrane, ear canal and external ear normal. Nose: Nose normal. No rhinorrhea. Mouth/Throat: Mouth: Mucous membranes are moist. Pharynx: No oropharyngeal exudate or posterior oropharyngeal erythema. Eyes: Extraocular Movements: Extraocular movements intact. Conjunctiva/sclera: Conjunctivae normal. Pupils: Pupils are equal, round, and reactive to light. Neck: Vascular: No carotid bruit. Cardiovascular: Rate and Rhythm: Normal rate and regular rhythm. Pulses: Normal pulses. Heart sounds: Normal heart sounds. No murmur heard. Pulmonary: Effort: Pulmonary effort is normal. No respiratory distress. Breath sounds: Normal breath sounds. No wheezing. Musculoskeletal: General: Normal range of motion. Cervical back: Normal range of motion and neck supple. No rigidity or tenderness. Comments: Strong equal strength bialterally Lymphadenopathy: Cervical: No cervical adenopathy. Skin: General: Skin is warm and dry. Capillary Refill: Capillary refill takes less than 2 seconds. Findings: No rash. Neurological: General: No focal deficit present. Mental Status: She is alert and oriented to person, place, and time. Psychiatric: Mood and Affect: Mood normal. Behavior: Behavior normal. Assessment/Plan Discussed intermittent FMLA for vertigo. Discussed 2 times monthly up to 2 days. She completed labs this morning. Since she has previously had evaluation for veritgo with CT brain and CTA head, no additional testing at this time. However, pending results, MRI may be warranted. Meclizine sent in PRN. She can do symptomatic treatment for congestion that started today, she will call the office if symptoms worsen. Eli was seen today for dizziness. Diagnoses and all orders for this visit: Vertigo - meclizine (ANTIVERT) 25 mg tablet; Chew 1 tablet (25 mg total) and swallow 3 (three) times a day as needed for dizziness. ERON Tomlin 11/18/23 0928 documented in this encounterL[facility]03-14-[facility]24 History of Present illness Narrative* ERON Tomlin - 06/11/2023 8:15 AM EDT Subjective Patient ID: Eli Leahy is a 32 y.o. female. Video Visit via Real-time Synchronous Audiovisual Provider Location: [facility] [address] [place] [phone] Patient Location: Patient's home Video Visit Consent Statement: I discussed risks, benefits, and alternatives of a real-time synchronous audiovisual consultation with the patient (and any accompanying persons) including the risks that the patient's personal health details and medical records will be discussed over real-time, synchronous, interactive video/audio/telecommunication technology, the visit will not be recorded withoutthe express consent of both the provider and the patient, and that there are some limitations compared to [id number] evaluations. The patient consented to the presence of additional virtual and/or in-person participants. We elected to proceed. LILIA Benitez presents via video visit as she has been having back pain and has not been able to work. She was seen on 05/26/2023 for back pain. We attempted steroid pack, flexeril, and NSAID, however pain continued. She reports she went to chiropractor on 06/02 whom completed xrays. She reports he informedher that she has herniated discs and will sign her to be off work until 06/14. She reports the pain is affecting the right lower back, and is going up the back affecting bilateral sides of lower back. She cannot sit or stand for a long period of time. She has been taking tylenol, ibuprofen, and flexeril PRN, applying ice and heat, finished the steroid pack and has been wearing a brace for her back, but pain continues. Which is why she needed to go to the chiropractor and cannot go back to work yet. She has been performing back stretches and exercises as recommended by chiropractor. Denies fever, chest pain, shortness of breath, palpitations, syncope, weakness to bilateral lower legs, saddle anesthesia, loss of control of bowel or bladder. The following portions of the patient's history were reviewed and updated as appropriate: allergies, current medications, past family history, past medical history, past social history, past surgicalhistory, problem list, and medication reconciliation was completed including current medication andpost discharge medication. Review of Systems Constitutional: Negative for chills, diaphoresis, fatigue, fever and unexpected weight change. HENT: Negative. Respiratory: Negative for cough, chest tightness, shortness of breath and wheezing. Cardiovascular: Negative for chest pain, palpitations and leg swelling. Gastrointestinal: Negative. Genitourinary: Negative. Musculoskeletal: Positive for arthralgias and back pain. Skin: Negative. Neurological: Negative for dizziness, syncope, weakness and light-headedness. Psychiatric/Behavioral: Negative for self-injury and suicidal ideas. Objective Physical Exam Unable to complete full physical exam via video visit. However, she does not appear to be in acute distress Assessment/Plan Request xray of spine from chiropractor. FMLA completed from 05/21/2023- 06/03/2023. She will be returning to work 06/14 as directed by chiropractor. She will call the office if symptoms continue. She may continue with tylenol, ibuprofen, and flexeril as needed for back pain. Continue with stretches and exercises are recommended by chiropractor. Eli was seen today for back pain. Diagnoses and all orders for this visit: Acute bilateral low back pain without sciatica ERON Tomlin 06/11/232131 documented in this encounterL[facility]02-27-[facility]24 History of Present illness Narrative* ERON Tomlin - 05/26/2023 11:45 AM EST Subjective Patient ID: Eli Leahy is a 32 y.o. female. HPI Eli presents to the office with concern for back pain. She reports she threw out her back aftersneezing on . She reports she felt a pop in her back, and ever since she has been having back pain that has been ongoing and seems to be getting worse. She reports the pain originally seemed to affect the the right lower back, but now it seems to be going up the back and affecting bilateral sides of lower back. She cannot sit or stand for a long period of time. She has been taking tylenol and ibuprofen PRN, applying ice and heat, and has been wearing a brace for her back, but pain continues. Eli reports she has history of having intermittent back pain, and has had sciatica pain, intermittently for a while , admits probably a few years. However, it usually gets better on her own, andthis time the pain is ongoing. Denies loss of control of bowel or bladder, denies saddle anesthesia, denies leg weakness, or tingling or numbness. Also, Eli reports she began this morning with nasal congestion and drainage. No fever, fatigue,chest pain, or shortness of breath. The following portions of the patient's history were reviewed and updated as appropriate: allergies, current medications, past family history, past medical history, past social history, past surgicalhistory, problem list, and medication reconciliation was completed including current medication andpost discharge medication. Review of Systems Constitutional: Negative for chills, diaphoresis, fatigue, fever and unexpected weight change. HENT: Positive for congestion, postnasal drip and rhinorrhea. Respiratory: Positive for cough. Negative for chest tightness, shortness of breath and wheezing. Cardiovascular: Negative for chest pain, palpitations and leg swelling. Gastrointestinal: Negative. Musculoskeletal: Positive for arthralgias and back pain. Negative for gait problem. Skin: Negative. Neurological: Negative for dizziness, syncope, weakness and numbness. Objective Physical Exam Vitals and nursing note reviewed. Constitutional: General: She is not in acute distress. Appearance: Normal appearance. She is not ill-appearing. HENT: Head: Normocephalic and atraumatic. Right Ear: Tympanic membrane, ear canal and external ear normal. Left Ear: Tympanic membrane, ear canal and external ear normal. Nose: Nose normal. Mouth/Throat: Mouth: Mucous membranes are moist. Pharynx: Oropharynx is clear. Posterior oropharyngeal erythema present. Eyes: Extraocular Movements: Extraocular movements intact. Pupils: Pupils are equal, round, and reactive to light. Neck: Vascular: No carotid bruit. Cardiovascular: Rate and Rhythm: Normal rate and regular rhythm. Pulses: Normal pulses. Heart sounds: Normal heart sounds. No murmur heard. Pulmonary: Effort: Pulmonary effort is normal. No respiratory distress. Breath sounds: Normal breath sounds. No stridor. No wheezing, rhonchi or rales. Musculoskeletal: Cervical back: Normal range of motion and neck supple. No rigidity or tenderness. Right lower leg: No edema. Left lower leg: No edema. Comments: She has lumbar paraspinal tenderness with percussion Lymphadenopathy: Cervical: No cervical adenopathy. Skin: General: Skin is warm and dry. Capillary Refill: Capillary refill takes less than 2 seconds. Findings: No erythema or rash. Neurological: General: No focal deficit present. Mental Status: She is alert. Psychiatric: Mood and Affect: Mood normal. Behavior: Behavior normal. Assessment/Plan We will send in muscle relaxer, NSAID, and steroid pack for increased back pain. I will sign her off work for the rest of the week. Encourage back exercises. She will let me know if back pain continues, we may need imaging and PT referral. She will attempt symptomatic treatment for URI, she will let me know if symptoms do not improve. Eli was seen today for back pain. Diagnoses and all orders for this visit: Upper respiratory tract infection, unspecified type Acute bilateral low back pain without sciatica Other orders - diclofenac (VOLTAREN) 75 mg EC tablet; Take 1 tablet (75 mg total) by mouth 2 (two) times a day as needed (back pain) for up to 10 days. - methylPREDNISolone (MEDROL, KADEN,) 4 mg tablet; Take 1 tablet (4 mg total) by mouth in the morning. follow package directions. - cyclobenzaprine (FLEXERIL) 5 mg tablet; Take 1 tablet (5 mg total) by mouth 3 (three) times a dayas needed for muscle spasms. - fluticasone propionate (FLONASE) 50 mcg/actuation nasal spray; Administer 2 sprays into each nostril in the morning. - guaiFENesin (MUCINEX) 600 mg tablet extended release 12hr; Take 1 tablet (600 mg total) by mouth every 12 (twelve) hours for 10 days. - loratadine (CLARITIN) 10 mg tablet; Take 1 tablet (10 mg total) by mouth in the morning. ERON Tomlin 05/26/232051 documented in this [facility]11-07-2022 NoteDISCHARGE SUMMARY DISCHARGE DATE: 02/05/2022 PRIMARY DIAGNOSES: 1. Intrauterine at 38+ weeks. 2. Active labor. 3. Previous . PROCEDURE: Repeat low transverse section. HOSPITAL COURSE: As expected. Please see chart for full details. LABORATORY DATA: Please see chart. COMPLICATIONS: None. DISCHARGE CONDITION: Stable. CONSULTATION: Anesthesia. DISCHARGE INSTRUCTIONS: 1. Diet: Regular. 2. Medications: a. Percocet 5/325 one to two p.o. every 4-6 hours p.r.n. pain. b. Motrin 800 one p.o. every 8 hours p.r.n. pain. 3. Followup in one week. Restrictions: Pelvic rest for 6 weeks. No heavy lifting. May drive when pain free and no longer on narcotics.[facility] [id number] NoteOPERATIVE NOTE OPERATION DATE: 02/03/2022 PROCEDURE: Repeat low transverse section. PREOPERATIVE DIAGNOSIS: 1. Intrauterine at 38+ weeks. 2. Spontaneous rupture of membranes. 3. Active labor. 4. Gestational diabetes mellitus. POSTOPERATIVE DIAGNOSIS: 1. Intrauterine at 38+ weeks. 2. Spontaneous rupture of membranes. 3. Active labor. 4. Gestational diabetes mellitus. ANESTHESIA: Spinal. SURGEON: Tom Lovelace D.O. COOK CHILI: HE Hernandez URINE OUTPUT: Yellow and clear. BLOOD LOSS: 700 mL. FINDINGS: Viable female. Apgars 9 at 1, 9 at 5. Weight unknown at this time. SPECIMEN: Placenta. PROCEDURE: Patient was taken back to the Operating Room where she was given a spinal anesthesia with Duramorph without difficulty. She was prepped and draped in the normal sterile fashion. A Pfannenstiel skin incision was then made 2 cm above the symphysis pubis and carried down to underlying rectus fascia using a Bovie. The fascia was incised in the midline and extended laterally using Manzo scissors. Two Ann clamps were placed on the superior aspect of the fascia and dissected off the underlying rectus muscles. The same was performed on the inferior aspect as well. The muscles were then in the midline. Peritoneum was identified and entered bluntly. The peritoneum was then extended superiorly and inferiorly with good visualization of the bladder. The bladder blade was inserted. A low transverse incision was made on the patient's uterus and extended laterally digitally. The was then delivered atraumatically after the bladder blade was removed in the cephalic position. The cord was clamped and cut. Cord blood was obtained. The infant was handed off to awaiting team. The patient's placenta was spontaneously delivered. The uterus was then exteriorized. The uterus was cleared of all clots and debris. The bladder blade was reinserted. The patient's uterine incision was closed using #0 Vicryl in a running lock fashion. Excellent hemostasis was assured. The uterus was then returned to the patient's abdomen. The patient's abdomen was copiously irrigated using warm saline. Peritoneal gutters were cleared of all clots and debris. Again excellent hemostasis was assured. The patient's peritoneum was closed using 3-0 Vicryl in a running fashion. The patient's fascia was closed using #0 Vicryl in a running fashion. The patient's skin was closed using 4-0 Vicryl subcuticularly. The patient tolerated the procedure well. Sponge, lap, and needle counts were correct x2. The patient was taken to the Recovery Room in stable condition.[facility] Diagnosis Well woman exam with routine gynecological exam Routine gynecological examination documented in this encounter [facility]* Diagnosis Acute cough- Primary Moderate persistent asthma, unspecified whether complicated Acute bronchitis, unspecified organism Right otitis media, unspecified otitis media type [facility] Diagnosis Upper respiratory tract infection, unspecified type- Primary Acute bilateral low back pain without sciatica documented [facility]* Diagnosis Acute bilateral back pain, unspecified back location- Primary Acute bilateral low back pain without sciatica Low back pain without sciatica, unspecified back pain laterality, unspecified chronicity documented [facility]* Diagnosis Health care maintenance- Primary Fatigue, unspecified type Anemia, unspecified type documented [facility]* Diagnosis Vertigo- Primary Dizziness and giddiness documented [facility]* Diagnosis Vertigo- Primary Dizziness and giddiness Moderate persistent asthma with acute exacerbation Acute maxillary sinusitis, recurrence not specified [facility]* Diagnosis Iron deficiency anemia, unspecified iron deficiency anemia type documented [facility]* Diagnosis Right non-suppurative otitis media- Primary Nonsuppurative otitis media, not specified as acute or chronic Gastroesophageal reflux disease, unspecified whether esophagitis present Right lower quadrant abdominal pain Epigastric pain Abdominal pain, epigastric documented [facility]* Diagnosis Acute pain of left knee- Primary documented [facility]* Diagnosis Gastroesophageal reflux disease, unspecified whether esophagitis present documented [facility]* Diagnosis Gastroesophageal reflux disease, unspecified whether esophagitis present- Primary Acute pain of left knee documented [facility]* Diagnosis Fatigue, unspecified type- Primary Healthcare maintenance Encounter for lipid screening for cardiovascular disease Anemia, unspecified type Paresthesia Disturbance of skin sensation documented [facility]* Diagnosis Anxiety- Primary Anxiety state, unspecified Subclinical hypothyroidism Other specified acquired hypothyroidism Vitamin D deficiency Chest pain, unspecified type Vertigo Dizziness and giddiness 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 documented [facility]* Diagnosis Anxiety Anxiety state, unspecified [facility] Diagnosis Mild persistent asthma with exacerbation- Primary Unspecified asthma, with exacerbation Upper respiratory infection, viral Anxiety Anxiety state, unspecified [facility]* Diagnosis Anxiety Anxiety state, unspecified documented in this encounter [facility] SystemEvaluation [facility]* Diagnosis Ear pain, bilateral- Primary Dizziness Dizziness and giddiness documented in this encounter [facility] SystemInstructionsNot on filedocumented in this encounter [facility] SystemInstructionsNot on filedocumented in this encounter [facility] SystemInstructionsNot on filedocumented in this encounter [facility] SystemInstructions* Attachments The following attachments cannot be sent through Care Everywhere. * Back Exercises (Egyptian) * Sciatica Exercises (Egyptian) documented in [facility] encounter[facility] [place] SystemInstructionsNot on file documented in this encounterPro[facility] [place] SystemInstructionsNot on file documented in this encounterPro[facility] [place] SystemInstructionsNot on file documented in this encounterSelect [facility] SystemInstructionsNot on file documented in this encounterSelect [facility] SystemInstructions* Attachments The following attachments cannot be sent through Care Everywhere. * Powell diet (Egyptian) * Low-fat diet (E[place]ian) documented in this encounter[facility] [place] SystemInstructionsNot on file documented in this encounterSelect [facility] SystemInstructions* Attachments The following attachments cannot be sent through Care Everywhere. * Knee Sprain ED (E[place]ian) documented in [facility] encounter[facility] SystemInstructions* Attachments The following attachments cannot be sent through Care Everywhere. * High-fiber diet (Egyptian) * Powell diet (Egyptian) documented in [facility] encounter[facility] [place] SystemInstructionsNot on file documented in this encounterSelect [facility] SystemInstructions* Attachments The following attachments cannot be sent through Care Everywhere. * Generalized anxiety disorder (E[place]ian) documented in this encounterPro[facility] [place] SystemInstructionsNot on file documented in this encounterSelect [facility] [place] SystemInstructionsNot on file documented in this encounterSelect [facility] SystemInstructions* Attachments The following attachments cannot be sent through Care Everywhere. * Asthma action plan for adults (E[place]ian) documented in this encounterSelect [facility] SystemInstructions* Attachments The following attachments cannot be sent through Care Everywhere. * Ear pain ED discharge instructions (E[place]ian) [facility] Family History No Family History Records FoundNo Family History Records FoundNo Family History Records FoundNo Family History Records FoundNo Family History Records FoundNo Family History Records Found Advance Directives No Advanced Directives Records FoundNo Advanced Directives Records FoundNo Advanced Directives Records FoundNo Advanced Directives Records FoundNo Advanced Directives Records FoundNo Advanced Directives Records Found Additional Source Comments INFORMATION SOURCE (unrecogn ized section and content) DATE CREATED AUTHOR 07/06/2019 [facility] DATE CREATED AUTHOR AUTHOR'S ORGANIZ ATION 08/02/2022 [facility] DATE CREATED AUTHOR AUTHOR'S ORGANIZ ATION 08/08/2022 [facility] DATE CREATED AUTHOR AUTHOR'S ORGANIZ ATION 01/01/2024 [facility] DATE CREATED AUTHOR AUTHOR'S ORGANIZ ATION 11/29/2024 [facility] DATE CREATED AUTHOR AUTHOR'S ORGANIZ ATION 02/05/2025 [facility] Reason for Visit (unrecogniz ed section and content) ReasonCommentsWell Women VisitReasonCommentsCoughX3 daysNasal CongestionX 3 days ReasonCommentsBack PainSneezed at work and felt a pop in backReason CommentsBack PainFMLA PaperworkReasonCommentsDizzinessReasonOnset DateComments FMLA12/10/2023easonCommentsMed Change RequestReasonCommentsMed RefillReason CommentsAbdominal PainReasonOnset ZqzoEcepakhxPA44/10/2025ReasonCommentsKnee PainReasonOnset CvbiNdxbbcjmDvpknvg71/09/2025ReasonCommentsFollow-upReason CommentsPainTemple x8 daysReasonCommentsFollow-upGI issues-taking medication once a day and feeling better.Nasal CongestionChest Congestion sick for 5 days started with sore throat on Thursday. Having clear drainage, children have been sick.ReasonCommentsFollow-upRight ear pain that comes and goes, dizziness is gone Care Teams (unrecognized sec tion and content) Team MemberRelationshipSpecialtyStart DateEnd Date Arturo Reyes MD PCP - GeneralFamily Medicine11/24/22am MemberRelationshipSpecialtyStart DateEnd Date Arturo Reyes MD PCP - GeneralFamily Medicine11/24/22am MemberRelationshipSpecialtyStart DateEnd Date Arturo Reyes MD PCP - GeneralFamily Medicine11/24/22am MemberRelationshipSpecialtyStart DateEnd Date rAturo Reyes APRN-FEEDER LOADER PCP - GeneralNurse Practitioner10/01/22am MemberRelationshipSpecialtyStart Date End Date Arturo Reyes APRN-BETTIE PCP - GeneralNurse Practitioner10/01/22 MemberRelationshipSpecialtyStart Date End Date Arturo Reyes APRN-BETTIE PCP - GeneralNurse Practitioner10/01/22 MemberRelationshipSpecialtyStart Date End Date Arturo Reyes APRN-FEEDER LOADER PCP - GeneralNurse Practitioner10/01/22 MemberRelationshipSpecialtyStart Date End Date Arturo Reyes APRN-FEEDER LOADER PCP - GeneralNurse Practitioner10/01/22am MemberRelationshipSpecialtyStart Date End Date Arturo Reyes APRN-FEEDER LOADER PCP - GeneralNurse Practitioner10/01/22am MemberRelationshipSpecialtyStart Date End Date Arturo Reyes APRN-FEEDER LOADER PCP - GeneralNurse Practitioner10/01/22am MemberRelationshipSpecialtyStart Date End Date Arturo Reyes APRN-FEEDER LOADER PCP - GeneralNurse Practitioner10/01/22Team MemberRelationshipSpecialtyStart Date End Date Arturo Reyes APRN-FEEDER LOADER PCP - GeneralNurse Practitioner10/01/22am MemberRelationshipSpecialtyStart Date End Date Arturo Reyes APRN-FEEDER LOADER PCP - GeneralNurse Practitioner10/01/22Team MemberRelationshipSpecialtyStart Date End Date Arturo Reyes APRN-FEEDER LOADER PCP - GeneralNurse Practitioner10/01/22Team MemberRelationshipSpecialtyStart Date End Date Arturo Reyes APRN-FEEDER LOADER [address] [place] [address] [place] [phone] PCP - GeneralFamily Medicine11/29/24Team MemberRelationshipSpecialtyStart DateEnd Date Arturo Reyes APRN-FEEDER LOADER [address] [place] [phone] PCP - GeneralFamily Medicine11/29/24Team MemberRelationshipSpecialtyStart DateEnd Date Arturo Reyes, VIDEO GAME ENGINEER-FEEDER LOADER [address] [place] [phone] PCP - GeneralFamily Medicine11/29/24Team MemberRelationshipSpecialtyStart DateEnd Date Arturo Reyes, VIDEO GAME ENGINEER-FEEDER LOADER [address] [place] [phone] PCP - GeneralFamily Medicine11/29/24Team MemberRelationshipSpecialtyStart DateEnd Date Arturo Reyes, VIDEO GAME ENGINEER-FEEDER LOADER [address] [place] [phone] PCP - GeneralFamily Medicine11/29/24Team MemberRelationshipSpecialtyStart DateEnd Date Arturo Reyes, VIDEO GAME ENGINEER-FEEDER LOADER [address] [place] [phone] PCP - GeneralFamily Medicine11/29/24Team MemberRelationshipSpecialtyStart DateEnd Date Arturo Reyes, VIDEO GAME ENGINEER-FEEDER LOADER [address] [place] [phone] PCP - GeneralFamily Medicine11/29/24Team MemberRelationshipSpecialtyStart DateEnd Date Arturo Reyes, VIDEO GAME ENGINEER-FEEDER LOADER [address] [place] [address], [place] [phone] [facility] - [facility]11/29/24 FOR RECORDS PERTAINING TO PATIENTS WHO ARE OR HAVE BEEN ENROLLED IN A CHEMICAL DEPENDENCY/SUBSTANCEABUSE PROGRAM, SOME INFORMATION MAY BE OMITTED. This clinical summary was aggregated from multiple sources. Caution should be exercised in using it in the provision of clinical care. This summary normalizes information from multiple sources, and as a consequence, information in this document may materially change the coding, format and clinical context of patient data. In addition, data may be omitted in some cases. CLINICAL DECISIONS SHOULD BE BASED ON THE PRIMARY CLINICAL RECORDS. [facility] [employer] [facility] provides no warranty or guarantee of the accuracy or completeness of information in this document.
== END 2025-02-22 15:22 | disposition home or self-care (01) ==
LOC: LAB 15:21
PROVIDERS: Visit Provider Physician Assistant
DX: Z01.419 Encounter for gynecological examination (general) (routine) without abnormal findings (principal)
CPT/HCPCS: 87624; 88175